=== PATIENT | female | born 1935 | race Two or more races ===

== ENCOUNTER 2017-05-02 21:19 | Inpatient (IN) | payer MEDICARE ==
[~2017-05-02] VITALS: Ht 167.6 cm; Wt 117.9 kg
[~2017-05-02 21:19] MED LIST: ARICEPT10 MG ORAL; ATORVASTATIN CA20 MG ORAL; AZITHROMYCIN500 M1 IVPB; DONEPEZIL HCL10 M2 ORAL; DUONEB 0.5-3(2.53 ML HHN; FUROSEMIDE20 M1 ORAL; LACTULOSE20 GM/301 ORAL; LANTUS SOL100 UNIT/1 SUBQ; LASIX20 M1 ORAL; LEVEMIR FL100 UNIT/1 SUBQ; LEXAPRO10 MG ORAL; LORAZEPAM1 MG ORAL; METOPROLOL TART25 MG ORAL; NAMENDA10 MG ORAL; NOVOLOG100 UNIT/3 SUBQ; NOVOLOG100 UNIT/4 SQ; NUEDEXTA 20-101 EAC1 PO; TYLENOL650 MG/20. ORAL
[2017-05-02] MEDS ORDERED: Albuterol/Ipratropium 3ml neb HHN ONE (21:30)
[2017-05-02 21:32] VITALS: BP 160/88
--- NOTE | 2017-05-02 21:44 | Emergency Room Report ---
History of Present Illness General Chief Complaint: Dyspnea/Respdistress Source: Patient Present Illness HPI Is an 81-year-old female with history of dementia and COPD. She presents with rest or distress. Onset tonight. Per EMS, nursing staff noted shortness of breath tonight. Consultation was 80% on room air. They put her on 4 L and it came up to 95%. Unable to get much history from the patient. No nausea no vomiting. No fever or chills. She does have coughing. Now complaining of chest pain. Allergies: Coded Allergies: ASPIRIN (Verified Allergy, Unknown, 12/30/15) CIPROFLOXACIN (Verified Allergy, Unknown, 12/30/15) PENICILLINS (Verified Allergy, Unknown, 12/30/15) Patient History Past Medical History: see triage record, old chart reviewed, COPD Past Surgical History: other Pertinent Family History: none Social History: Denies: smoking Now: No Immunizations: other Reviewed Nursing Documentation: PMH: Agreed, PSxH: Agreed Nursing Documentation-PMH Hx Hypertension: Yes Hx COPD: Yes Hx Diabetes: Yes Hx Cancer: No Hx Gastrointestinal Problems: Yes - GERD Hx Alzheimer's Disease: Yes Hx Weakness: Yes Review of Systems Eye: Denies: eye pain, blurred vision ENT: Denies: ear pain, nose congestion, throat swelling Respiratory: Reports: cough, shortness of breath Cardiovascular: Denies: chest pain, palpitations Gastrointestinal: Denies: abdominal pain, diarrhea, nausea, vomiting Musculoskeletal: Denies: back pain, joint pain Skin: Denies: rash Neurological: Denies: headache, numbness Endocrine: Denies: increased thirst, increased urine Hematologic/Lymphatic: Denies: easy bruising All Other Systems: negative except mentioned in HPI Physical Exam Vital Signs Date Time Temp Pulse Resp B/P (MAP) Pulse Ox O2 Delivery O2 Flow Rate FiO2 05/02/17 21:09 98 18 168/88 94 Nasal Cannula 4.0 05/02/17 21:32 98.3 vitals with hypoxia and hypertension Sp02 EP Interpretation: reviewed, abnormal General Appearance: well appearing, alert, mild distress, obese Head: normocephalic, atraumatic Eyes: bilateral eye PERRL, bilateral eye EOMI ENT: hearing grossly normal, normal pharynx Neck: full range of motion, supple, no meningismus Respiratory: chest non-tender, respiratory distress, decreased breath sounds, accessory muscle use, wheezing Cardiovascular #1: regular rate, rhythm, no murmur Gastrointestinal: normal bowel sounds, non tender, no mass, no organomegaly, no bruit, non-distended Musculoskeletal: back normal, gait/station normal, normal range of motion Neurologic: alert Psychiatric: mood/affect normal Skin: warm/dry Procedures Critical Care Time Critical Care Time Critical care is mandated in this patient who presented with acute respiratory failure. Patient require my urgent intervention to attenuate the risks of respiratory collapse which may lead to cardiovascular collapse and . Critical care time is 35 minutes excluding any reportable procedure. Critical care time included evaluation, multiple reevaluation, looking at old charts, interpreting laboratory and diagnostic data, discussing case with patient and family and consultants, and charting. Medical Decision Making Diagnostic Impression: Primary Impression: CHF exacerbation Qualified Codes: I50.9 - Heart failure, unspecified Additional Impressions: ACS (acute coronary syndrome) UTI (urinary tract infection) Qualified Codes: N30.00 - Acute cystitis without hematuria Acute respiratory failure with hypoxemia Proteinuria Qualified Codes: R80.9 - Proteinuria, unspecified Hyperglycemia due to type 2 diabetes mellitus Qualified Codes: E11.65 - Type 2 diabetes mellitus with hyperglycemia COPD exacerbation ER Course Patient presents with acute respiratory distress and hypoxia. Better after breathing treatment and oxygen. She does have component of CHF. Diuresed well after Lasix. Aspirin also given because of elevated troponin. Patient will be admitted for further workup. I contacted Dr. Jimenes for admission. Laboratory Tests Test 05/02/17 21:29 05/02/17 22:25 White Blood Count 9.0 K/UL (4.8-10.8) Red Blood Count 5.32 M/UL (4.20-5.40) Hemoglobin 12.8 G/DL (12.0-16.0) Hematocrit 45.3 % (37.0-47.0) Mean Corpuscular Volume 85 FL (80-99) Mean Corpuscular Hemoglobin 24.1 PG (27.0-31.0) L Mean Corpuscular Hemoglobin Concent 28.4 G/DL (32.0-36.0) L Red Cell Distribution Width 15.3 % (11.6-14.8) H Platelet Count 230 K/UL (150-450) Mean Platelet Volume 8.5 FL (6.5-10.1) Neutrophils (%) (Auto) 84.0 % (45.0-75.0) H Lymphocytes (%) (Auto) 7.9 % (20.0-45.0) L Monocytes (%) (Auto) 7.4 % (1.0-10.0) Eosinophils (%) (Auto) 0.1 % (0.0-3.0) Basophils (%) (Auto) 0.6 % (0.0-2.0) Prothrombin Time 10.7 SEC (9.30-11.50) Prothromb Time International Ratio 1.0 (0.9-1.1) Activated Partial Thromboplast Time 27 SEC (23-33) Sodium Level 143 MMOL/L (136-145) Potassium Level 4.5 MMOL/L (3.5-5.1) Chloride Level 104 MMOL/L (98-107) Carbon Dioxide Level 34 MMOL/L (21-32) H Anion Gap 5 mmol/L (5-15) Blood Urea Nitrogen 29 mg/dL (7-18) H Creatinine 1.1 MG/DL (0.55-1.30) Estimat Glomerular Filtration Rate mL/min (>60) Glucose Level 289 MG/DL (74-106) H Lactic Acid Level 1.50 mmol/L (0.66-2.22) Calcium Level 8.0 MG/DL (8.5-10.1) L Total Bilirubin 0.5 MG/DL (0.2-1.0) Aspartate Amino Transf (AST/SGOT) 23 U/L (15-37) Alanine Aminotransferase (ALT/SGPT) 15 U/L (12-78) Alkaline Phosphatase 139 U/L (46-116) H Total Creatine Kinase 74 U/L (26-308) Creatine Kinase MB 1.3 NG/ML (0.0-3.6) Creatine Kinase MB Relative Index 1.7 Troponin I 0.091 ng/mL (0.000-0.056) Pro-B-Type Natriuretic Peptide 2619 pg/mL (0-125) H Total Protein 8.4 G/DL (6.4-8.2) H Albumin 2.0 G/DL (3.4-5.0) L Globulin 6.4 g/dL Albumin/Globulin Ratio 0.3 (1.0-2.7) L Urine Color Yellow Urine Appearance Clear Urine pH 6 (4.5-8.0) Urine Specific [place] 1.015 (1.005-1.035) Urine Protein 3+ (NEGATIVE) H Urine Glucose (UA) Negative (NEGATIVE) Urine Ketones Negative (NEGATIVE) Urine Occult Blood 4+ (NEGATIVE) H Urine Nitrite Negative (NEGATIVE) Urine Bilirubin Negative (NEGATIVE) Urine Urobilinogen 4 MG/DL (0.0-1.0) H Urine Leukocyte Esterase 1+ (NEGATIVE) H Urine RBC 5-10 /HPF (0 - 2) H Urine WBC 2-4 /HPF (0 - 2) Urine Squamous Epithelial Cells Few /LPF (NONE/OCC) Urine Bacteria Moderate /HPF (NONE) H Urine Yeast Few /HPF (NONE) H Lab Results Impression labs with elevated BNP EKG Diagnostic Results Rate: normal Rhythm: NSR ST Segments: no acute changes Rhythm Strip Diag. Results Rhythm Strip Time: 21:44 Rate: 90 Rhythm: NSR, no PVC's, no ectopy Chest X-Ray Diagnostic Results Chest X-Ray Diagnostic Results : Chest X-Ray Ordered: Yes # of Views/Limited/Complete: 1 View Indication: Shortness of Breath EP Interpretation: Yes Interpretation: no effusion, no pneumothorax, other - Cardiomegaly, increasing vasc congestion. Impression: Other - chf Electronically Signed by: Juan José You MD Last Vital Signs Date Time Temp Pulse Resp B/P (MAP) Pulse Ox O2 Delivery O2 Flow Rate FiO2 05/02/17 21:38 92 18 Nasal Cannula 2.0 05/02/17 21:38 94 05/02/17 21:32 98.3 160/88 Status: improved Disposition: ADMITTED INPATIENT Condition: Serious JUAN JOSÉ YOU M.D. May 02, 2017 21:44
[2017-05-02] MEDS ORDERED: Solu-MEDROL 125mg Inj IVP ONE (21:45)
[2017-05-02] MEDS ORDERED: TOUJEO SOL300 UNIT/1 SQ (21:51)
[2017-05-02] MEDS ORDERED: POTASSIUM CHLO20 ME2 ORAL (21:51)
[2017-05-02] MEDS ORDERED: JANUVIA25 MG ORAL (21:51)
[2017-05-02 22:18] LABS: BASOPHILS % (AUTO) 0.6 % (0.0-2.0); EOSINOPHILS % (AUTO) 0.1 % (0.0-3.0); HEMATOCRIT 45.3 % (37.0-47.0); HEMOGLOBIN 12.8 G/DL (12.0-16.0); LYMPHOCYTES % (AUTO) 7.9 % (20.0-45.0); MEAN CORPUSCULAR VOLUME 85 FL (80-99); MONOCYTES % (AUTO) 7.4 % (1.0-10.0); PLATELET COUNT 230 K/UL (150-450); RED BLOOD COUNT 5.32 M/UL (4.20-5.40); RED CELL DISTRIBUTION WIDTH 15.3 % (11.6-14.8)
[2017-05-02 22:23] LABS: ANION GAP 5 mmol/L (5-15); BLOOD UREA NITROGEN 29 mg/dL (7-18); CARBON DIOXIDE 34 MMOL/L (21-32); CHLORIDE 104 MMOL/L (98-107); CREATININE 1.1 MG/DL (0.55-1.30); POTASSIUM 4.5 MMOL/L (3.5-5.1); SODIUM 143 MMOL/L (136-145)
[2017-05-02 22:37] LABS: ALANINE AMINOTRANSFERASE 15 U/L (12-78); ALBUMIN/GLOBULIN RATIO 0.3 (1.0-2.7); ALKALINE PHOSPHATASE 139 U/L (46-116); ASPARTATE AMINO TRANSFERASE 23 U/L (15-37); BILIRUBIN,TOTAL 0.5 MG/DL (0.2-1.0); CKMB 1.3 NG/ML (0.0-3.6); CREATINE KINASE 74 U/L (26-308)
[2017-05-02 22:51] LABS: APPEARANCE,URINE CLEAR; BILIRUBIN, URINE NEGATIVE (NEGATIVE); GLUCOSE, URINE (UA) NEGATIVE (NEGATIVE); KETONES,URINE NEGATIVE (NEGATIVE); LEUKOCYTE ESTERASE ,URINE 1+ (NEGATIVE); NITRITE,URINE NEGATIVE (NEGATIVE); PH,URINE 6 (4.5-8.0); PROTEIN,URINE 3+ (NEGATIVE); UROBILINOGEN,URINE 4 MG/DL (0.0-1.0)
[2017-05-02 22:52] LABS: COLOR,URINE YELLOW
[2017-05-02 23:09] VITALS: BP 158/80
[2017-05-02] MEDS ORDERED: Cefepime 1gm vial ONE (23:11)
[2017-05-02] MEDS ORDERED: Cefepime HCl 1 GM in D5W 55 ML IVPB ONE (23:15)
[2017-05-02] MEDS ORDERED: Enoxaparin 100mg Inj SUBQ ONE (23:15)
[2017-05-03] VITALS (10 sets, daily range): BP systolic 117–172; BP diastolic 62–92
[2017-05-03] MEDS ORDERED: Albuterol/Ipratropium 3ml neb HHN PRN (00:45)
[2017-05-03] MEDS ORDERED: Miralax 17gm pkt ORAL PRN (00:45)
[2017-05-03] MEDS: LORazepam 1mg tab ORAL SCH ×3 (06:11→17:16)
[2017-05-03] MEDS: NovoLOG Insulin Flexpen SUBQ SCH ×4 (07:34→21:00)
[2017-05-03] MEDS: Memantine 10mg tab ORAL SCH (09:13)
[2017-05-03] MEDS: Donepezil 10mg tab ORAL SCH (09:14)
--- NOTE | 2017-05-03 09:30 | History and Physical ---
History of Present Illness General Date patient seen: May 03, 2017 Reason for Hospitalization: Dyspnea/Respdistress Present Illness HPI 81-year-old female with history of dementia and COPD, HTN, morbid obesity, bed bound presented to ER with CC of respiratory distress distress. Onset tonight. Per EMS, nursing staff noted shortness of breath tonight. Consultation was 80% on room air. They put her on 4 L and it came up to 95%. Unable to get much history from the patient. No nausea no vomiting. No fever or chills. She does have coughing. Now complaining of chest pain. her troponin was elevated and she is admitted to telemetry for further management. Allergies: Coded Allergies: ASPIRIN (Verified Allergy, Unknown, 12/30/15) CIPROFLOXACIN (Verified Allergy, Unknown, 12/30/15) PENICILLINS (Verified Allergy, Unknown, 12/30/15) Medication History Scheduled Atorvastatin Calcium* (Atorvastatin Calcium*), 10 MG ORAL BEDTIME, (Reported) Azithromycin (Azithromycin), 500 MG IVPB Q24H, (Reported) Donepezil Hcl* (Donepezil Hcl*), 10 MG ORAL DAILY, (Reported) Donepezil Hcl* (Aricept*), 10 MG ORAL HS, (Reported) Escitalopram Oxalate* (Lexapro*), 10 MG ORAL DAILY, (Reported) Escitalopram Oxalate* (Lexapro*), 10 MG ORAL DAILY, (Reported) Furosemide* (Lasix*), 20 MG ORAL TWICE A DAY, (Reported) Furosemide* (Lasix*), 20 MG ORAL BID, (Reported) Insulin Aspart (Novolog), 12 UNIT SQ BID, (Reported) Insulin Aspart (Novolog), 8 UNIT SQ BEFORE BREAKFAST, (Reported) Insulin Aspart* (Novolog*), 0 SUBQ BEFORE MEALS AND HS, (Reported) Insulin Detemir (Levemir Flexpen), 60 SUBQ EVERY 12 HOURS, (Reported) Insulin Detemir (Levemir Flexpen), 60 SUBQ EVERY 12 HOURS, (Reported) Insulin Glargine (Lantus), 55 SUBQ EVERY 12 HOURS, (Reported) Ipratropium/Albuterol Sulfate (DuoNeb 0.5-3(2.5)mg/3ml), 3 ML HHN Q6HR, ( Reported) Lactulose (Lactulose*), 30 ML ORAL DAILY, (Reported) Lorazepam* (Lorazepam*), 1 MG ORAL EVERY 6 HOURS, (Reported) Memantine Hcl* (Namenda*), 10 MG ORAL DAILY, (Reported) Memantine Hcl* (Namenda*), 10 MG ORAL DAILY, (Reported) Metoprolol Tartrate* (Metoprolol Tartrate*), 25 MG ORAL DAILY, (Reported) Metoprolol Tartrate* (Metoprolol Tartrate*), 25 MG ORAL DAILY, (Reported) Potassium Chloride (Potassium Chloride), 20 MEQ ORAL DAILY, (Reported) Sitagliptin* (Januvia*), 100 MG ORAL DAILY, (Reported) Scheduled PRN Acetaminophen (Acetaminophen), 650 MG ORAL Q6H PRN for Mild Pain/Temp > 100.5, ( Reported) Ipratropium/Albuterol Sulfate (DuoNeb 0.5-3(2.5)mg/3ml), 3 ML HHN EVERY 6 HOURS PRN for Shortness of Breath, (Reported) Lactulose (Lactulose*), 30 ML ORAL DAILY PRN for Constipation, (Reported) Lorazepam* (Lorazepam*), 1 MG ORAL EVERY 6 HOURS PRN for For Anxiety, (Reported) Miscellaneous Medications Dextromethorphan Hbr/Quinidine (Nuedexta 20-10 Mg Capsule), 1 EACH PO, (Reported ) Insulin Glargine,Hum.rec.anlog (Toujeo Solostar), 300 UNIT SQ, (Reported) Lactulose (Lactulose*), 30 ML ORAL, (Reported) Patient History Healthcare decision maker Resuscitation status Advanced Directive on File Past Medical/Surgical History Past Medical/Surgical History: (1) Depression (2) Morbid obesity (3) Psychosis (4) ARJUN (obstructive sleep apnea) Review of Systems Respiratory: Reports: orthopnea, shortness of breath All Other Systems: negative except mentioned in HPI Physical Exam General Appearance: morbidly obese Lines, tubes and drains: peripheral HEENT: normocephalic, atraumatic Neck: non-tender, normal alignment Respiratory/Chest: chest wall non-tender, normal breath sounds Breasts: no masses Cardiovascular/Chest: normal peripheral pulses Abdomen: normal bowel sounds Genitourinary/Rectal: normal genital exam Extremities: normal range of motion Skin Exam: normal pigmentation Neurologic: it professional II-XII grossly normal Last 24 Hour Vital Signs Date Time Temp Pulse Resp B/P (MAP) Pulse Ox O2 Delivery O2 Flow Rate FiO2 05/03/17 05:28 80 17 143/64 94 Nasal Cannula 4.0 05/03/17 03:24 79 18 172/92 96 Nasal Cannula 4.0 05/03/17 01:10 94 30 163/87 93 Nasal Cannula 4.0 05/02/17 23:09 96 20 158/80 93 Nasal Cannula 4.0 05/02/17 22:29 82 17 99 Nasal Cannula 2.0 05/02/17 21:44 85 18 100 Nasal Cannula 2.0 05/02/17 21:38 92 18 Nasal Cannula 2.0 05/02/17 21:38 92 18 94 Room Air 2.0 05/02/17 21:32 98.3 91 22 160/88 93 Nasal Cannula 5.0 05/02/17 21:19 98 18 Nasal Cannula 4.0 05/02/17 21:09 98 18 168/88 94 Nasal Cannula 4.0 Intake and Output 05/02/17 05/03/17 19:00 07:00 Intake Total 1055 ml Output Total 330 ml Balance 725 ml Intake IV Total 1055 ml Output Urine Total 330 ml Laboratory Tests Test 05/02/17 21:29 05/02/17 22:25 05/03/17 05:17 White Blood Count 9.0 K/UL (4.8-10.8) Red Blood Count 5.32 M/UL (4.20-5.40) Hemoglobin 12.8 G/DL (12.0-16.0) Hematocrit 45.3 % (37.0-47.0) Mean Corpuscular Volume 85 FL (80-99) Mean Corpuscular Hemoglobin 24.1 PG (27.0-31.0) L Mean Corpuscular Hemoglobin Concent 28.4 G/DL (32.0-36.0) L Red Cell Distribution Width 15.3 % (11.6-14.8) H Platelet Count 230 K/UL (150-450) Mean Platelet Volume 8.5 FL (6.5-10.1) Neutrophils (%) (Auto) 84.0 % (45.0-75.0) H Lymphocytes (%) (Auto) 7.9 % (20.0-45.0) L Monocytes (%) (Auto) 7.4 % (1.0-10.0) Eosinophils (%) (Auto) 0.1 % (0.0-3.0) Basophils (%) (Auto) 0.6 % (0.0-2.0) Prothrombin Time 10.7 SEC (9.30-11.50) Prothromb Time International Ratio 1.0 (0.9-1.1) Activated Partial Thromboplast Time 27 SEC (23-33) Sodium Level 143 MMOL/L (136-145) Potassium Level 4.5 MMOL/L (3.5-5.1) Chloride Level 104 MMOL/L (98-107) Carbon Dioxide Level 34 MMOL/L (21-32) H Anion Gap 5 mmol/L (5-15) Blood Urea Nitrogen 29 mg/dL (7-18) H Creatinine 1.1 MG/DL (0.55-1.30) Estimat Glomerular Filtration Rate mL/min (>60) Glucose Level 289 MG/DL (74-106) H Lactic Acid Level 1.50 mmol/L (0.66-2.22) Calcium Level 8.0 MG/DL (8.5-10.1) L Total Bilirubin 0.5 MG/DL (0.2-1.0) Aspartate Amino Transf (AST/SGOT) 23 U/L (15-37) Alanine Aminotransferase (ALT/SGPT) 15 U/L (12-78) Alkaline Phosphatase 139 U/L (46-116) H Total Creatine Kinase 74 U/L (26-308) Creatine Kinase MB 1.3 NG/ML (0.0-3.6) Creatine Kinase MB Relative Index 1.7 Troponin I 0.091 ng/mL (0.000-0.056) 0.073 ng/mL (0.000-0.056) Pro-B-Type Natriuretic Peptide 2619 pg/mL (0-125) H Total Protein 8.4 G/DL (6.4-8.2) H Albumin 2.0 G/DL (3.4-5.0) L Globulin 6.4 g/dL Albumin/Globulin Ratio 0.3 (1.0-2.7) L Urine Color Yellow Urine Appearance Clear Urine pH 6 (4.5-8.0) Urine Specific [place] 1.015 (1.005-1.035) Urine Protein 3+ (NEGATIVE) H Urine Glucose (UA) Negative (NEGATIVE) Urine Ketones Negative (NEGATIVE) Urine Occult Blood 4+ (NEGATIVE) H Urine Nitrite Negative (NEGATIVE) Urine Bilirubin Negative (NEGATIVE) Urine Urobilinogen 4 MG/DL (0.0-1.0) H Urine Leukocyte Esterase 1+ (NEGATIVE) H Urine RBC 5-10 /HPF (0 - 2) H Urine WBC 2-4 /HPF (0 - 2) Urine Squamous Epithelial Cells Few /LPF (NONE/OCC) Urine Bacteria Moderate /HPF (NONE) H Urine Yeast Few /HPF (NONE) H Microbiology Date/Time Source Procedure Growth Status 05/02/17 21:29 Nasal Nares Influenza Types A,B Antigen (JAZMINE) - Final Complete Height (Feet): 5 Height (Inches): 6.00 Weight (Pounds): 260 Medications Current Medications Medications (Trade) Dose Ordered Sig/Marah Route PRN Reason Start Time Stop Time Status Last Admin Dose Admin Acetaminophen (Tylenol) 650 mg Q4H PRN ORAL Fever 05/03/17 00:45 06/02/17 00:44 Albuterol/ Ipratropium (Albuterol/ Ipratropium) 3 ml Q4H PRN HHN Shortness of Breath 05/03/17 00:45 05/08/17 00:44 Dextrose (Dextrose 50%) STAT PRN IV Hypoglycemia 05/03/17 00:45 06/02/17 00:44 Donepezil HCl (Aricept) 10 mg DAILY ORAL 05/03/17 09:00 06/02/17 08:59 05/03/17 09:14 Escitalopram Oxalate (Lexapro) 10 mg DAILY ORAL 05/03/17 09:00 06/02/17 08:59 05/03/17 09:14 Furosemide (Lasix) 40 mg EVERY 8 HOURS IV 05/03/17 06:00 06/02/17 05:59 05/03/17 06:11 Heparin Sodium (Porcine) (Heparin 5000 units/ml) 5,000 units EVERY 12 HOURS SUBQ 05/03/17 09:00 06/02/17 08:59 Insulin Aspart (NovoLOG) BEFORE MEALS AND HS SUBQ 05/03/17 07:30 06/02/17 07:29 05/03/17 07:34 Lorazepam (Ativan) 1 mg EVERY 6 HOURS ORAL 05/03/17 06:00 05/10/17 05:59 05/03/17 06:11 Memantine (Namenda) 10 mg DAILY ORAL 05/03/17 09:00 06/02/17 08:59 05/03/17 09:13 Ondansetron HCl (Zofran) 4 mg Q6H PRN IVP Nausea & Vomiting 05/03/17 00:45 06/02/17 00:44 Polyethylene Glycol (Miralax) 17 gm DAILYPRN PRN ORAL Constipation 05/03/17 00:45 06/02/17 00:44 Sitagliptin Phosphate (Januvia) 100 mg ACBREAKFAST ORAL 05/03/17 11:30 06/02/17 11:29 Temazepam (Restoril) 15 mg HSPRN PRN ORAL Insomnia 05/03/17 00:45 05/10/17 00:44 Assessment/Plan Problem List: (1) Acute respiratory failure with hypoxemia ICD Codes: J96.01 - Acute respiratory failure with hypoxia SNOMED: 915163425 (2) CHF exacerbation ICD Codes: I50.9 - Heart failure, unspecified SNOMED: 32261058, 18929495 Qualifiers: Qualified Codes: I50.9 - Heart failure, unspecified (3) Hyperglycemia due to type 2 diabetes mellitus ICD Codes: E11.65 - Type 2 diabetes mellitus with hyperglycemia SNOMED: 907657596749156, 06222410 Qualifiers: Qualified Codes: E11.65 - Type 2 diabetes mellitus with hyperglycemia (4) COPD exacerbation ICD Codes: J44.1 - Chronic obstructive pulmonary disease with (acute) exacerbation SNOMED: 280394798 (5) ACS (acute coronary syndrome) ICD Codes: I24.9 - Acute ischemic heart disease, unspecified SNOMED: 849373531 (6) Psychosis ICD Codes: F29 - Unspecified psychosis not due to a substance or known physiological condition SNOMED: 88818057 (7) ARJUN (obstructive sleep apnea) ICD Codes: G47.33 - Obstructive sleep apnea (adult) (pediatric) SNOMED: 34310419 (8) Depression ICD Codes: F32.9 - Major depressive disorder, single episode, unspecified SNOMED: 95251819 (9) Morbid obesity ICD Codes: E66.01 - Morbid (severe) obesity due to excess calories SNOMED: 550500608, 91634578339349 Assessment/Plan respiratorty treatment titrate fio2 diuretic f/u bnp cario evaluation dvt prophylaxis YEIMY SORENSEN May 03, 2017 09:30
[2017-05-03 09:54] LABS: HEMATOCRIT 42.2 % (37.0-47.0); HEMOGLOBIN 12.8 G/DL (12.0-16.0); MEAN CORPUSCULAR VOLUME 84 FL (80-99); PLATELET COUNT 217 K/UL (150-450); RED BLOOD COUNT 5.04 M/UL (4.20-5.40); RED CELL DISTRIBUTION WIDTH 15.4 % (11.6-14.8); WHITE BLOOD COUNT 8.8 K/UL (4.8-10.8)
[2017-05-03 10:13] LABS: ALANINE AMINOTRANSFERASE 23 U/L (12-78); ALBUMIN 1.9 G/DL (3.4-5.0); ALBUMIN/GLOBULIN RATIO 0.3 (1.0-2.7); ALKALINE PHOSPHATASE 138 U/L (46-116); ANION GAP 9 mmol/L (5-15); ASPARTATE AMINO TRANSFERASE 22 U/L (15-37); BILIRUBIN,TOTAL 0.4 MG/DL (0.2-1.0); BLOOD UREA NITROGEN 27 mg/dL (7-18); CALCIUM 7.9 MG/DL (8.5-10.1); CARBON DIOXIDE 32 MMOL/L (21-32); CHLORIDE 105 MMOL/L (98-107); CREATININE 1.1 MG/DL (0.55-1.30); POTASSIUM 4.4 MMOL/L (3.5-5.1); SODIUM 145 MMOL/L (136-145)
[2017-05-03] MEDS: Heparin 5000 units/ml inj SUBQ SCH ×2 (11:13→21:00)
--- NOTE | 2017-05-03 12:50 | Diagnostic Imaging Report ---
Indication: Dyspnea Comparison: 12/30/2015 A single view chest radiograph was obtained. Findings: Vascular prominence and interstitial opacities are present with cardiomegaly. Perifissural atelectasis versus a small amount of fissural fluid noted about the minor fissure. Bones are osteopenic. IMPRESSION: Suspected interstitial edema.
--- NOTE | 2017-05-03 17:38 | Cardiology Report ---
APPROVED REPORT EXAM: Two-dimensional and M-mode echocardiogram with Doppler and color Doppler. INDICATION Left ventricular function M-Mode DIMENSIONS IVSd1.4 (0.7-1.1cm)Left Atrium (MM)5.0 (1.6-4.0cm) LVDd3.7 (3.5-5.6cm)Aortic Root3.0 (2.0-3.7cm) PWd1.1 (0.7-1.1cm)Aortic Cusp Exc.2.0 (1.5-2.0cm) LVDs3.0 (2.5-4.0cm) PWs1.2 cm Other Information Technically limited study due to Technically limited and difficult study due to combative patient. Patient request to terminate exam early. Only parasternal views obtained. Normal left ventricular chamber size, systolic function and wall motion to extent visualized. Left ventricular ejection fraction estimated to be 60 %. Mild ventricular hypertrophy. Anterior Echo-free space, may be due to pericardial fat or effusion Mild left atrial enlargement. Focal aortic valve sclerosis with adequate cusp excursion. Thickened mitral valve leaflets with normal excursion. Mild mitral annulus and aortic root calcification. Pulmonic valve not well visualized. Normal tricuspid valve structure. STUDY INCOMPLETE DUE TO PTS LACK OF COOPERATION , NOT ALL STRUCTURES WERE VISUALIZED A color flow and spectral Doppler study was performed and revealed: Trace tricuspid regurgitation. Mild pulmonic regurgitation present.
--- NOTE | 2017-05-03 17:54 | Cardiology Report ---
APPROVED REPORT EKG Measurement Heart Ocly03ARNP LA [id number] Normal sinus rhythm Normal ECG
--- NOTE | 2017-05-03 18:57 | Cardiology Progress Note ---
Assessment/Plan Assessment/Plan [id number] Objective Last 24 Hour Vital Signs Date Time Temp Pulse Resp B/P (MAP) Pulse Ox O2 Delivery O2 Flow Rate FiO2 05/03/17 16:24 84 05/03/17 16:23 97.0 80 22 141/75 95 Nasal Cannula 4.0 05/03/17 15:38 98.2 80 21 144/60 94 Nasal Cannula 4.0 05/03/17 14:30 97.5 85 19 137/80 95 Nasal Cannula 4.0 05/03/17 12:40 98.2 87 15 126/62 97 Nasal Cannula 4.0 05/03/17 10:30 98.7 105 20 139/69 96 Nasal Cannula 4.0 05/03/17 09:04 89 21 152/75 94 Nasal Cannula 4.0 05/03/17 08:00 98.6 82 26 117/68 94 Nasal Cannula 4.0 05/03/17 05:28 80 17 143/64 94 Nasal Cannula 4.0 05/03/17 03:24 79 18 172/92 96 Nasal Cannula 4.0 05/03/17 01:10 94 30 163/87 93 Nasal Cannula 4.0 05/02/17 23:09 96 20 158/80 93 Nasal Cannula 4.0 05/02/17 22:29 82 17 99 Nasal Cannula 2.0 05/02/17 21:44 85 18 100 Nasal Cannula 2.0 05/02/17 21:38 92 18 Nasal Cannula 2.0 05/02/17 21:38 92 18 94 Room Air 2.0 05/02/17 21:32 98.3 91 22 160/88 93 Nasal Cannula 5.0 05/02/17 21:19 98 18 Nasal Cannula 4.0 05/02/17 21:09 98 18 168/88 94 Nasal Cannula 4.0 Intake and Output 05/02/17 05/03/17 19:00 07:00 Intake Total 1055 ml Output Total 330 ml Balance 725 ml Intake IV Total 1055 ml Output Urine Total 330 ml Laboratory Tests Test 05/02/17 21:29 05/02/17 22:25 05/03/17 05:17 White Blood Count 9.0 K/UL (4.8-10.8) 8.8 K/UL (4.8-10.8) Red Blood Count 5.32 M/UL (4.20-5.40) 5.04 M/UL (4.20-5.40) Hemoglobin 12.8 G/DL (12.0-16.0) 12.8 G/DL (12.0-16.0) Hematocrit 45.3 % (37.0-47.0) 42.2 % (37.0-47.0) Mean Corpuscular Volume 85 FL (80-99) 84 FL (80-99) Mean Corpuscular Hemoglobin 24.1 PG (27.0-31.0) L 25.3 PG (27.0-31.0) L Mean Corpuscular Hemoglobin Concent 28.4 G/DL (32.0-36.0) L 30.3 G/DL (32.0-36.0) L Red Cell Distribution Width 15.3 % (11.6-14.8) H 15.4 % (11.6-14.8) H Platelet Count 230 K/UL (150-450) 217 K/UL (150-450) Mean Platelet Volume 8.5 FL (6.5-10.1) 9.0 FL (6.5-10.1) Neutrophils (%) (Auto) 84.0 % (45.0-75.0) H % (45.0-75.0) Lymphocytes (%) (Auto) 7.9 % (20.0-45.0) L % (20.0-45.0) Monocytes (%) (Auto) 7.4 % (1.0-10.0) % (1.0-10.0) Eosinophils (%) (Auto) 0.1 % (0.0-3.0) % (0.0-3.0) Basophils (%) (Auto) 0.6 % (0.0-2.0) % (0.0-2.0) Prothrombin Time 10.7 SEC (9.30-11.50) Prothromb Time International Ratio 1.0 (0.9-1.1) Activated Partial Thromboplast Time 27 SEC (23-33) Sodium Level 143 MMOL/L (136-145) 145 MMOL/L (136-145) Potassium Level 4.5 MMOL/L (3.5-5.1) 4.4 MMOL/L (3.5-5.1) Chloride Level 104 MMOL/L (98-107) 105 MMOL/L (98-107) Carbon Dioxide Level 34 MMOL/L (21-32) H 32 MMOL/L (21-32) Anion Gap 5 mmol/L (5-15) 9 mmol/L (5-15) Blood Urea Nitrogen 29 mg/dL (7-18) H 27 mg/dL (7-18) H Creatinine 1.1 MG/DL (0.55-1.30) 1.1 MG/DL (0.55-1.30) Estimat Glomerular Filtration Rate mL/min (>60) mL/min (>60) Glucose Level 289 MG/DL (74-106) H 307 MG/DL (74-106) H Lactic Acid Level 1.50 mmol/L (0.66-2.22) Calcium Level 8.0 MG/DL (8.5-10.1) L 7.9 MG/DL (8.5-10.1) L Total Bilirubin 0.5 MG/DL (0.2-1.0) 0.4 MG/DL (0.2-1.0) Aspartate Amino Transf (AST/SGOT) 23 U/L (15-37) 22 U/L (15-37) Alanine Aminotransferase (ALT/SGPT) 15 U/L (12-78) 23 U/L (12-78) Alkaline Phosphatase 139 U/L (46-116) H 138 U/L (46-116) H Total Creatine Kinase 74 U/L (26-308) Creatine Kinase MB 1.3 NG/ML (0.0-3.6) Creatine Kinase MB Relative Index 1.7 Troponin I 0.091 ng/mL (0.000-0.056) 0.073 ng/mL (0.000-0.056) Pro-B-Type Natriuretic Peptide 2619 pg/mL (0-125) H 3080 pg/mL (0-125) H Total Protein 8.4 G/DL (6.4-8.2) H 8.5 G/DL (6.4-8.2) H Albumin 2.0 G/DL (3.4-5.0) L 1.9 G/DL (3.4-5.0) L Globulin 6.4 g/dL 6.6 g/dL Albumin/Globulin Ratio 0.3 (1.0-2.7) L 0.3 (1.0-2.7) L Urine Color Yellow Urine Appearance Clear Urine pH 6 (4.5-8.0) Urine Specific [place] 1.015 (1.005-1.035) Urine Protein 3+ (NEGATIVE) H Urine Glucose (UA) Negative (NEGATIVE) Urine Ketones Negative (NEGATIVE) Urine Occult Blood 4+ (NEGATIVE) H Urine Nitrite Negative (NEGATIVE) Urine Bilirubin Negative (NEGATIVE) Urine Urobilinogen 4 MG/DL (0.0-1.0) H Urine Leukocyte Esterase 1+ (NEGATIVE) H Urine RBC 5-10 /HPF (0 - 2) H Urine WBC 2-4 /HPF (0 - 2) Urine Squamous Epithelial Cells Few /LPF (NONE/OCC) Urine Bacteria Moderate /HPF (NONE) H Urine Yeast Few /HPF (NONE) H Differential Total Cells Counted 100 Neutrophils % (Manual) 89 % (45-75) H Lymphocytes % (Manual) 7 % (20-45) L Monocytes % (Manual) 4 % (1-10) Eosinophils % (Manual) 0 % (0-3) Basophils % (Manual) 0 % (0-2) Band Neutrophils 0 % (0-8) Platelet Estimate Adequate Platelet Morphology Normal Red Blood Cell Morphology Normal Microbiology Date/Time Source Procedure Growth Status 05/02/17 21:29 Nasal Nares Influenza Types A,B Antigen (JAZMINE) - Final Complete SOCORRO MINAYA May 03, 2017 18:56
[2017-05-04 00:39] VITALS: BP 120/74
[2017-05-04 04:32] VITALS: BP 119/68
[2017-05-04] MEDS: NovoLOG Insulin Flexpen SUBQ SCH ×4 (06:53→21:47)
[2017-05-04 08:00] VITALS: BP 121/74
[2017-05-04] MEDS: Donepezil 10mg tab ORAL SCH (08:11)
[2017-05-04] MEDS: Memantine 10mg tab ORAL SCH (08:11)
[2017-05-04] MEDS: Heparin 5000 units/ml inj SUBQ SCH ×2 (08:14→21:48)
[2017-05-04 08:41] LABS: BASOPHILS % (AUTO) 0.7 % (0.0-2.0); EOSINOPHILS % (AUTO) 0.5 % (0.0-3.0); HEMATOCRIT 44.9 % (37.0-47.0); HEMOGLOBIN 13.1 G/DL (12.0-16.0); MEAN CORPUSCULAR VOLUME 86 FL (80-99); MONOCYTES % (AUTO) 8.3 % (1.0-10.0); NEUTROPHILS % (AUTO) 81.5 % (45.0-75.0); PLATELET COUNT 237 K/UL (150-450); RED BLOOD COUNT 5.25 M/UL (4.20-5.40); RED CELL DISTRIBUTION WIDTH 15.3 % (11.6-14.8); WHITE BLOOD COUNT 10.2 K/UL (4.8-10.8)
--- NOTE | 2017-05-04 09:42 | Consultation ---
DATE OF CONSULTATION: 05/03/2017 CARDIOLOGY CONSULTATION CONSULTING PHYSICIAN: Camacho Cabrera M.D. ATTENDING/REFERRING PHYSICIAN: Brice John M.D. REASON FOR REFERRAL: Abnormal cardiac enzymes. HISTORY OF PRESENT ILLNESS: This is an elderly female, whose information is obtained completely from review of the patient's chart. The patient unfortunately is not able to provide any meaningful history. She is a [facility] and multiple medical problems. It appears that she was transferred from a convalescent facility because of shortness of breath. The patient is confused and has history of Alzheimer's. Initial oxygen saturation was 85% on room air. No pedal edema. No jugular venous distention. The patient denies any chest pain, nausea, and negative for dizziness. A 12-lead EKG was done. The patient's blood sugar was checked . 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 Her initial blood pressure when she was found by them was 167/88. The patient was subsequently evaluated in the emergency room, was noted to have abnormal cardiac enzymes, and this consultation was requested. PAST MEDICAL HISTORY: Positive for history of psychoses, Alzheimer disease, depression, alteration of mental status, chronic obstructive pulmonary disease, generalized muscle weakness, systemic hypertension, gastroesophageal reflux disease, schizophrenia, pseudobulbar affect, morbid obesity, restlessness and agitation, and diabetes mellitus type 2 with hyperglycemia. According to the chart also, the patient had last been hospitalized here in 12/2015. ALLERGIES: The patient is allergic to aspirin, Cipro, and penicillin. SOCIAL HISTORY: She is a [facility]. No smoking or drinking of alcoholic beverages at this time. REVIEW OF SYSTEMS: Unable to obtain. PHYSICAL EXAMINATION: GENERAL: Shows a morbidly obese elderly female, in no respiratory distress. She is very agitable and combative during my evaluation and would not allow me to fully evaluate her. VITAL SIGNS: Blood pressure is 141/75 with heart rate of 80, temperature 97 degrees, and on 4 liters nasal cannula, oxygen saturation 95%. LUNGS: Clear to auscultation anteriorly. CARDIAC: Regular rate and rhythm. No heaves, thrills noted. ABDOMEN: Soft, obese. Positive bowel sounds. EXTREMITIES: No edema. LABORATORY AND DIAGNOSTIC DATA: White count 8.8, hemoglobin 12.8, and platelet count 217,000. Sodium 145, potassium 4.4, chloride 105, bicarbonate 32, BUN 27, creatinine 1.1, glucose of 307, calcium 7.9. Alkaline phosphatase was 139. Troponin 0.091, 0.073. ProBNP is 2600 to 3000. Her coagulation studies, INR 1.3 and PTT of 27. Urinalysis was 5-10 RBCs, 2-4 WBCs, and she had a chest x-ray performed that shows interstitial edema possibly and an echocardiogram was performed that showed technically difficult study with limited evaluation, only parasternal views available, ejection fraction estimated at 60% on those views, mild left ventricular hypertrophy, and minimal valvular regurgitation. Diastolic dysfunction cannot be evaluated because of lack of cooperation by the patient. ASSESSMENT AND PLAN: 1. Hypoxemia. 2. Morbid obesity. 3. Psychoses, history of schizophrenia. 4. Systemic hypertension. 5. Diabetes mellitus with poor control. This patient has been admitted to the hospital. There are minor troponin abnormalities, but not significant enough to be identified as myocardial infarction. As of yet, the patient's electrocardiogram does not show any significant ST or T-wave abnormalities. The patient does not allow full examination. Echocardiogram was also limited because of the patient's non-cooperation. We will follow the trend of the cardiac enzymes and EKGs. Aspirin will be provided. Diuretics will be administered for possibility of interstitial edema in light of the findings, however, because of the patient's limited cooperation, limited evaluation is only possible. Camacho Cabrera M.D. DR: Estefany JOB#: [id number] CC:
--- NOTE | 2017-05-04 09:43 | Consultation ---
DATE OF CONSULTATION: 05/03/2016 NOTE: INCOMPLETE DICTATION CARDIOLOGY CONSULTATION CONSULTING PHYSICIAN: Camacho Cabrera M.D. REFERRING PHYSICIAN: Brice John M.D. REASON FOR REFERRAL: Abnormal cardiac enzymes. HISTORY OF PRESENT ILLNESS: This is an elderly female, who is really not able to provide any meaningful history, whatsoever. Information is obtained from the patient's chart. The patient was transferred from a convalescent facility. 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 Camacho Cabrera M.D. DR: Chavez JOB#: [id number] CC:
[2017-05-04 10:08] LABS: ALANINE AMINOTRANSFERASE 23 U/L (12-78); ALBUMIN 1.9 G/DL (3.4-5.0); ALBUMIN/GLOBULIN RATIO 0.3 (1.0-2.7); ALKALINE PHOSPHATASE 136 U/L (46-116); ANION GAP 4 mmol/L (5-15); ASPARTATE AMINO TRANSFERASE 23 U/L (15-37); BILIRUBIN,TOTAL 0.4 MG/DL (0.2-1.0); BLOOD UREA NITROGEN 29 mg/dL (7-18); CALCIUM 8.6 MG/DL (8.5-10.1); CARBON DIOXIDE 40 MMOL/L (21-32); CHLORIDE 103 MMOL/L (98-107); CREATININE 0.9 MG/DL (0.55-1.30); POTASSIUM 3.9 MMOL/L (3.5-5.1); SODIUM 149 MMOL/L (136-145)
[2017-05-04] MEDS: Metoprolol Succinate XL 25mg tab ORAL SCH (10:40)
--- NOTE | 2017-05-04 12:00 | Diagnostic Imaging Report ---
Indication: Dyspnea Technique: XRAY Chest 1v Comparison: 05/02/2017 Findings: Heart size and mediastinal contours are stable. There is slight improvement in interstitial opacification/edema. There is persistent patchy bilateral airspace opacities. No pneumothorax. No acute bony abnormality seen. Impression: Slight interval improvement in interstitial opacification/edema. Persistent streaky bilateral airspace opacities with slight improved aeration of the left lower lung compared to 2 days prior.
[2017-05-04 12:04] VITALS: BP 129/71
--- NOTE | 2017-05-04 13:43 | Wound Care Consultation ---
Wound Assessment Wound Assessment : Wound Number: 1 Wound Present on Admission: Yes New Wound: No Status Change of Wound: No Wound Location Body Site Modif: mid Wound Location Body Site: other - Sacrococcygeal Wound Type: pressure ulcer Denny Test: Does not Denny Pressure Ulcer Stage: Deep Tissue Injury - SDTI Wound Thickness: Full Thickness Wound Length: 4.5 Wound Width: 3.5 Wound Depth: utd Percent of Wound Black/Brown: 100 - brown Wound Drainage Amount: None Wound Drainage Odor: None/Absent Tissue Surrounding Wound: Intact Wound General Appearance: Reddened - brown Wound Comment #1 Sacrococcygeal SDTI pressure ulcer Recommendation -Local wound care per protocol -Keep clean and dry -Turn and reposition -Optimize nutrition -Offload both heels -Heel protector on both heels -Assess and f/u accordingly for any changes RIC MILLARD RN May 04, 2017 13:43
--- NOTE | 2017-05-04 14:51 | Pulmonology Progress Note ---
Assessment/Plan Problems: (1) Acute respiratory failure with hypoxemia (2) CHF exacerbation (3) Hyperglycemia due to type 2 diabetes mellitus (4) COPD exacerbation (5) ACS (acute coronary syndrome) (6) Psychosis (7) ARJUN (obstructive sleep apnea) (8) Depression (9) Morbid obesity Assessment/Plan improving titrate fio2 cxr bnp in am continue diuretics check bun/creatinine dvt prohylaxis Subjective ROS Limited/Unobtainable: No Constitutional: Reports: no symptoms HEENT: Repors: no symptoms Cardiovascular: Reports: no symptoms Genitourinary: Reports: no symptoms Neurologic: Reports: no symptoms Allergies: Coded Allergies: ASPIRIN (Verified Allergy, Unknown, 12/30/15) CIPROFLOXACIN (Verified Allergy, Unknown, 12/30/15) PENICILLINS (Verified Allergy, Unknown, 12/30/15) Objective Last 24 Hour Vital Signs Date Time Temp Pulse Resp B/P (MAP) Pulse Ox O2 Delivery O2 Flow Rate FiO2 05/04/17 12:04 97.5 105 20 129/71 98 Nasal Cannula 05/04/17 11:48 102 05/04/17 10:40 102 121/74 05/04/17 09:55 102 05/04/17 08:00 97.2 102 20 121/74 98 Nasal Cannula 05/04/17 04:32 96.8 78 20 119/68 98 Nasal Cannula 05/04/17 04:00 97 05/04/17 00:39 97.5 84 20 120/74 Nasal Cannula 05/04/17 00:00 119 05/03/17 20:58 97.2 97 20 153/72 Nasal Cannula 05/03/17 20:00 88 05/03/17 16:24 84 05/03/17 16:23 97.0 80 22 141/75 95 Nasal Cannula 4.0 05/03/17 15:38 98.2 80 21 144/60 94 Nasal Cannula 4.0 Intake and Output 05/03/17 05/04/17 19:00 07:00 Output Total 1200 ml 1000 ml Balance -1200 ml -1000 ml Output Urine Total 1200 ml 1000 ml # Bowel Movements 1 General Appearance: WD/WN HEENT: normocephalic Respiratory/Chest: chest wall non-tender, lungs clear Breasts: no masses Cardiovascular: normal peripheral pulses Abdomen: normal bowel sounds, soft, non tender, no organomegaly Genitourinary: normal external genitalia Skin: no lesions 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 Microbiology Date/Time Source Procedure Growth Status 05/02/17 21:39 Blood Blood Culture - Preliminary NO GROWTH AFTER 24 HOURS Resulted 05/02/17 21:29 Blood Blood Culture - Preliminary NO GROWTH AFTER 24 HOURS Resulted 05/02/17 21:29 Nasal Nares Influenza Types A,B Antigen (JAZMINE) - Final Complete 05/02/17 22:25 Urine,Clean Catch Urine Culture - Preliminary Gram Negative Bacillus 1 Resulted Laboratory Tests 05/04/17 08:11: White Blood Count 10.2, Red Blood Count 5.25, Hemoglobin 13.1, Hematocrit 44.9, Mean Corpuscular Volume 86, Mean Corpuscular Hemoglobin 25.0L, Mean Corpuscular Hemoglobin Concent 29.2L, Red Cell Distribution Width 15.3H, Platelet Count 237 , Mean Platelet Volume 9.3, Neutrophils (%) (Auto) 81.5H, Lymphocytes (%) (Auto ) 9.0L, Monocytes (%) (Auto) 8.3, Eosinophils (%) (Auto) 0.5, Basophils (%) ( Auto) 0.7, Sodium Level 149H, Potassium Level 3.9, Chloride Level 103, Carbon Dioxide Level 40H, Anion Gap 4L, Blood Urea Nitrogen 29H, Creatinine 0.9, Estimat Glomerular Filtration Rate , Glucose Level 172#H, Calcium Level 8.6, Total Bilirubin 0.4, Aspartate Amino Transf (AST/SGOT) 23, Alanine Aminotransferase (ALT/SGPT) 23, Alkaline Phosphatase 136H, Troponin I 0.043, Pro -B-Type Natriuretic Peptide 1725H, Total Protein 7.6, Albumin 1.9L, Globulin 5.7 , Albumin/Globulin Ratio 0.3L Current Medications Medications (Trade) Dose Ordered Sig/Marah Route PRN Reason Start Time Stop Time Status Last Admin Dose Admin Acetaminophen (Tylenol) 650 mg Q4H PRN ORAL Fever 05/03/17 00:45 06/02/17 00:44 Albuterol/ Ipratropium (Albuterol/ Ipratropium) 3 ml Q4H PRN HHN Shortness of Breath 05/03/17 00:45 05/08/17 00:44 Dextrose (Dextrose 50%) STAT PRN IV Hypoglycemia 05/03/17 00:45 06/02/17 00:44 Donepezil HCl (Aricept) 10 mg DAILY ORAL 05/03/17 09:00 06/02/17 08:59 05/04/17 08:11 Escitalopram Oxalate (Lexapro) 10 mg DAILY ORAL 05/03/17 09:00 06/02/17 08:59 05/04/17 08:11 Furosemide (Lasix) 40 mg EVERY 8 HOURS IV 05/03/17 06:00 06/02/17 05:59 05/04/17 13:48 Heparin Sodium (Porcine) (Heparin 5000 units/ml) 5,000 units EVERY 12 HOURS SUBQ 05/03/17 09:00 06/02/17 08:59 05/04/17 08:14 Insulin Aspart (NovoLOG) BEFORE MEALS AND HS SUBQ 05/03/17 07:30 06/02/17 07:29 05/04/17 11:48 Lorazepam (Ativan) 1 mg Q6H PRN ORAL Agitation 05/03/17 21:45 05/10/17 21:44 Memantine (Namenda) 10 mg DAILY ORAL 05/03/17 09:00 06/02/17 08:59 05/04/17 08:11 Metoprolol Succinate (Toprol XL) 25 mg DAILY ORAL 05/04/17 11:00 06/03/17 10:59 05/04/17 10:40 Ondansetron HCl (Zofran) 4 mg Q6H PRN IVP Nausea & Vomiting 05/03/17 00:45 06/02/17 00:44 Polyethylene Glycol (Miralax) 17 gm DAILYPRN PRN ORAL Constipation 05/03/17 00:45 06/02/17 00:44 Potassium Chloride (K-Dur) 20 meq DAILY ORAL 05/04/17 11:00 06/03/17 10:59 05/04/17 10:39 Sitagliptin Phosphate (Januvia) 100 mg ACBREAKFAST ORAL 05/03/17 11:30 06/02/17 11:29 05/04/17 06:51 Temazepam (Restoril) 15 mg HSPRN PRN ORAL Insomnia 05/03/17 00:45 05/10/17 00:44 YEIMY SORENSEN May 04, 2017 14:51
[2017-05-04 15:26] VITALS: BP 110/79
[2017-05-04 20:27] VITALS: BP 138/77
--- NOTE | 2017-05-04 20:36 | Cardiology Progress Note ---
Assessment/Plan Assessment/Plan 1. Hypoxemia. 2. Morbid obesity. 3. Psychoses, history of schizophrenia. 4. Systemic hypertension. 5. Diabetes mellitus with poor control. 6. probable diastolic failure cxr showed impormvene fo edema trop min better but nwo in [id number] norla range dejnies any cp tele neg echo noted tech limited due to pt lack of cooperation pt is mroe awake today duplex neg repeat ekg adn trop diureitc Subjective Cardiovascular: Denies: chest pain Respiratory: Denies: shortness of breath Gastrointestinal/Abdominal: Denies: abdominal pain Genitourinary: Denies: burning Objective Last 24 Hour Vital Signs Date Time Temp Pulse Resp B/P (MAP) Pulse Ox O2 Delivery O2 Flow Rate FiO2 05/04/17 20:27 98.0 92 20 138/77 95 05/04/17 15:26 97.9 102 20 110/79 93 Nasal Cannula 3.0 05/04/17 15:12 108 05/04/17 12:04 97.5 105 20 129/71 98 Nasal Cannula 05/04/17 11:48 102 05/04/17 10:40 102 121/74 05/04/17 09:55 102 05/04/17 08:00 97.2 102 20 121/74 98 Nasal Cannula 05/04/17 04:32 96.8 78 20 119/68 98 Nasal Cannula 05/04/17 04:00 97 05/04/17 00:39 97.5 84 20 120/74 Nasal Cannula 05/04/17 00:00 119 05/03/17 20:58 97.2 97 20 153/72 Nasal Cannula General Appearance: no apparent distress, alert Cardiovascular: normal rate, regular rhythm Respiratory/Chest: crackles/rales Abdomen: normal bowel sounds, non tender, soft Extremities: no swelling Intake and Output 05/03/17 05/04/17 19:00 07:00 Output Total 1200 ml 1000 ml Balance -1200 ml -1000 ml Output Urine Total 1200 ml 1000 ml # Bowel Movements 1 Laboratory Tests Test 05/04/17 08:11 White Blood Count 10.2 K/UL (4.8-10.8) Red Blood Count 5.25 M/UL (4.20-5.40) Hemoglobin 13.1 G/DL (12.0-16.0) Hematocrit 44.9 % (37.0-47.0) Mean Corpuscular Volume 86 FL (80-99) Mean Corpuscular Hemoglobin 25.0 PG (27.0-31.0) L Mean Corpuscular Hemoglobin Concent 29.2 G/DL (32.0-36.0) L Red Cell Distribution Width 15.3 % (11.6-14.8) H Platelet Count 237 K/UL (150-450) Mean Platelet Volume 9.3 FL (6.5-10.1) Neutrophils (%) (Auto) 81.5 % (45.0-75.0) H Lymphocytes (%) (Auto) 9.0 % (20.0-45.0) L Monocytes (%) (Auto) 8.3 % (1.0-10.0) Eosinophils (%) (Auto) 0.5 % (0.0-3.0) Basophils (%) (Auto) 0.7 % (0.0-2.0) Sodium Level 149 MMOL/L (136-145) H Potassium Level 3.9 MMOL/L (3.5-5.1) Chloride Level 103 MMOL/L (98-107) Carbon Dioxide Level 40 MMOL/L (21-32) H Anion Gap 4 mmol/L (5-15) L Blood Urea Nitrogen 29 mg/dL (7-18) H Creatinine 0.9 MG/DL (0.55-1.30) Estimat Glomerular Filtration Rate mL/min (>60) Glucose Level 172 MG/DL (74-106) #H Calcium Level 8.6 MG/DL (8.5-10.1) Total Bilirubin 0.4 MG/DL (0.2-1.0) Aspartate Amino Transf (AST/SGOT) 23 U/L (15-37) Alanine Aminotransferase (ALT/SGPT) 23 U/L (12-78) Alkaline Phosphatase 136 U/L (46-116) H Troponin I 0.043 ng/mL (0.000-0.056) Pro-B-Type Natriuretic Peptide 1725 pg/mL (0-125) H Total Protein 7.6 G/DL (6.4-8.2) Albumin 1.9 G/DL (3.4-5.0) L Globulin 5.7 g/dL Albumin/Globulin Ratio 0.3 (1.0-2.7) L Microbiology Date/Time Source Procedure Growth Status 05/02/17 21:39 Blood Blood Culture - Preliminary NO GROWTH AFTER 24 HOURS Resulted 05/02/17 21:29 Blood Blood Culture - Preliminary NO GROWTH AFTER 24 HOURS Resulted 05/02/17 21:29 Nasal Nares Influenza Types A,B Antigen (JAZMINE) - Final Complete 05/02/17 22:25 Urine,Clean Catch Urine Culture - Preliminary Gram Negative Bacillus 1 Resulted SOCORRO MINAYA May 04, 2017 20:36
[2017-05-04] MEDS ORDERED: Metoprolol 5mg/5ml Inj IVP ONE (22:45)
[2017-05-05] VITALS: BP 136/71
[2017-05-05] MEDS: NovoLOG Insulin Flexpen SUBQ SCH ×4 (06:25→20:24)
[2017-05-05 07:36] VITALS: BP 139/89
[2017-05-05] MEDS: Donepezil 10mg tab ORAL SCH (08:04)
[2017-05-05] MEDS: Metoprolol Succinate XL 25mg tab ORAL SCH (08:04)
[2017-05-05] MEDS: Memantine 10mg tab ORAL SCH (08:04)
[2017-05-05] MEDS: Heparin 5000 units/ml inj SUBQ SCH ×2 (08:10→20:24)
[2017-05-05 11:35] LABS: BASOPHILS % (AUTO) 0.7 % (0.0-2.0); EOSINOPHILS % (AUTO) 2.7 % (0.0-3.0); HEMOGLOBIN 13.5 G/DL (12.0-16.0); LYMPHOCYTES % (AUTO) 13.7 % (20.0-45.0); MEAN CORPUSCULAR VOLUME 85 FL (80-99); MONOCYTES % (AUTO) 7.3 % (1.0-10.0); NEUTROPHILS % (AUTO) 75.7 % (45.0-75.0); PLATELET COUNT 235 K/UL (150-450); RED BLOOD COUNT 5.29 M/UL (4.20-5.40); RED CELL DISTRIBUTION WIDTH 15.4 % (11.6-14.8); WHITE BLOOD COUNT 10.9 K/UL (4.8-10.8)
[2017-05-05 12:00] VITALS: BP 130/64
--- NOTE | 2017-05-05 12:23 | Diagnostic Imaging Report ---
Indication: Dyspnea Comparison: 05/04/2017 A single view chest radiograph was obtained. Findings: There is enlargement of the cardiac silhouette with pulmonary vascular redistribution and prominence, hazy vessel margins and the suggestion of interstitial edema consistent with CHF. Superimposed alveolar disease in the perihilar regions could represent pneumonia. The findings are unchanged. IMPRESSION: Evidence of CHF/interstitial edema without change from the prior day. Superimposed pneumonia not excluded
[2017-05-05 12:26] LABS: ALANINE AMINOTRANSFERASE 19 U/L (12-78); ALBUMIN 1.9 G/DL (3.4-5.0); ALBUMIN/GLOBULIN RATIO 0.4 (1.0-2.7); ALKALINE PHOSPHATASE 121 U/L (46-116); ANION GAP 4 mmol/L (5-15); ASPARTATE AMINO TRANSFERASE 26 U/L (15-37); BILIRUBIN,TOTAL 0.4 MG/DL (0.2-1.0); BLOOD UREA NITROGEN 40 mg/dL (7-18); CALCIUM 8.4 MG/DL (8.5-10.1); CARBON DIOXIDE 39 MMOL/L (21-32); CHLORIDE 101 MMOL/L (98-107); POTASSIUM 4.2 MMOL/L (3.5-5.1); SODIUM 144 MMOL/L (136-145)
[2017-05-05 16:28] VITALS: BP 144/81
--- NOTE | 2017-05-05 16:28 | Pulmonology Progress Note ---
Assessment/Plan Problems: (1) Acute respiratory failure with hypoxemia (2) CHF exacerbation (3) Hyperglycemia due to type 2 diabetes mellitus (4) COPD exacerbation (5) ACS (acute coronary syndrome) (6) Psychosis (7) ARJUN (obstructive sleep apnea) (8) Depression (9) Morbid obesity Assessment/Plan improving titrate fio2 cxr bnp in am continue diuretics check bun/creatinine dvt prohylaxis stop lasix watch bun/creatinine for now Subjective ROS Limited/Unobtainable: No Interval Events: feeling better Allergies: Coded Allergies: ASPIRIN (Verified Allergy, Unknown, 12/30/15) CIPROFLOXACIN (Verified Allergy, Unknown, 12/30/15) PENICILLINS (Verified Allergy, Unknown, 12/30/15) Objective Last 24 Hour Vital Signs Date Time Temp Pulse Resp B/P (MAP) Pulse Ox O2 Delivery O2 Flow Rate FiO2 05/05/17 12:00 97.8 102 20 130/64 96 Room Air 05/05/17 11:56 102 05/05/17 08:04 106 139/89 05/05/17 07:36 97.9 106 18 139/89 95 Room Air 05/05/17 07:25 90 05/05/17 03:52 98 05/05/17 00:13 96 05/05/17 00:00 97.9 106 20 136/71 95 Nasal Cannula 05/04/17 23:30 91 138/72 05/04/17 22:00 95 Nasal Cannula 3.0 32 05/04/17 22:00 Nasal Cannula 3.0 32 05/04/17 20:27 98.0 92 20 138/77 95 05/04/17 19:14 92 Intake and Output 05/04/17 05/05/17 19:00 07:00 Intake Total 360 ml Output Total 900 ml 400 ml Balance -540 ml -400 ml Intake Oral 360 ml Output Urine Total 900 ml 400 ml General Appearance: WD/WN HEENT: normocephalic, anicteric Respiratory/Chest: chest wall non-tender, lungs clear Breasts: no masses Cardiovascular: normal peripheral pulses Abdomen: soft, non tender Genitourinary: normal external genitalia Extremities: no clubbing Microbiology Date/Time Source Procedure Growth Status 05/02/17 21:39 Blood Blood Culture - Preliminary NO GROWTH AFTER 48 HOURS Resulted 05/02/17 21:29 Blood Blood Culture - Preliminary NO GROWTH AFTER 48 HOURS Resulted 05/02/17 22:40 Nasal Nares MRSA Culture - Final NO METHICILLIN RESISTANT STAPH AUREUS... Complete 05/02/17 21:29 Nasal Nares Influenza Types A,B Antigen (JAZMINE) - Final Complete 05/02/17 22:25 Urine,Clean Catch Urine Culture - Final Escherichia Coli Complete 05/02/17 22:40 Rectum VRE Culture - Final NO VANCOMYCIN RESISTANT ENTEROCOCCUS ... Complete Laboratory Tests 05/05/17 10:30: White Blood Count 10.9H, Red Blood Count 5.29, Hemoglobin 13.5, Hematocrit 45.0 , Mean Corpuscular Volume 85, Mean Corpuscular Hemoglobin 25.5L, Mean Corpuscular Hemoglobin Concent 30.0L, Red Cell Distribution Width 15.4H, Platelet Count 235, Mean Platelet Volume 8.5, Neutrophils (%) (Auto) 75.7H, Lymphocytes (%) (Auto) 13.7L, Monocytes (%) (Auto) 7.3, Eosinophils (%) (Auto) 2.7, Basophils (%) (Auto) 0.7, Sodium Level 144, Potassium Level 4.2, Chloride Level 101, Carbon Dioxide Level 39H, Anion Gap 4L, Blood Urea Nitrogen 40H, Creatinine 1.0, Estimat Glomerular Filtration Rate , Glucose Level 204H, Calcium Level 8.4L, Total Bilirubin 0.4, Aspartate Amino Transf (AST/SGOT) 26, Alanine Aminotransferase (ALT/SGPT) 19, Alkaline Phosphatase 121H, Troponin I 0.051, Pro-B-Type Natriuretic Peptide 1702H, Total Protein 7.3, Albumin 1.9L, Globulin 5.4, Albumin/Globulin Ratio 0.4L Current Medications Medications (Trade) Dose Ordered Sig/Marah Route PRN Reason Start Time Stop Time Status Last Admin Dose Admin Acetaminophen (Tylenol) 650 mg Q4H PRN ORAL Fever 05/03/17 00:45 06/02/17 00:44 Albuterol/ Ipratropium (Albuterol/ Ipratropium) 3 ml Q4H PRN HHN Shortness of Breath 05/03/17 00:45 05/08/17 00:44 Dextrose (Dextrose 50%) STAT PRN IV Hypoglycemia 05/03/17 00:45 06/02/17 00:44 Donepezil HCl (Aricept) 10 mg DAILY ORAL 1/9/18 09:00 06/02/17 08:59 05/05/17 08:04 Escitalopram Oxalate (Lexapro) 10 mg DAILY ORAL 05/03/17 09:00 06/02/17 08:59 05/05/17 08:04 Furosemide (Lasix) 40 mg EVERY 8 HOURS IV 05/03/17 06:00 06/02/17 05:59 05/05/17 13:47 Heparin Sodium (Porcine) (Heparin 5000 units/ml) 5,000 units EVERY 12 HOURS SUBQ 05/03/17 09:00 06/02/17 08:59 05/05/17 08:10 Insulin Aspart (NovoLOG) BEFORE MEALS AND HS SUBQ 05/03/17 07:30 06/02/17 07:29 05/05/17 16:18 Lorazepam (Ativan) 1 mg Q6H PRN ORAL Agitation 05/03/17 21:45 05/10/17 21:44 Memantine (Namenda) 10 mg DAILY ORAL 05/03/17 09:00 06/02/17 08:59 05/05/17 08:04 Metoprolol Succinate (Toprol XL) 25 mg DAILY ORAL 05/04/17 11:00 06/03/17 10:59 05/05/17 08:04 Ondansetron HCl (Zofran) 4 mg Q6H PRN IVP Nausea & Vomiting 05/03/17 00:45 06/02/17 00:44 Polyethylene Glycol (Miralax) 17 gm DAILYPRN PRN ORAL Constipation 05/03/17 00:45 06/02/17 00:44 Potassium Chloride (K-Dur) 20 meq DAILY ORAL 05/04/17 11:00 06/03/17 10:59 05/05/17 08:04 Sitagliptin Phosphate (Januvia) 100 mg ACBREAKFAST ORAL 05/03/17 11:30 06/02/17 11:29 05/05/17 06:25 Temazepam (Restoril) 15 mg HSPRN PRN ORAL Insomnia 05/03/17 00:45 05/10/17 00:44 YEIMY SORENSEN May 05, 2017 16:28
--- NOTE | 2017-05-05 21:20 | Cardiology Progress Note ---
Assessment/Plan Assessment/Plan 1. Hypoxemia. 2. Morbid obesity. 3. Psychoses, history of schizophrenia. 4. Systemic hypertension. 5. Diabetes mellitus with poor control. 6. probable diastolic failure 7. shrot non sustaine afib blutter denies any cp tele neg echo noted tech limited due to pt lack of cooperation duplex neg repeat ekg adn trop dennyitc had afib episode last nite dc beta agonist inhaler bb pbserve for afib recurrence Subjective Cardiovascular: Reports: chest pain, lightheadedness Respiratory: Reports: shortness of breath Gastrointestinal/Abdominal: Reports: abdominal pain Genitourinary: Reports: burning Objective Last 24 Hour Vital Signs Date Time Temp Pulse Resp B/P (MAP) Pulse Ox O2 Delivery O2 Flow Rate FiO2 05/05/17 17:36 96 Room Air 21 05/05/17 17:36 Room Air 05/05/17 16:28 97.8 99 18 144/81 96 Room Air 05/05/17 15:23 98 05/05/17 12:00 97.8 102 20 130/64 96 Room Air 05/05/17 11:56 102 05/05/17 08:04 106 139/89 05/05/17 07:36 97.9 106 18 139/89 95 Room Air 05/05/17 07:25 90 05/05/17 03:52 98 05/05/17 00:13 96 05/05/17 00:00 97.9 106 20 136/71 95 Nasal Cannula 05/04/17 23:30 91 138/72 05/04/17 22:00 95 Nasal Cannula 3.0 32 05/04/17 22:00 Nasal Cannula 3.0 32 General Appearance: no apparent distress, obese Neck: supple Cardiovascular: normal rate, regular rhythm Respiratory/Chest: crackles/rales Abdomen: normal bowel sounds, non tender, soft Extremities: trace edema Intake and Output 05/04/17 05/05/17 19:00 07:00 Intake Total 360 ml Output Total 900 ml 400 ml Balance -540 ml -400 ml Intake Oral 360 ml Output Urine Total 900 ml 400 ml Laboratory Tests Test 05/05/17 10:30 White Blood Count 10.9 K/UL (4.8-10.8) H Red Blood Count 5.29 M/UL (4.20-5.40) Hemoglobin 13.5 G/DL (12.0-16.0) Hematocrit 45.0 % (37.0-47.0) Mean Corpuscular Volume 85 FL (80-99) Mean Corpuscular Hemoglobin 25.5 PG (27.0-31.0) L Mean Corpuscular Hemoglobin Concent 30.0 G/DL (32.0-36.0) L Red Cell Distribution Width 15.4 % (11.6-14.8) H Platelet Count 235 K/UL (150-450) Mean Platelet Volume 8.5 FL (6.5-10.1) Neutrophils (%) (Auto) 75.7 % (45.0-75.0) H Lymphocytes (%) (Auto) 13.7 % (20.0-45.0) L Monocytes (%) (Auto) 7.3 % (1.0-10.0) Eosinophils (%) (Auto) 2.7 % (0.0-3.0) Basophils (%) (Auto) 0.7 % (0.0-2.0) Sodium Level 144 MMOL/L (136-145) Potassium Level 4.2 MMOL/L (3.5-5.1) Chloride Level 101 MMOL/L (98-107) Carbon Dioxide Level 39 MMOL/L (21-32) H Anion Gap 4 mmol/L (5-15) L Blood Urea Nitrogen 40 mg/dL (7-18) H Creatinine 1.0 MG/DL (0.55-1.30) Estimat Glomerular Filtration Rate mL/min (>60) Glucose Level 204 MG/DL (74-106) H Calcium Level 8.4 MG/DL (8.5-10.1) L Total Bilirubin 0.4 MG/DL (0.2-1.0) Aspartate Amino Transf (AST/SGOT) 26 U/L (15-37) Alanine Aminotransferase (ALT/SGPT) 19 U/L (12-78) Alkaline Phosphatase 121 U/L (46-116) H Troponin I 0.051 ng/mL (0.000-0.056) Pro-B-Type Natriuretic Peptide 1702 pg/mL (0-125) H Total Protein 7.3 G/DL (6.4-8.2) Albumin 1.9 G/DL (3.4-5.0) L Globulin 5.4 g/dL Albumin/Globulin Ratio 0.4 (1.0-2.7) L Microbiology Date/Time Source Procedure Growth Status 05/02/17 21:39 Blood Blood Culture - Preliminary NO GROWTH AFTER 48 HOURS Resulted 05/02/17 21:29 Blood Blood Culture - Preliminary NO GROWTH AFTER 48 HOURS Resulted 05/02/17 22:40 Nasal Nares MRSA Culture - Final NO METHICILLIN RESISTANT STAPH AUREUS... Complete 05/02/17 21:29 Nasal Nares Influenza Types A,B Antigen (JAZMINE) - Final Complete 05/02/17 22:25 Urine,Clean Catch Urine Culture - Final Escherichia Coli Complete 05/02/17 22:40 Rectum VRE Culture - Final NO VANCOMYCIN RESISTANT ENTEROCOCCUS ... Complete SOCORRO MINAYA May 05, 2017 21:20
[2017-05-06] MEDS: LORazepam 1mg tab ORAL PRN ×2 (04:40→06:07)
[2017-05-06] MEDS: NovoLOG Insulin Flexpen SUBQ SCH ×4 (06:11→21:25)
[2017-05-06 06:12] LABS: BASOPHILS % (AUTO) 0.4 % (0.0-2.0); EOSINOPHILS % (AUTO) 3.4 % (0.0-3.0); HEMATOCRIT 43.7 % (37.0-47.0); HEMOGLOBIN 13.7 G/DL (12.0-16.0); LYMPHOCYTES % (AUTO) 12.5 % (20.0-45.0); MEAN CORPUSCULAR VOLUME 85 FL (80-99); MONOCYTES % (AUTO) 6.9 % (1.0-10.0); NEUTROPHILS % (AUTO) 76.8 % (45.0-75.0); PLATELET COUNT 215 K/UL (150-450); RED BLOOD COUNT 5.16 M/UL (4.20-5.40); RED CELL DISTRIBUTION WIDTH 15.3 % (11.6-14.8)
[2017-05-06 06:40] LABS: ALANINE AMINOTRANSFERASE 14 U/L (12-78); ALBUMIN 1.9 G/DL (3.4-5.0); ALBUMIN/GLOBULIN RATIO 0.3 (1.0-2.7); ALKALINE PHOSPHATASE 114 U/L (46-116); ANION GAP 0 mmol/L (5-15); ASPARTATE AMINO TRANSFERASE 24 U/L (15-37); BILIRUBIN,TOTAL 0.5 MG/DL (0.2-1.0); BLOOD UREA NITROGEN 35 mg/dL (7-18); CALCIUM 8.5 MG/DL (8.5-10.1); CARBON DIOXIDE 40 MMOL/L (21-32); CHLORIDE 101 MMOL/L (98-107); POTASSIUM 3.7 MMOL/L (3.5-5.1); SODIUM 143 MMOL/L (136-145)
[2017-05-06] MEDS: Memantine 10mg tab ORAL SCH (09:52)
[2017-05-06] MEDS: Donepezil 10mg tab ORAL SCH (09:54)
[2017-05-06] MEDS: Metoprolol Succinate XL 25mg tab ORAL SCH (09:55)
[2017-05-06] MEDS: Heparin 5000 units/ml inj SUBQ SCH ×2 (09:57→20:34)
[2017-05-06 12:00] VITALS: BP 142/75
--- NOTE | 2017-05-06 15:49 | Pulmonology Progress Note ---
Assessment/Plan Problems: (1) Acute respiratory failure with hypoxemia (2) CHF exacerbation (3) Hyperglycemia due to type 2 diabetes mellitus (4) COPD exacerbation (5) ACS (acute coronary syndrome) (6) Psychosis (7) ARJUN (obstructive sleep apnea) (8) Depression (9) Morbid obesity Assessment/Plan improving titrate fio2 cxr bnp checked continue diuretics check bun/creatinine dvt prohylaxis watch bun/creatinine for now, down to 35 still tachycardic of 100 f/u cardiology recommendations Subjective Constitutional: Reports: no symptoms HEENT: Repors: no symptoms Allergies: Coded Allergies: ASPIRIN (Verified Allergy, Unknown, 12/30/15) CIPROFLOXACIN (Verified Allergy, Unknown, 12/30/15) PENICILLINS (Verified Allergy, Unknown, 12/30/15) Objective Last 24 Hour Vital Signs Date Time Temp Pulse Resp B/P (MAP) Pulse Ox O2 Delivery O2 Flow Rate FiO2 05/06/17 09:55 96 141/85 05/06/17 08:20 Nasal Cannula 2.0 28 05/06/17 08:20 95 Nasal Cannula 2.0 28 05/06/17 04:00 97 05/06/17 00:00 88 05/05/17 20:00 99 05/05/17 17:36 96 Room Air 21 05/05/17 17:36 Room Air 05/05/17 16:28 97.8 99 18 144/81 96 Room Air Intake and Output 05/05/17 05/06/17 19:00 07:00 Intake Total 300 ml Balance 300 ml Intake Oral 300 ml # Voids 2 2 General Appearance: WD/WN HEENT: normocephalic, atraumatic Abdomen: normal bowel sounds, soft, non tender Genitourinary: normal external genitalia Extremities: no cyanosis Skin: no lesions Neurologic/Psychiatric: 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 II-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 grossly normal Laboratory Tests 05/06/17 05:50: White Blood Count 14.0H, Red Blood Count 5.16, Hemoglobin 13.7, Hematocrit 43.7 , Mean Corpuscular Volume 85, Mean Corpuscular Hemoglobin 26.6L, Mean Corpuscular Hemoglobin Concent 31.4L, Red Cell Distribution Width 15.3H, Platelet Count 215, Mean Platelet Volume 8.5, Neutrophils (%) (Auto) 76.8H, Lymphocytes (%) (Auto) 12.5L, Monocytes (%) (Auto) 6.9, Eosinophils (%) (Auto) 3.4H, Basophils (%) (Auto) 0.4, Sodium Level 143, Potassium Level 3.7, Chloride Level 101, Carbon Dioxide Level 40H, Anion Gap 0L, Blood Urea Nitrogen 35H, Creatinine 1.0, Estimat Glomerular Filtration Rate , Glucose Level 192H, Calcium Level 8.5, Total Bilirubin 0.5, Aspartate Amino Transf (AST/SGOT) 24, Alanine Aminotransferase (ALT/SGPT) 14, Alkaline Phosphatase 114, Pro-B-Type Natriuretic Peptide 1375H, Total Protein 7.9, Albumin 1.9L, Globulin 6.0, Albumin/Globulin Ratio 0.3L Current Medications Medications (Trade) Dose Ordered Sig/Marah Route PRN Reason Start Time Stop Time Status Last Admin Dose Admin Acetaminophen (Tylenol) 650 mg Q4H PRN ORAL Fever 05/03/17 00:45 06/02/17 00:44 Dextrose (Dextrose 50%) STAT PRN IV Hypoglycemia 05/03/17 00:45 06/02/17 00:44 Donepezil HCl (Aricept) 10 mg DAILY ORAL 05/03/17 09:00 06/02/17 08:59 05/06/17 09:54 Escitalopram Oxalate (Lexapro) 10 mg DAILY ORAL 05/03/17 09:00 06/02/17 08:59 05/06/17 09:54 Heparin Sodium (Porcine) (Heparin 5000 units/ml) 5,000 units EVERY 12 HOURS SUBQ 05/03/17 09:00 06/02/17 08:59 05/06/17 09:57 Insulin Aspart (NovoLOG) BEFORE MEALS AND HS SUBQ 05/03/17 07:30 06/02/17 07:29 05/06/17 11:50 Lorazepam (Ativan) 1 mg Q6H PRN ORAL Agitation 05/03/17 21:45 05/10/17 21:44 05/06/17 06:07 Memantine (Namenda) 10 mg DAILY ORAL 05/03/17 09:00 06/02/17 08:59 05/06/17 09:52 Metoprolol Succinate (Toprol XL) 25 mg DAILY ORAL 05/04/17 11:00 06/03/17 10:59 05/06/17 09:55 Ondansetron HCl (Zofran) 4 mg Q6H PRN IVP Nausea & Vomiting 05/03/17 00:45 06/02/17 00:44 Polyethylene Glycol (Miralax) 17 gm DAILYPRN PRN ORAL Constipation 05/03/17 00:45 06/02/17 00:44 Potassium Chloride (K-Dur) 20 meq DAILY ORAL 05/04/17 11:00 06/03/17 10:59 05/06/17 09:54 Sitagliptin Phosphate (Januvia) 100 mg ACBREAKFAST ORAL 05/03/17 11:30 06/02/17 11:29 05/06/17 06:07 Temazepam (Restoril) 15 mg HSPRN PRN ORAL Insomnia 05/03/17 00:45 05/10/17 00:44 05/06/17 04:39 YEIMY SORENSEN May 06, 2017 15:49
--- NOTE | 2017-05-06 16:43 | Cardiology Progress Note ---
Assessment/Plan Assessment/Plan 1. Hypoxemia. 2. Morbid obesity. 3. Psychoses, history of schizophrenia. 4. Systemic hypertension. 5. Diabetes mellitus with poor control. 6. probable diastolic failure 7. short non sustain afib / flutter denies any cp tele neg echo noted tech limited due to pt lack of cooperation duplex neg repeat ekg adn trop diuretic tele sinus off beta agonist inhaler bb observe for afib recurrence wbc increasing home soon Subjective Cardiovascular: Denies: chest pain, irregular heart rate, lightheadedness, palpitations Respiratory: Denies: shortness of breath Gastrointestinal/Abdominal: Denies: abdominal pain Genitourinary: Denies: burning Objective Last 24 Hour Vital Signs Date Time Temp Pulse Resp B/P (MAP) Pulse Ox O2 Delivery O2 Flow Rate FiO2 05/06/17 12:00 98.0 90 22 142/75 92 Room Air 05/06/17 12:00 81 05/06/17 09:55 96 141/85 05/06/17 08:20 Nasal Cannula 2.0 28 05/06/17 08:20 95 Nasal Cannula 2.0 28 05/06/17 08:00 83 05/06/17 04:00 97 05/06/17 00:00 88 05/05/17 20:00 99 05/05/17 17:36 96 Room Air 21 05/05/17 17:36 Room Air Neck: supple Cardiovascular: normal rate, regular rhythm Respiratory/Chest: normal breath sounds, crackles/rales Abdomen: non tender, soft Extremities: trace edema Intake and Output 05/05/17 05/06/17 19:00 07:00 Intake Total 300 ml Balance 300 ml Intake Oral 300 ml # Voids 2 2 Laboratory Tests Test 05/06/17 05:50 White Blood Count 14.0 K/UL (4.8-10.8) H Red Blood Count 5.16 M/UL (4.20-5.40) Hemoglobin 13.7 G/DL (12.0-16.0) Hematocrit 43.7 % (37.0-47.0) Mean Corpuscular Volume 85 FL (80-99) Mean Corpuscular Hemoglobin 26.6 PG (27.0-31.0) L Mean Corpuscular Hemoglobin Concent 31.4 G/DL (32.0-36.0) L Red Cell Distribution Width 15.3 % (11.6-14.8) H Platelet Count 215 K/UL (150-450) Mean Platelet Volume 8.5 FL (6.5-10.1) Neutrophils (%) (Auto) 76.8 % (45.0-75.0) H Lymphocytes (%) (Auto) 12.5 % (20.0-45.0) L Monocytes (%) (Auto) 6.9 % (1.0-10.0) Eosinophils (%) (Auto) 3.4 % (0.0-3.0) H Basophils (%) (Auto) 0.4 % (0.0-2.0) Sodium Level 143 MMOL/L (136-145) Potassium Level 3.7 MMOL/L (3.5-5.1) Chloride Level 101 MMOL/L (98-107) Carbon Dioxide Level 40 MMOL/L (21-32) H Anion Gap 0 mmol/L (5-15) L Blood Urea Nitrogen 35 mg/dL (7-18) H Creatinine 1.0 MG/DL (0.55-1.30) Estimat Glomerular Filtration Rate mL/min (>60) Glucose Level 192 MG/DL (74-106) H Calcium Level 8.5 MG/DL (8.5-10.1) Total Bilirubin 0.5 MG/DL (0.2-1.0) Aspartate Amino Transf (AST/SGOT) 24 U/L (15-37) Alanine Aminotransferase (ALT/SGPT) 14 U/L (12-78) Alkaline Phosphatase 114 U/L (46-116) Pro-B-Type Natriuretic Peptide 1375 pg/mL (0-125) H Total Protein 7.9 G/DL (6.4-8.2) Albumin 1.9 G/DL (3.4-5.0) L Globulin 6.0 g/dL Albumin/Globulin Ratio 0.3 (1.0-2.7) L SOCORRO MINAYA May 06, 2017 16:43
--- NOTE | 2017-05-06 17:55 | Diagnostic Imaging Report ---
Indication: Dyspnea Technique: XRAY Chest 1v Comparison: 05/05/2017 Findings: Heart size and mediastinal contours are stable. There is persistent interstitial opacification/edema and patchy bilateral airspace opacities. No pneumothorax. No acute osseous normality seen. Impression: No significant interval change in appearance of heart and lungs compared to one day prior.
[2017-05-06 20:00] VITALS: BP 133/63
[2017-05-07] VITALS: BP_SYST 142; BP_SYST 147; BP_DIAS 74
[2017-05-07] MEDS: LORazepam 1mg tab ORAL PRN ×2 (01:17→15:14)
[2017-05-07 04:00] VITALS: BP 135/62
[2017-05-07] MEDS: NovoLOG Insulin Flexpen SUBQ SCH ×4 (06:19→21:00)
[2017-05-07] MEDS: Heparin 5000 units/ml inj SUBQ SCH ×2 (09:00→21:00)
--- NOTE | 2017-05-07 09:05 | Pulmonology Progress Note ---
Assessment/Plan Problems: (1) PNA (pneumonia) (2) Acute respiratory failure with hypoxemia (3) CHF exacerbation (4) Hyperglycemia due to type 2 diabetes mellitus (5) COPD exacerbation (6) ACS (acute coronary syndrome) (7) Psychosis (8) ARJUN (obstructive sleep apnea) (9) Depression (10) Morbid obesity Assessment/Plan improving titrate fio2 cxr showing areas of consolidation continue diuretics check bun/creatinine dvt prohylaxis watch bun/creatinine for now, down to 35 still sinus f/u cardiology recommendations ID evaluation, PNC allergy I added aztreonam, vanco and Tamiflu Subjective Interval Events: looks comfortable Allergies: Coded Allergies: ASPIRIN (Verified Allergy, Unknown, 12/30/15) CIPROFLOXACIN (Verified Allergy, Unknown, 12/30/15) PENICILLINS (Verified Allergy, Unknown, 12/30/15) Objective Last 24 Hour Vital Signs Date Time Temp Pulse Resp B/P (MAP) Pulse Ox O2 Delivery O2 Flow Rate FiO2 05/07/17 04:00 99 Nasal Cannula 2.0 05/07/17 04:00 97.9 84 20 135/62 99 Nasal Cannula 05/07/17 04:00 81 05/07/17 00:00 96 Nasal Cannula 2.0 05/07/17 00:00 98.1 88 20 142/74 93 Nasal Cannula 05/07/17 00:00 92 05/06/17 20:00 98.1 104 24 133/63 93 Nasal Cannula 05/06/17 20:00 110 05/06/17 20:00 97 Nasal Cannula 2.0 05/06/17 16:00 82 05/06/17 12:00 98.0 90 22 142/75 92 Room Air 05/06/17 12:00 81 05/06/17 09:55 96 141/85 Intake and Output 05/06/17 05/07/17 19:00 07:00 Intake Total 550 ml Balance 550 ml Intake Oral 550 ml # Voids 2 Objective HEENT: normocephalic Respiratory/Chest: chest wall non-tender, lungs clear, normal breath sounds Breasts: no masses Cardiovascular: normal peripheral pulses, normal rate Abdomen: normal bowel sounds, no organomegaly Extremities: no cyanosis, no clubbing Skin: no rash Current Medications Medications (Trade) Dose Ordered Sig/Marah Route PRN Reason Start Time Stop Time Status Last Admin Dose Admin Acetaminophen (Tylenol) 650 mg Q4H PRN ORAL Fever 05/03/17 00:45 06/02/17 00:44 Dextrose (Dextrose 50%) STAT PRN IV Hypoglycemia 05/03/17 00:45 06/02/17 00:44 Donepezil HCl (Aricept) 10 mg DAILY ORAL 05/03/17 09:00 06/02/17 08:59 05/06/17 09:54 Escitalopram Oxalate (Lexapro) 10 mg DAILY ORAL 05/03/17 09:00 06/02/17 08:59 05/06/17 09:54 Heparin Sodium (Porcine) (Heparin 5000 units/ml) 5,000 units EVERY 12 HOURS SUBQ 05/03/17 09:00 06/02/17 08:59 05/06/17 20:34 Insulin Aspart (NovoLOG) BEFORE MEALS AND HS SUBQ 05/03/17 07:30 06/02/17 07:29 05/07/17 06:19 Lorazepam (Ativan) 1 mg Q6H PRN ORAL Agitation 05/03/17 21:45 05/10/17 21:44 05/07/17 01:17 Memantine (Namenda) 10 mg DAILY ORAL 05/03/17 09:00 06/02/17 08:59 05/06/17 09:52 Metoprolol Succinate (Toprol XL) 25 mg DAILY ORAL 05/04/17 11:00 06/03/17 10:59 05/06/17 09:55 Ondansetron HCl (Zofran) 4 mg Q6H PRN IVP Nausea & Vomiting 05/03/17 00:45 06/02/17 00:44 Polyethylene Glycol (Miralax) 17 gm DAILYPRN PRN ORAL Constipation 05/03/17 00:45 06/02/17 00:44 Potassium Chloride (K-Dur) 20 meq DAILY ORAL 05/04/17 11:00 06/03/17 10:59 05/06/17 09:54 Sitagliptin Phosphate (Januvia) 100 mg ACBREAKFAST ORAL 05/03/17 11:30 06/02/17 11:29 05/07/17 06:17 Temazepam (Restoril) 15 mg HSPRN PRN ORAL Insomnia 05/03/17 00:45 05/10/17 00:44 05/06/17 04:39 YEIMY SORENSEN May 07, 2017 09:05
[2017-05-07] MEDS: Metoprolol Succinate XL 25mg tab ORAL SCH (09:13)
[2017-05-07] MEDS: Donepezil 10mg tab ORAL SCH (09:13)
[2017-05-07] MEDS: Memantine 10mg tab ORAL SCH (09:13)
[2017-05-07] MEDS: Aztreonam Inj 1 GM in D5W 55 ML IVPB SCH ×2 (10:44→18:35)
[2017-05-07] MEDS: Vancomycin 1500mg IVPB SCH (11:53)
[2017-05-07 12:00] VITALS: BP 118/62
--- NOTE | 2017-05-07 15:26 | Cardiology Report ---
APPROVED REPORT EKG Measurement Heart [id number] WA P-17 [id number] Atrial fibrillation with rapid ventricular response Abnormal ECG
[2017-05-07] MEDS ORDERED: Tubing IV Secondary IV ONE ×2 (16:31→17:48)
[2017-05-07] MEDS ORDERED: NS 500ML ONE (16:31)
[2017-05-07] MEDS: Azithromycin 500 MG in D5W 275 ML IV SCH (17:21)
[2017-05-07] MEDS ORDERED: NS 275ml ONE (17:48)
[2017-05-07 20:00] VITALS: BP 119/61
--- NOTE | 2017-05-07 20:31 | Cardiology Progress Note ---
Assessment/Plan Assessment/Plan elevated WBC most likely suggests of ongoing infection Subjective Subjective the patient is resting she responds to questions appropirately and says that she is fine Objective Last 24 Hour Vital Signs Date Time Temp Pulse Resp B/P (MAP) Pulse Ox O2 Delivery O2 Flow Rate FiO2 05/07/17 16:00 78 05/07/17 12:00 100 05/07/17 12:00 97.5 100 20 118/62 99 Nasal Cannula 2.0 05/07/17 09:13 81 147/76 05/07/17 08:00 95 05/07/17 04:00 99 Nasal Cannula 2.0 05/07/17 04:00 97.9 84 20 135/62 99 Nasal Cannula 05/07/17 04:00 81 05/07/17 00:00 96 Nasal Cannula 2.0 05/07/17 00:00 98.1 88 20 142/74 93 Nasal Cannula 05/07/17 00:00 92 General Appearance: mild distress EENT: PERRL/EOMI Neck: non-tender, no JVD Rhythm: ST Cardiovascular: tachycardia Respiratory/Chest: crackles/rales Abdomen: distended Extremities: moderate edema 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
--- NOTE | 2017-05-07 22:50 | Consultation ---
History of Present Illness General Date patient seen: May 04, 2017 Chief Complaint: Dyspnea/Respdistress Present Illness HPI the patient is an 81 yo female withe hx of dementia and depression. She also has hx of psychosis. the pt is being treated by myself at [facility]. the pt is not able to provide any meaningful history. She has multiple medical problems. It appears that she was transferred from a convalescent facility because of shortness of breath. The patient is confused and has history of Alzheimer's. the pt is depressed and has anxiety. Allergies: Coded Allergies: ASPIRIN (Verified Allergy, Unknown, 12/30/15) CIPROFLOXACIN (Verified Allergy, Unknown, 12/30/15) PENICILLINS (Verified Allergy, Unknown, 12/30/15) Medication History Scheduled Atorvastatin Calcium* (Atorvastatin Calcium*), 10 MG ORAL BEDTIME, (Reported) Azithromycin (Azithromycin), 500 MG IVPB Q24H, (Reported) Donepezil Hcl* (Donepezil Hcl*), 10 MG ORAL DAILY, (Reported) Donepezil Hcl* (Aricept*), 10 MG ORAL HS, (Reported) Escitalopram Oxalate* (Lexapro*), 10 MG ORAL DAILY, (Reported) Escitalopram Oxalate* (Lexapro*), 10 MG ORAL DAILY, (Reported) Furosemide* (Lasix*), 20 MG ORAL TWICE A DAY, (Reported) Furosemide* (Lasix*), 20 MG ORAL BID, (Reported) Insulin Aspart (Novolog), 12 UNIT SQ BID, (Reported) Insulin Aspart (Novolog), 8 UNIT SQ BEFORE BREAKFAST, (Reported) Insulin Aspart* (Novolog*), 0 SUBQ BEFORE MEALS AND HS, (Reported) Insulin Detemir (Levemir Flexpen), 60 SUBQ EVERY 12 HOURS, (Reported) Insulin Detemir (Levemir Flexpen), 60 SUBQ EVERY 12 HOURS, (Reported) Insulin Glargine (Lantus), 55 SUBQ EVERY 12 HOURS, (Reported) Ipratropium/Albuterol Sulfate (DuoNeb 0.5-3(2.5)mg/3ml), 3 ML HHN Q6HR, ( Reported) Lactulose (Lactulose*), 30 ML ORAL DAILY, (Reported) Lorazepam* (Lorazepam*), 1 MG ORAL EVERY 6 HOURS, (Reported) Memantine Hcl* (Namenda*), 10 MG ORAL DAILY, (Reported) Memantine Hcl* (Namenda*), 10 MG ORAL DAILY, (Reported) Metoprolol Tartrate* (Metoprolol Tartrate*), 25 MG ORAL DAILY, (Reported) Metoprolol Tartrate* (Metoprolol Tartrate*), 25 MG ORAL DAILY, (Reported) Potassium Chloride (Potassium Chloride), 20 MEQ ORAL DAILY, (Reported) Sitagliptin* (Januvia*), 100 MG ORAL DAILY, (Reported) Scheduled PRN Acetaminophen (Acetaminophen), 650 MG ORAL Q6H PRN for Mild Pain/Temp > 100.5, ( Reported) Ipratropium/Albuterol Sulfate (DuoNeb 0.5-3(2.5)mg/3ml), 3 ML HHN EVERY 6 HOURS PRN for Shortness of Breath, (Reported) Lactulose (Lactulose*), 30 ML ORAL DAILY PRN for Constipation, (Reported) Lorazepam* (Lorazepam*), 1 MG ORAL EVERY 6 HOURS PRN for For Anxiety, (Reported) Miscellaneous Medications Dextromethorphan Hbr/Quinidine (Nuedexta 20-10 Mg Capsule), 1 EACH PO, (Reported ) Insulin Glargine,Hum.rec.anlog (Fernando Simpson), 300 UNIT SQ, (Reported) Lactulose (Lactulose*), 30 ML ORAL, (Reported) Patient History Limited by: medical condition History Provided By: Patient, Medical Record, PMD Healthcare decision maker Resuscitation status Full Code Advanced Directive on File Past Medical/Surgical History Past Medical/Surgical History: (1) SOB (shortness of breath) on exertion (2) Proteinuria (3) UTI (urinary tract infection) (4) CHF exacerbation (5) Acute respiratory failure with hypoxemia (6) Hyperglycemia due to type 2 diabetes mellitus (7) COPD exacerbation (8) Morbid obesity (9) Depression (10) Psychosis (11) ARJUN (obstructive sleep apnea) (12) ACS (acute coronary syndrome) (13) PNA (pneumonia) Review of Systems Psychiatric: Reports: prior hx, anxiety, depressed feelings, emotional problems Physical Exam General Appearance: alert, confused Neurologic: alert, responsive, disoriented, depressed affect Last 24 Hour Vital Signs Date Time Temp Pulse Resp B/P (MAP) Pulse Ox O2 Delivery O2 Flow Rate FiO2 05/07/17 20:00 97.0 91 20 119/61 90 05/07/17 16:00 78 05/07/17 12:00 100 05/07/17 12:00 97.5 100 20 118/62 99 Nasal Cannula 2.0 05/07/17 09:13 81 147/76 05/07/17 08:00 95 05/07/17 04:00 99 Nasal Cannula 2.0 05/07/17 04:00 97.9 84 20 135/62 99 Nasal Cannula 05/07/17 04:00 81 05/07/17 00:00 96 Nasal Cannula 2.0 05/07/17 00:00 98.1 88 20 142/74 93 Nasal Cannula 05/07/17 00:00 92 Intake and Output 05/06/17 05/07/17 19:00 07:00 Intake Total 550 ml Balance 550 ml Intake Oral 550 ml # Voids 2 Microbiology Date/Time Source Procedure Growth Status 05/07/17 14:25 Nasopharynx Influenza Types A,B Antigen (JAZMINE) - Final Complete Height (Feet): 5 Height (Inches): 6.00 Weight (Pounds): 260 Medications Current Medications Medications (Trade) Dose Ordered Sig/Marah Route PRN Reason Start Time Stop Time Status Last Admin Dose Admin Acetaminophen (Tylenol) 650 mg Q4H PRN ORAL Fever 05/03/17 00:45 06/02/17 00:44 Azithromycin 500 mg/Dextrose 275 ml @ 275 mls/hr Q24HRS IV 05/07/17 15:00 05/13/17 15:59 05/07/17 17:21 Aztreonam 1 gm/ Dextrose 55 ml @ 110 mls/hr Q8HR@0200,1000,1800 IVPB 05/07/17 10:00 05/14/17 09:59 05/07/17 18:35 Dextrose (Dextrose 50%) STAT PRN IV Hypoglycemia 05/03/17 00:45 06/02/17 00:44 Donepezil HCl (Aricept) 10 mg DAILY ORAL 05/03/17 09:00 06/02/17 08:59 05/07/17 09:13 Escitalopram Oxalate (Lexapro) 10 mg DAILY ORAL 05/03/17 09:00 2/8/18 08:59 05/07/17 09:12 Heparin Sodium (Porcine) (Heparin 5000 units/ml) 5,000 units EVERY 12 HOURS SUBQ 05/03/17 09:00 06/02/17 08:59 05/06/17 20:34 Insulin Aspart (NovoLOG) BEFORE MEALS AND HS SUBQ 05/03/17 07:30 06/02/17 07:29 05/07/17 17:22 Lorazepam (Ativan) 1 mg Q6H PRN ORAL Agitation 05/03/17 21:45 05/10/17 21:44 05/07/17 15:14 Memantine (Namenda) 10 mg DAILY ORAL 05/03/17 09:00 06/02/17 08:59 05/07/17 09:13 Metoprolol Succinate (Toprol XL) 25 mg DAILY ORAL 05/04/17 11:00 06/03/17 10:59 05/07/17 09:13 Ondansetron HCl (Zofran) 4 mg Q6H PRN IVP Nausea & Vomiting 05/03/17 00:45 06/02/17 00:44 Oseltamivir Phosphate (Tamiflu) 30 mg TWICE A DAY ORAL 05/07/17 22:00 05/12/17 21:59 Polyethylene Glycol (Miralax) 17 gm DAILYPRN PRN ORAL Constipation 05/03/17 00:45 06/02/17 00:44 Potassium Chloride (K-Dur) 20 meq DAILY ORAL 05/04/17 11:00 06/03/17 10:59 05/07/17 09:12 Sitagliptin Phosphate (Januvia) 100 mg ACBREAKFAST ORAL 05/03/17 11:30 06/02/17 11:29 05/07/17 06:17 Temazepam (Restoril) 15 mg HSPRN PRN ORAL Insomnia 05/03/17 00:45 05/10/17 00:44 05/06/17 04:39 Vancomycin HCl (Vanco rx to dose) 1 ea DAILY PRN MISC Per rx protocol 05/07/17 09:15 06/06/17 09:14 Vancomycin HCl/ Dextrose 250 ml @ 125 mls/hr Q24H IVPB 05/07/17 11:00 05/12/17 10:59 05/07/17 11:53 Assessment/Plan Status: stable Assessment/Plan mdd dementia anxiety -dc lexapro -prozac 20mg Khalif Stoner M.D. May 07, 2017 22:50
--- NOTE | 2017-05-07 22:52 | General Progress Note ---
Assessment/Plan Status: stable Assessment/Plan mdd cont prozac cont lisseth dc aricept Subjective Date patient seen: May 05, 2017 Neurologic/Psychiatric: Reports: anxiety, depressed, emotional problems Allergies: Coded Allergies: ASPIRIN (Verified Allergy, Unknown, 12/30/15) CIPROFLOXACIN (Verified Allergy, Unknown, 12/30/15) PENICILLINS (Verified Allergy, Unknown, 12/30/15) Objective Last 24 Hour Vital Signs Date Time Temp Pulse Resp B/P (MAP) Pulse Ox O2 Delivery O2 Flow Rate FiO2 05/07/17 20:00 97.0 91 20 119/61 90 05/07/17 16:00 78 05/07/17 12:00 100 05/07/17 12:00 97.5 100 20 118/62 99 Nasal Cannula 2.0 05/07/17 09:13 81 147/76 05/07/17 08:00 95 05/07/17 04:00 99 Nasal Cannula 2.0 05/07/17 04:00 97.9 84 20 135/62 99 Nasal Cannula 05/07/17 04:00 81 05/07/17 00:00 96 Nasal Cannula 2.0 05/07/17 00:00 98.1 88 20 142/74 93 Nasal Cannula 05/07/17 00:00 92 Intake and Output 05/06/17 05/07/17 19:00 07:00 Intake Total 550 ml Balance 550 ml Intake Oral 550 ml # Voids 2 Height (Feet): 5 Height (Inches): 6.00 Weight (Pounds): 260 General Appearance: no apparent distress, alert, confused Neurologic: alert, responsive, depressed affect Khalif Talley M.D. May 07, 2017 22:51
--- NOTE | 2017-05-07 22:53 | Geriatric Progress Note ---
Assessment/Plan Discussed with: patient Subjective Interval Events 05/06/17 Mood/Memory: Reports: anxiety, depressed feelings, emotional problems Sleep: Reports: sleeps well Geriatric Geriatric Last 24 Hour Vital Signs Date Time Temp Pulse Resp B/P (MAP) Pulse Ox O2 Delivery O2 Flow Rate FiO2 05/07/17 20:00 97.0 91 20 119/61 90 05/07/17 16:00 78 05/07/17 12:00 100 05/07/17 12:00 97.5 100 20 118/62 99 Nasal Cannula 2.0 05/07/17 09:13 81 147/76 05/07/17 08:00 95 05/07/17 04:00 99 Nasal Cannula 2.0 05/07/17 04:00 97.9 84 20 135/62 99 Nasal Cannula 05/07/17 04:00 81 05/07/17 00:00 96 Nasal Cannula 2.0 05/07/17 00:00 98.1 88 20 142/74 93 Nasal Cannula 05/07/17 00:00 92 Intake and Output 05/06/17 05/07/17 19:00 07:00 Intake Total 550 ml Balance 550 ml Intake Oral 550 ml # Voids 2 Current Medications Medications (Trade) Dose Ordered Sig/Marah Route PRN Reason Start Time Stop Time Status Last Admin Dose Admin Acetaminophen (Tylenol) 650 mg Q4H PRN ORAL Fever 05/03/17 00:45 06/02/17 00:44 Azithromycin 500 mg/Dextrose 275 ml @ 275 mls/hr Q24HRS IV 05/07/17 15:00 05/13/17 15:59 05/07/17 17:21 Aztreonam 1 gm/ Dextrose 55 ml @ 110 mls/hr Q8HR@0200,1000,1800 IVPB 05/07/17 10:00 05/14/17 09:59 05/07/17 18:35 Dextrose (Dextrose 50%) STAT PRN IV Hypoglycemia 05/03/17 00:45 06/02/17 00:44 Donepezil HCl (Aricept) 10 mg DAILY ORAL 05/03/17 09:00 06/02/17 08:59 05/07/17 09:13 Escitalopram Oxalate (Lexapro) 10 mg DAILY ORAL 05/03/17 09:00 06/02/17 08:59 05/07/17 09:12 Heparin Sodium (Porcine) (Heparin 5000 units/ml) 5,000 units EVERY 12 HOURS SUBQ 05/03/17 09:00 06/02/17 08:59 05/06/17 20:34 Insulin Aspart (NovoLOG) BEFORE MEALS AND HS SUBQ 05/03/17 07:30 06/02/17 07:29 05/07/17 17:22 Lorazepam (Ativan) 1 mg Q6H PRN ORAL Agitation 05/03/17 21:45 05/10/17 21:44 05/07/17 15:14 Memantine (Namenda) 10 mg DAILY ORAL 05/03/17 09:00 06/02/17 08:59 05/07/17 09:13 Metoprolol Succinate (Toprol XL) 25 mg DAILY ORAL 05/04/17 11:00 06/03/17 10:59 05/07/17 09:13 Ondansetron HCl (Zofran) 4 mg Q6H PRN IVP Nausea & Vomiting 05/03/17 00:45 06/02/17 00:44 Oseltamivir Phosphate (Tamiflu) 30 mg TWICE A DAY ORAL 05/07/17 22:00 05/12/17 21:59 Polyethylene Glycol (Miralax) 17 gm DAILYPRN PRN ORAL Constipation 05/03/17 00:45 06/02/17 00:44 Potassium Chloride (K-Dur) 20 meq DAILY ORAL 05/04/17 11:00 06/03/17 10:59 05/07/17 09:12 Sitagliptin Phosphate (Januvia) 100 mg ACBREAKFAST ORAL 05/03/17 11:30 06/02/17 11:29 05/07/17 06:17 Temazepam (Restoril) 15 mg HSPRN PRN ORAL Insomnia 05/03/17 00:45 05/10/17 00:44 05/06/17 04:39 Vancomycin HCl (Vanco rx to dose) 1 ea DAILY PRN MISC Per rx protocol 05/07/17 09:15 06/06/17 09:14 Vancomycin HCl/ Dextrose 250 ml @ 125 mls/hr Q24H IVPB 05/07/17 11:00 05/12/17 10:59 05/07/17 11:53 Height (Feet): 5 Height (Inches): 6.00 Weight (Pounds): 260 General Appearance: well appearing, well nourished, no apparent distress, alert , appears stated age Psychiatric Behavior: cooperative Orientation: person Affect: Khalif Rhodes M.D. May 07, 2017 22:53
[2017-05-08] VITALS (7 sets, daily range): BP systolic 118–149; BP diastolic 55–71
--- NOTE | 2017-05-08 00:15 | Consultation ---
DATE OF CONSULTATION: 05/07/2017 INFECTIOUS DISEASES CONSULTATION CONSULTING PHYSICIAN: Hardy Lyons M.D. REFERRING PHYSICIAN: Brice John M.D. REASON FOR CONSULTATION: Evaluation of patient for pneumonia, sepsis, antibiotic management. HISTORY OF PRESENT ILLNESS: The patient is an 81-year-old female with multiple medical problems, who has been admitted to this medical center for shortness of breath and pneumonia. The patient was found to have leukocytosis. Infectious Diseases consultation has been requested for further evaluation of the patient's antibiotic management. PAST MEDICAL HISTORY: 1. History of dementia. 2. Obesity. 3. Hypertension. 4. COPD. 5. GERD. 6. Diabetes. 7. Depression/anxiety. MEDICATIONS: Vancomycin, Tamiflu, and aztreonam. ALLERGIES: Penicillin and Cipro. FAMILY HISTORY: Noncontributory. REVIEW OF SYSTEMS: Limited, much of the information that I was able to get is as mentioned above. PHYSICAL EXAMINATION: VITAL SIGNS: Temperature 97.5 degrees, blood pressure 118/62, pulse 86, and respiratory rate 18. HEENT: No pale conjunctivae. No icterus. NECK: No lymphadenopathy. CHEST: Clear. HEART: S1 and S2. ABDOMEN: Soft and obese. EXTREMITIES: No cyanosis. NEUROLOGIC: Awake. LABORATORY AND DIAGNOSTIC DATA: White blood cells 14, hemoglobin 13, and platelets 215. UA unremarkable. BUN 35 and creatinine 1. Liver function tests are unremarkable. Chest x-ray showed interstitial opacity/edema and patchy bilateral opacity. PLAN: 1. We will continue the patient on vancomycin, aztreonam, and Tamiflu for now, add Zithromax. 2. Monitor CBC. 3. Monitor BMP. 4. Sputum culture. 5. Blood culture. 6. Rapid influenza test. 7. Based on the patient's clinical course and laboratories, we will do further recommendation. Thank you, Dr. John, for allowing me to participate in the care of this patient. I will follow the patient with you during this hospitalization. Hardy Lyons M.D. DR: JOSEFINA JOB#: [id number] CC:
[2017-05-08] MEDS: Aztreonam Inj 1 GM in D5W 55 ML IVPB SCH ×3 (02:00→17:43)
[2017-05-08] MEDS: NovoLOG Insulin Flexpen SUBQ SCH ×4 (06:30→20:02)
[2017-05-08 07:48] LABS: BASOPHILS % (AUTO) 0.5 % (0.0-2.0); EOSINOPHILS % (AUTO) 4.8 % (0.0-3.0); HEMATOCRIT 44.5 % (37.0-47.0); LYMPHOCYTES % (AUTO) 14.6 % (20.0-45.0); MEAN CORPUSCULAR VOLUME 85 FL (80-99); MONOCYTES % (AUTO) 7.1 % (1.0-10.0); NEUTROPHILS % (AUTO) 73.1 % (45.0-75.0); PLATELET COUNT 191 K/UL (150-450); RED BLOOD COUNT 5.24 M/UL (4.20-5.40); RED CELL DISTRIBUTION WIDTH 15.9 % (11.6-14.8); WHITE BLOOD COUNT 13.7 K/UL (4.8-10.8)
[2017-05-08 08:16] LABS: ANION GAP 2 mmol/L (5-15); BLOOD UREA NITROGEN 25 mg/dL (7-18); CALCIUM 8.8 MG/DL (8.5-10.1); CARBON DIOXIDE 36 MMOL/L (21-32); CHLORIDE 103 MMOL/L (98-107); CREATININE 0.9 MG/DL (0.55-1.30); POTASSIUM 4.1 MMOL/L (3.5-5.1); SODIUM 141 MMOL/L (136-145)
[2017-05-08] MEDS: Donepezil 10mg tab ORAL SCH ×2 (09:32→09:39)
[2017-05-08] MEDS: Metoprolol Succinate XL 25mg tab ORAL SCH (09:34)
[2017-05-08] MEDS: Memantine 10mg tab ORAL SCH (09:40)
[2017-05-08] MEDS: Heparin 5000 units/ml inj SUBQ SCH ×2 (09:42→20:03)
--- NOTE | 2017-05-08 09:57 | Pulmonology Progress Note ---
Assessment/Plan Problems: (1) PNA (pneumonia) (2) Acute respiratory failure with hypoxemia (3) CHF exacerbation (4) Hyperglycemia due to type 2 diabetes mellitus (5) COPD exacerbation (6) ACS (acute coronary syndrome) (7) Psychosis (8) ARJUN (obstructive sleep apnea) (9) Depression (10) Morbid obesity Assessment/Plan improving titrate fio2 cxr showing areas of consolidation, cxr 05/07 New RLL atelectasis and infiltrate continue diuretics check bun/creatinine dvt prohylaxis still sinus f/u cardiology recommendations ID evaluation, PNC allergy I added aztreonam, vanco and Tamiflu med/surg Subjective ROS Limited/Unobtainable: No Constitutional: Reports: no symptoms HEENT: Repors: no symptoms Cardiovascular: Reports: no symptoms Allergies: Coded Allergies: ASPIRIN (Verified Allergy, Unknown, 12/30/15) CIPROFLOXACIN (Verified Allergy, Unknown, 12/30/15) PENICILLINS (Verified Allergy, Unknown, 12/30/15) Objective Last 24 Hour Vital Signs Date Time Temp Pulse Resp B/P (MAP) Pulse Ox O2 Delivery O2 Flow Rate FiO2 05/08/17 09:34 85 125/55 05/08/17 04:00 97.0 84 20 125/55 90 05/08/17 04:00 85 05/08/17 00:00 97.7 79 20 131/57 95 05/08/17 00:00 84 05/07/17 20:00 88 05/07/17 20:00 97.0 91 20 119/61 90 05/07/17 16:00 78 05/07/17 12:00 100 05/07/17 12:00 97.5 100 20 118/62 99 Nasal Cannula 2.0 Intake and Output 05/07/17 05/08/17 19:00 07:00 Intake Total 590 ml Balance 590 ml Intake Oral 480 ml IV Total 110 ml # Voids 5 2 # Bowel Movements 1 Objective HEENT: normocephalic Respiratory/Chest: chest wall non-tender, lungs clear, normal breath sounds Breasts: no masses Cardiovascular: normal peripheral pulses, normal rate Abdomen: normal bowel sounds, no organomegaly Extremities: no cyanosis, no clubbing Skin: no rash Microbiology Date/Time Source Procedure Growth Status 05/07/17 14:25 Nasopharynx Influenza Types A,B Antigen (JAZMINE) - Final Complete Laboratory Tests 05/08/17 05:05: Sodium Level 141, Potassium Level 4.1, Chloride Level 103, Carbon Dioxide Level 36H, Anion Gap 2L, Blood Urea Nitrogen 25H, Creatinine 0.9, Estimat Glomerular Filtration Rate , Glucose Level 211H, Calcium Level 8.8 05/08/17 05:10: White Blood Count 13.7H, Red Blood Count 5.24, Hemoglobin 14.0, Hematocrit 44.5 , Mean Corpuscular Volume 85, Mean Corpuscular Hemoglobin 26.6L, Mean Corpuscular Hemoglobin Concent 31.3L, Red Cell Distribution Width 15.9H, Platelet Count 191, Mean Platelet Volume 8.8, Neutrophils (%) (Auto) 73.1, Lymphocytes (%) (Auto) 14.6L, Monocytes (%) (Auto) 7.1, Eosinophils (%) (Auto) 4.8H, Basophils (%) (Auto) 0.5 Current Medications Medications (Trade) Dose Ordered Sig/Marah Route PRN Reason Start Time Stop Time Status Last Admin Dose Admin Acetaminophen (Tylenol) 650 mg Q4H PRN ORAL Fever 05/03/17 00:45 06/02/17 00:44 Azithromycin 500 mg/Dextrose 275 ml @ 275 mls/hr Q24HRS IV 05/07/17 15:00 05/13/17 15:59 05/07/17 17:21 Aztreonam 1 gm/ Dextrose 55 ml @ 110 mls/hr Q8HR@0200,1000,1800 IVPB 05/07/17 10:00 05/14/17 09:59 05/08/17 09:40 Dextrose (Dextrose 50%) STAT PRN IV Hypoglycemia 05/03/17 00:45 06/02/17 00:44 Donepezil HCl (Aricept) 10 mg DAILY ORAL 05/03/17 09:00 06/02/17 08:59 05/08/17 09:39 Escitalopram Oxalate (Lexapro) 10 mg DAILY ORAL 05/03/17 09:00 06/02/17 08:59 05/08/17 09:39 Fluoxetine HCl (PROzac) 20 mg DAILY ORAL 05/08/17 09:00 06/07/17 08:59 05/08/17 09:42 Heparin Sodium (Porcine) (Heparin 5000 units/ml) 5,000 units EVERY 12 HOURS SUBQ 05/03/17 09:00 06/02/17 08:59 05/08/17 09:42 Insulin Aspart (NovoLOG) BEFORE MEALS AND HS SUBQ 05/03/17 07:30 06/02/17 07:29 05/08/17 06:30 Lorazepam (Ativan) 1 mg Q6H PRN ORAL Agitation 05/03/17 21:45 05/10/17 21:44 05/07/17 15:14 Memantine (Namenda) 10 mg DAILY ORAL 05/03/17 09:00 06/02/17 08:59 05/08/17 09:40 Metoprolol Succinate (Toprol XL) 25 mg DAILY ORAL 05/04/17 11:00 06/03/17 10:59 05/08/17 09:34 Ondansetron HCl (Zofran) 4 mg Q6H PRN IVP Nausea & Vomiting 05/03/17 00:45 06/02/17 00:44 Oseltamivir Phosphate (Tamiflu) 30 mg TWICE A DAY ORAL 05/07/17 22:00 05/12/17 21:59 05/08/17 09:39 Polyethylene Glycol (Miralax) 17 gm DAILYPRN PRN ORAL Constipation 05/03/17 00:45 06/02/17 00:44 Potassium Chloride (K-Dur) 20 meq DAILY ORAL 05/04/17 11:00 06/03/17 10:59 05/08/17 09:33 Sitagliptin Phosphate (Januvia) 100 mg ACBREAKFAST ORAL 05/03/17 11:30 06/02/17 11:29 05/08/17 06:30 Temazepam (Restoril) 15 mg HSPRN PRN ORAL Insomnia 05/03/17 00:45 05/10/17 00:44 05/06/17 04:39 Vancomycin HCl (Vanco rx to dose) 1 ea DAILY PRN MISC Per rx protocol 05/07/17 09:15 06/06/17 09:14 Vancomycin HCl/ Dextrose 250 ml @ 125 mls/hr Q24H IVPB 05/07/17 11:00 05/12/17 10:59 05/07/17 11:53 YEIMY SORENSEN May 08, 2017 09:57
[2017-05-08] MEDS: Vancomycin 1500mg IVPB SCH (11:02)
[2017-05-08] MEDS: Azithromycin 500 MG in D5W 275 ML IV SCH (15:29)
[2017-05-08] MEDS ORDERED: Tubing IV Secondary IV ONE (15:52)
[2017-05-08] MEDS ORDERED: NS 275ml ONE (15:52)
[2017-05-09] VITALS: BP 125/56
[2017-05-09] MEDS: Aztreonam Inj 1 GM in D5W 55 ML IVPB SCH ×2 (02:01→09:14)
[2017-05-09 04:00] VITALS: BP 132/50
[2017-05-09] MEDS: NovoLOG Insulin Flexpen SUBQ SCH ×4 (05:49→21:56)
[2017-05-09 07:45] LABS: BASOPHILS % (AUTO) 0.4 % (0.0-2.0); EOSINOPHILS % (AUTO) 4.6 % (0.0-3.0); HEMATOCRIT 41.8 % (37.0-47.0); HEMOGLOBIN 12.9 G/DL (12.0-16.0); LYMPHOCYTES % (AUTO) 13.2 % (20.0-45.0); MEAN CORPUSCULAR VOLUME 84 FL (80-99); MONOCYTES % (AUTO) 6.6 % (1.0-10.0); NEUTROPHILS % (AUTO) 75.2 % (45.0-75.0); PLATELET COUNT 171 K/UL (150-450); RED BLOOD COUNT 4.98 M/UL (4.20-5.40); RED CELL DISTRIBUTION WIDTH 15.9 % (11.6-14.8); WHITE BLOOD COUNT 11.3 K/UL (4.8-10.8)
[2017-05-09 08:42] LABS: ALANINE AMINOTRANSFERASE 48 U/L (12-78); ALBUMIN 1.9 G/DL (3.4-5.0); ALBUMIN/GLOBULIN RATIO 0.3 (1.0-2.7); ALKALINE PHOSPHATASE 101 U/L (46-116); ANION GAP 3 mmol/L (5-15); ASPARTATE AMINO TRANSFERASE 43 U/L (15-37); BILIRUBIN,TOTAL 0.4 MG/DL (0.2-1.0); BLOOD UREA NITROGEN 20 mg/dL (7-18); CALCIUM 8.4 MG/DL (8.5-10.1); CARBON DIOXIDE 39 MMOL/L (21-32); CHLORIDE 102 MMOL/L (98-107); CREATININE 0.8 MG/DL (0.55-1.30); POTASSIUM 3.6 MMOL/L (3.5-5.1); SODIUM 143 MMOL/L (136-145)
[2017-05-09] MEDS: Metoprolol Succinate XL 25mg tab ORAL SCH (09:11)
[2017-05-09] MEDS: Memantine 10mg tab ORAL SCH (09:12)
[2017-05-09] MEDS: Heparin 5000 units/ml inj SUBQ SCH ×2 (09:12→21:56)
--- NOTE | 2017-05-09 09:44 | Diagnostic Imaging Report ---
Indication: Dyspnea Technique: XRAY Chest 1v Comparison: 05/06/2017 Findings: Heart size and mediastinal contours are stable. There is persistent interstitial opacification/edema and patchy bilateral airspace opacities. No pneumothorax. No acute osseous abnormality seen. Impression: No significant interval change is interstitial opacification/edema and patchy bilateral airspace opacities.
[2017-05-09] MEDS: Vancomycin 1500mg IVPB SCH (11:00)
--- NOTE | 2017-05-09 11:14 | Infectious Diseases Prog Note ---
Assessment/Plan Assessment/Plan A: UTI eColi leukocytosis improving Flu neg Dementia Obesity. Hypertension. COPD. GERD. Diabetes. Depression/anxiety PLAN: Cont on Zithromax. d# 3 ,start bactrim Dc d# 1 / 7 , DC vancomycin, aztreonam , and Tamiflu d# 3 , Monitor CBC Monitor BMP. Sputum culture. Blood culture. Subjective Allergies: Coded Allergies: ASPIRIN (Verified Allergy, Unknown, 12/30/15) CIPROFLOXACIN (Verified Allergy, Unknown, 12/30/15) PENICILLINS (Verified Allergy, Unknown, 12/30/15) Subjective Afebrile Objective Vital Signs Last 24 Hour Vital Signs Date Time Temp Pulse Resp B/P (MAP) Pulse Ox O2 Delivery O2 Flow Rate FiO2 05/09/17 09:11 94 127/71 05/09/17 04:00 97.8 88 18 132/50 92 Nasal Cannula 2.0 05/09/17 00:00 97.5 80 20 125/56 94 Nasal Cannula 2.0 05/08/17 20:00 97.7 92 18 127/70 92 Nasal Cannula 2.0 05/08/17 19:15 Nasal Cannula 2.0 28 05/08/17 19:15 96 Nasal Cannula 2.0 28 05/08/17 16:11 97.0 95 20 149/59 94 Nasal Cannula 2.0 05/08/17 14:55 98.2 94 24 122/71 93 05/08/17 12:00 97.2 87 20 121/63 95 Height (Feet): 5 Height (Inches): 6.00 Weight (Pounds): 260 HEENT: mucous membranes moist Respiratory/Chest: normal breath sounds Cardiovascular: regularly irregular Abdomen: no organomegaly Microbiology Date/Time Source Procedure Growth Status 05/07/17 14:25 Nasopharynx Influenza Types A,B Antigen (JAZMINE) - Final Complete Laboratory Tests Test 05/09/17 06:00 05/09/17 09:50 White Blood Count 11.3 K/UL (4.8-10.8) H Red Blood Count 4.98 M/UL (4.20-5.40) Hemoglobin 12.9 G/DL (12.0-16.0) Hematocrit 41.8 % (37.0-47.0) Mean Corpuscular Volume 84 FL (80-99) Mean Corpuscular Hemoglobin 25.8 PG (27.0-31.0) L Mean Corpuscular Hemoglobin Concent 30.8 G/DL (32.0-36.0) L Red Cell Distribution Width 15.9 % (11.6-14.8) H Platelet Count 171 K/UL (150-450) Mean Platelet Volume 8.2 FL (6.5-10.1) Neutrophils (%) (Auto) 75.2 % (45.0-75.0) H Lymphocytes (%) (Auto) 13.2 % (20.0-45.0) L Monocytes (%) (Auto) 6.6 % (1.0-10.0) Eosinophils (%) (Auto) 4.6 % (0.0-3.0) H Basophils (%) (Auto) 0.4 % (0.0-2.0) Sodium Level 143 MMOL/L (136-145) Potassium Level 3.6 MMOL/L (3.5-5.1) Chloride Level 102 MMOL/L (98-107) Carbon Dioxide Level 39 MMOL/L (21-32) H Anion Gap 3 mmol/L (5-15) L Blood Urea Nitrogen 20 mg/dL (7-18) H Creatinine 0.8 MG/DL (0.55-1.30) Estimat Glomerular Filtration Rate mL/min (>60) Glucose Level 201 MG/DL (74-106) H Calcium Level 8.4 MG/DL (8.5-10.1) L Total Bilirubin 0.4 MG/DL (0.2-1.0) Aspartate Amino Transf (AST/SGOT) 43 U/L (15-37) H Alanine Aminotransferase (ALT/SGPT) 48 U/L (12-78) Alkaline Phosphatase 101 U/L (46-116) Pro-B-Type Natriuretic Peptide 772 pg/mL (0-125) H Total Protein 7.6 G/DL (6.4-8.2) Albumin 1.9 G/DL (3.4-5.0) L Globulin 5.7 g/dL Albumin/Globulin Ratio 0.3 (1.0-2.7) L Vancomycin Level Trough 10.5 ug/mL (5.0-12.0) Current Medications Medications (Trade) Dose Ordered Sig/Marah Route PRN Reason Start Time Stop Time Status Last Admin Dose Admin Acetaminophen (Tylenol) 650 mg Q4H PRN ORAL Fever 05/03/17 00:45 06/02/17 00:44 Azithromycin 500 mg/Dextrose 275 ml @ 275 mls/hr Q24HRS IV 05/07/17 15:00 05/13/17 15:59 05/08/17 15:29 Aztreonam 1 gm/ Dextrose 55 ml @ 110 mls/hr Q8HR@0200,1000,1800 IVPB 05/07/17 10:00 05/14/17 09:59 05/09/17 09:14 Dextrose (Dextrose 50%) STAT PRN IV Hypoglycemia 05/03/17 00:45 06/02/17 00:44 Donepezil HCl (Aricept) 10 mg DAILY ORAL 05/03/17 09:00 06/02/17 08:59 05/08/17 09:39 Escitalopram Oxalate (Lexapro) 10 mg DAILY ORAL 05/03/17 09:00 06/02/17 08:59 05/08/17 09:39 Fluoxetine HCl (PROzac) 20 mg DAILY ORAL 05/08/17 09:00 06/07/17 08:59 05/09/17 09:12 Heparin Sodium (Porcine) (Heparin 5000 units/ml) 5,000 units EVERY 12 HOURS SUBQ 05/03/17 09:00 06/02/17 08:59 05/09/17 09:12 Insulin Aspart (NovoLOG) BEFORE MEALS AND HS SUBQ 05/03/17 07:30 06/02/17 07:29 05/09/17 05:49 Lorazepam (Ativan) 1 mg Q6H PRN ORAL Agitation 05/03/17 21:45 05/10/17 21:44 05/07/17 15:14 Memantine (Namenda) 10 mg DAILY ORAL 05/03/17 09:00 06/02/17 08:59 05/09/17 09:12 Metoprolol Succinate (Toprol XL) 25 mg DAILY ORAL 05/04/17 11:00 06/03/17 10:59 05/09/17 09:11 Ondansetron HCl (Zofran) 4 mg Q6H PRN IVP Nausea & Vomiting 05/03/17 00:45 06/02/17 00:44 Oseltamivir Phosphate (Tamiflu) 30 mg TWICE A DAY ORAL 05/07/17 22:00 05/12/17 21:59 05/09/17 09:11 Polyethylene Glycol (Miralax) 17 gm DAILYPRN PRN ORAL Constipation 05/03/17 00:45 06/02/17 00:44 Potassium Chloride (K-Dur) 20 meq DAILY ORAL 05/04/17 11:00 06/03/17 10:59 05/09/17 09:11 Sitagliptin Phosphate (Januvia) 100 mg ACBREAKFAST ORAL 05/03/17 11:30 06/02/17 11:29 05/08/17 06:30 Temazepam (Restoril) 15 mg HSPRN PRN ORAL Insomnia 05/03/17 00:45 05/10/17 00:44 05/06/17 04:39 Vancomycin HCl (Vanco rx to dose) 1 ea DAILY PRN MISC Per rx protocol 05/07/17 09:15 06/06/17 09:14 Vancomycin HCl/ Dextrose 250 ml @ 125 mls/hr Q24H IVPB 05/07/17 11:00 05/12/17 10:59 05/08/17 11:02 STAS NELSON M.D. May 09, 2017 11:14
[2017-05-09] MEDS: Azithromycin 500 MG in D5W 275 ML IV SCH ×2 (11:16→15:04)
[2017-05-09 12:00] VITALS: BP 142/72
[2017-05-09] MEDS: Bactrim-DS 1 tab ORAL SCH ×2 (12:21→18:12)
--- NOTE | 2017-05-09 12:55 | Pulmonology Progress Note ---
Assessment/Plan Problems: (1) PNA (pneumonia) (2) Acute respiratory failure with hypoxemia (3) CHF exacerbation (4) Hyperglycemia due to type 2 diabetes mellitus (5) COPD exacerbation (6) ACS (acute coronary syndrome) (7) Psychosis (8) ARJUN (obstructive sleep apnea) (9) Depression (10) Morbid obesity Assessment/Plan improving titrate fio2 bilateral edema check bun/creatinine dvt prohylaxis start lasix again still sinus f/u cardiology recommendations on bactrim med/surg Subjective ROS Limited/Unobtainable: No Interval Events: comfortable Constitutional: Reports: no symptoms HEENT: Repors: no symptoms Respiratory: Reports: no symptoms Cardiovascular: Reports: no symptoms Allergies: Coded Allergies: ASPIRIN (Verified Allergy, Unknown, 12/30/15) CIPROFLOXACIN (Verified Allergy, Unknown, 12/30/15) PENICILLINS (Verified Allergy, Unknown, 12/30/15) Objective Last 24 Hour Vital Signs Date Time Temp Pulse Resp B/P (MAP) Pulse Ox O2 Delivery O2 Flow Rate FiO2 05/09/17 12:00 97.3 90 21 142/72 91 05/09/17 09:11 94 127/71 05/09/17 04:00 97.8 88 18 132/50 92 Nasal Cannula 2.0 05/09/17 00:00 97.5 80 20 125/56 94 Nasal Cannula 2.0 05/08/17 20:00 97.7 92 18 127/70 92 Nasal Cannula 2.0 05/08/17 19:15 Nasal Cannula 2.0 28 05/08/17 19:15 96 Nasal Cannula 2.0 28 05/08/17 16:11 97.0 95 20 149/59 94 Nasal Cannula 2.0 05/08/17 14:55 98.2 94 24 122/71 93 Intake and Output 05/08/17 05/09/17 19:00 07:00 Intake Total 570 ml Balance 570 ml Intake Oral 240 ml IV Total 330 ml # Voids 2 1 Objective HEENT: normocephalic Respiratory/Chest: chest wall non-tender, lungs clear, normal breath sounds Breasts: no masses Cardiovascular: normal peripheral pulses, normal rate Abdomen: normal bowel sounds, no organomegaly Extremities: no cyanosis, no clubbing Skin: no rash Microbiology Date/Time Source Procedure Growth Status 05/07/17 14:25 Nasopharynx Influenza Types A,B Antigen (JAZMINE) - Final Complete Laboratory Tests 05/09/17 06:00: White Blood Count 11.3H, Red Blood Count 4.98, Hemoglobin 12.9, Hematocrit 41.8 , Mean Corpuscular Volume 84, Mean Corpuscular Hemoglobin 25.8L, Mean Corpuscular Hemoglobin Concent 30.8L, Red Cell Distribution Width 15.9H, Platelet Count 171, Mean Platelet Volume 8.2, Neutrophils (%) (Auto) 75.2H, Lymphocytes (%) (Auto) 13.2L, Monocytes (%) (Auto) 6.6, Eosinophils (%) (Auto) 4.6H, Basophils (%) (Auto) 0.4, Sodium Level 143, Potassium Level 3.6, Chloride Level 102, Carbon Dioxide Level 39H, Anion Gap 3L, Blood Urea Nitrogen 20H, Creatinine 0.8, Estimat Glomerular Filtration Rate , Glucose Level 201H, Calcium Level 8.4L, Total Bilirubin 0.4, Aspartate Amino Transf (AST/SGOT) 43H, Alanine Aminotransferase (ALT/SGPT) 48, Alkaline Phosphatase 101, Pro-B-Type Natriuretic Peptide 772H, Total Protein 7.6, Albumin 1.9L, Globulin 5.7, Albumin /Globulin Ratio 0.3L 05/09/17 09:50: Vancomycin Level Trough 10.5 Current Medications Medications (Trade) Dose Ordered Sig/Marah Route PRN Reason Start Time Stop Time Status Last Admin Dose Admin Acetaminophen (Tylenol) 650 mg Q4H PRN ORAL Fever 05/03/17 00:45 06/02/17 00:44 Azithromycin 500 mg/Dextrose 275 ml @ 275 mls/hr Q24HRS IV 05/07/17 15:00 05/13/17 15:59 05/08/17 15:29 Dextrose (Dextrose 50%) STAT PRN IV Hypoglycemia 05/03/17 00:45 06/02/17 00:44 Donepezil HCl (Aricept) 10 mg DAILY ORAL 05/03/17 09:00 06/02/17 08:59 05/08/17 09:39 Escitalopram Oxalate (Lexapro) 10 mg DAILY ORAL 05/03/17 09:00 06/02/17 08:59 05/08/17 09:39 Fluoxetine HCl (PROzac) 20 mg DAILY ORAL 05/08/17 09:00 06/07/17 08:59 05/09/17 09:12 Heparin Sodium (Porcine) (Heparin 5000 units/ml) 5,000 units EVERY 12 HOURS SUBQ 05/03/17 09:00 06/02/17 08:59 05/09/17 09:12 Insulin Aspart (NovoLOG) BEFORE MEALS AND HS SUBQ 05/03/17 07:30 06/02/17 07:29 05/09/17 12:32 Lorazepam (Ativan) 1 mg Q6H PRN ORAL Agitation 05/03/17 21:45 05/10/17 21:44 05/07/17 15:14 Memantine (Namenda) 10 mg DAILY ORAL 05/03/17 09:00 06/02/17 08:59 05/09/17 09:12 Metoprolol Succinate (Toprol XL) 25 mg DAILY ORAL 05/04/17 11:00 06/03/17 10:59 05/09/17 09:11 Ondansetron HCl (Zofran) 4 mg Q6H PRN IVP Nausea & Vomiting 05/03/17 00:45 06/02/17 00:44 Oseltamivir Phosphate (Tamiflu) 30 mg TWICE A DAY ORAL 05/07/17 22:00 05/12/17 21:59 05/09/17 09:11 Polyethylene Glycol (Miralax) 17 gm DAILYPRN PRN ORAL Constipation 05/03/17 00:45 06/02/17 00:44 Potassium Chloride (K-Dur) 20 meq DAILY ORAL 05/04/17 11:00 06/03/17 10:59 05/09/17 09:11 Sitagliptin Phosphate (Januvia) 100 mg ACBREAKFAST ORAL 05/03/17 11:30 06/02/17 11:29 05/08/17 06:30 Temazepam (Restoril) 15 mg HSPRN PRN ORAL Insomnia 05/03/17 00:45 05/10/17 00:44 05/06/17 04:39 Trimethoprim/ Sulfamethoxazole (Bactrim-DS) 1 ea TWICE A DAY ORAL 05/09/17 12:00 05/16/17 11:59 05/09/17 12:21 YEIMY SORENSEN May 09, 2017 12:55
[2017-05-09 16:00] VITALS: BP 130/71
[2017-05-09 19:56] VITALS: BP 121/50
[2017-05-09] MEDS ORDERED: Tubing IV Secondary IV ONE (20:44)
--- NOTE | 2017-05-09 23:40 | General Progress Note ---
Assessment/Plan Status: stable, progressing Assessment/Plan mdd cont prozac cont lisseth dc aricept Subjective Date patient seen: May 09, 2017 Neurologic/Psychiatric: Reports: anxiety, depressed, emotional problems Allergies: Coded Allergies: ASPIRIN (Verified Allergy, Unknown, 12/30/15) CIPROFLOXACIN (Verified Allergy, Unknown, 12/30/15) PENICILLINS (Verified Allergy, Unknown, 12/30/15) Objective Last 24 Hour Vital Signs Date Time Temp Pulse Resp B/P (MAP) Pulse Ox O2 Delivery O2 Flow Rate FiO2 05/09/17 19:56 97.5 77 18 121/50 92 Room Air 05/09/17 16:00 97.7 77 20 130/71 95 05/09/17 12:00 97.3 90 21 142/72 91 05/09/17 12:00 97.3 90 21 142/72 91 05/09/17 09:11 94 127/71 05/09/17 04:00 97.8 88 18 132/50 92 Nasal Cannula 2.0 05/09/17 00:00 97.5 80 20 125/56 94 Nasal Cannula 2.0 Intake and Output 05/08/17 05/09/17 19:00 07:00 Intake Total 570 ml Balance 570 ml Intake Oral 240 ml IV Total 330 ml # Voids 2 1 Laboratory Tests 05/09/17 06:00: White Blood Count 11.3H, Red Blood Count 4.98, Hemoglobin 12.9, Hematocrit 41.8 , Mean Corpuscular Volume 84, Mean Corpuscular Hemoglobin 25.8L, Mean Corpuscular Hemoglobin Concent 30.8L, Red Cell Distribution Width 15.9H, Platelet Count 171, Mean Platelet Volume 8.2, Neutrophils (%) (Auto) 75.2H, Lymphocytes (%) (Auto) 13.2L, Monocytes (%) (Auto) 6.6, Eosinophils (%) (Auto) 4.6H, Basophils (%) (Auto) 0.4, Sodium Level 143, Potassium Level 3.6, Chloride Level 102, Carbon Dioxide Level 39H, Anion Gap 3L, Blood Urea Nitrogen 20H, Creatinine 0.8, Estimat Glomerular Filtration Rate , Glucose Level 201H, Calcium Level 8.4L, Total Bilirubin 0.4, Aspartate Amino Transf (AST/SGOT) 43H, Alanine Aminotransferase (ALT/SGPT) 48, Alkaline Phosphatase 101, Pro-B-Type Natriuretic Peptide 772H, Total Protein 7.6, Albumin 1.9L, Globulin 5.7, Albumin /Globulin Ratio 0.3L 05/09/17 09:50: Vancomycin Level Trough 10.5 Height (Feet): 5 Height (Inches): 6.00 Weight (Pounds): 260 General Appearance: no apparent distress, alert Neurologic: alert, responsive, depressed affect Khalif Talley M.D. May 09, 2017 23:40
--- NOTE | 2017-05-09 23:41 | Geriatric Progress Note ---
Assessment/Plan Discussed with: patient Subjective Interval Events 05/07/17 Mood/Memory: Reports: prior hx, anxiety, depressed feelings, emotional problems Geriatric Geriatric Last 24 Hour Vital Signs Date Time Temp Pulse Resp B/P (MAP) Pulse Ox O2 Delivery O2 Flow Rate FiO2 05/09/17 19:56 97.5 77 18 121/50 92 Room Air 05/09/17 16:00 97.7 77 20 130/71 95 05/09/17 12:00 97.3 90 21 142/72 91 05/09/17 12:00 97.3 90 21 142/72 91 05/09/17 09:11 94 127/71 05/09/17 04:00 97.8 88 18 132/50 92 Nasal Cannula 2.0 05/09/17 00:00 97.5 80 20 125/56 94 Nasal Cannula 2.0 Intake and Output 05/08/17 05/09/17 19:00 07:00 Intake Total 570 ml Balance 570 ml Intake Oral 240 ml IV Total 330 ml # Voids 2 1 Laboratory Tests Test 05/09/17 06:00 05/09/17 09:50 White Blood Count 11.3 K/UL (4.8-10.8) H Red Blood Count 4.98 M/UL (4.20-5.40) Hemoglobin 12.9 G/DL (12.0-16.0) Hematocrit 41.8 % (37.0-47.0) Mean Corpuscular Volume 84 FL (80-99) Mean Corpuscular Hemoglobin 25.8 PG (27.0-31.0) L Mean Corpuscular Hemoglobin Concent 30.8 G/DL (32.0-36.0) L Red Cell Distribution Width 15.9 % (11.6-14.8) H Platelet Count 171 K/UL (150-450) Mean Platelet Volume 8.2 FL (6.5-10.1) Neutrophils (%) (Auto) 75.2 % (45.0-75.0) H Lymphocytes (%) (Auto) 13.2 % (20.0-45.0) L Monocytes (%) (Auto) 6.6 % (1.0-10.0) Eosinophils (%) (Auto) 4.6 % (0.0-3.0) H Basophils (%) (Auto) 0.4 % (0.0-2.0) Sodium Level 143 MMOL/L (136-145) Potassium Level 3.6 MMOL/L (3.5-5.1) Chloride Level 102 MMOL/L (98-107) Carbon Dioxide Level 39 MMOL/L (21-32) H Anion Gap 3 mmol/L (5-15) L Blood Urea Nitrogen 20 mg/dL (7-18) H Creatinine 0.8 MG/DL (0.55-1.30) Estimat Glomerular Filtration Rate mL/min (>60) Glucose Level 201 MG/DL (74-106) H Calcium Level 8.4 MG/DL (8.5-10.1) L Total Bilirubin 0.4 MG/DL (0.2-1.0) Aspartate Amino Transf (AST/SGOT) 43 U/L (15-37) H Alanine Aminotransferase (ALT/SGPT) 48 U/L (12-78) Alkaline Phosphatase 101 U/L (46-116) Pro-B-Type Natriuretic Peptide 772 pg/mL (0-125) H Total Protein 7.6 G/DL (6.4-8.2) Albumin 1.9 G/DL (3.4-5.0) L Globulin 5.7 g/dL Albumin/Globulin Ratio 0.3 (1.0-2.7) L Vancomycin Level Trough 10.5 ug/mL (5.0-12.0) Current Medications Medications (Trade) Dose Ordered Sig/Marah Route PRN Reason Start Time Stop Time Status Last Admin Dose Admin Acetaminophen (Tylenol) 650 mg Q4H PRN ORAL Fever 05/03/17 00:45 06/02/17 00:44 Azithromycin 500 mg/Dextrose 275 ml @ 275 mls/hr Q24HRS IV 05/07/17 15:00 05/13/17 15:59 05/09/17 15:04 Dextrose (Dextrose 50%) STAT PRN IV Hypoglycemia 05/03/17 00:45 06/02/17 00:44 Donepezil HCl (Aricept) 10 mg DAILY ORAL 05/03/17 09:00 06/02/17 08:59 05/08/17 09:39 Escitalopram Oxalate (Lexapro) 10 mg DAILY ORAL 05/03/17 09:00 06/02/17 08:59 05/08/17 09:39 Fluoxetine HCl (PROzac) 20 mg DAILY ORAL 05/08/17 09:00 06/07/17 08:59 05/09/17 09:12 Furosemide (Lasix) 20 mg EVERY 12 HOURS IV 05/09/17 21:00 06/08/17 20:59 05/09/17 21:54 Heparin Sodium (Porcine) (Heparin 5000 units/ml) 5,000 units EVERY 12 HOURS SUBQ 05/03/17 09:00 06/02/17 08:59 05/09/17 21:56 Insulin Aspart (NovoLOG) BEFORE MEALS AND HS SUBQ 05/03/17 07:30 06/02/17 07:29 05/09/17 21:56 Lorazepam (Ativan) 1 mg Q6H PRN ORAL Agitation 05/03/17 21:45 05/10/17 21:44 05/07/17 15:14 Memantine (Namenda) 10 mg DAILY ORAL 05/03/17 09:00 06/02/17 08:59 05/09/17 09:12 Metoprolol Succinate (Toprol XL) 25 mg DAILY ORAL 05/04/17 11:00 06/03/17 10:59 05/09/17 09:11 Ondansetron HCl (Zofran) 4 mg Q6H PRN IVP Nausea & Vomiting 05/03/17 00:45 06/02/17 00:44 Oseltamivir Phosphate (Tamiflu) 30 mg TWICE A DAY ORAL 05/07/17 22:00 05/12/17 21:59 05/09/17 18:11 Polyethylene Glycol (Miralax) 17 gm DAILYPRN PRN ORAL Constipation 05/03/17 00:45 06/02/17 00:44 Potassium Chloride (K-Dur) 20 meq DAILY ORAL 05/04/17 11:00 06/03/17 10:59 05/09/17 09:11 Sitagliptin Phosphate (Januvia) 100 mg ACBREAKFAST ORAL 05/03/17 11:30 06/02/17 11:29 05/08/17 06:30 Temazepam (Restoril) 15 mg HSPRN PRN ORAL Insomnia 05/03/17 00:45 05/10/17 00:44 05/09/17 21:54 Trimethoprim/ Sulfamethoxazole (Bactrim-DS) 1 ea TWICE A DAY ORAL 05/09/17 12:00 05/16/17 11:59 05/09/17 18:12 Height (Feet): 5 Height (Inches): 6.00 Weight (Pounds): 260 General Appearance: alert, appears stated age Psychiatric Orientation: person Affect: flat Insight: poor Khalif Talley M.D. May 09, 2017 23:41
[2017-05-09 23:51] VITALS: BP 149/71
[2017-05-10 04:49] VITALS: BP 88/56
[2017-05-10 05:09] VITALS: BP 124/56
[2017-05-10] MEDS: NovoLOG Insulin Flexpen SUBQ SCH ×4 (06:28→20:42)
[2017-05-10] MEDS: Donepezil 10mg tab ORAL SCH (09:13)
[2017-05-10] MEDS: Memantine 10mg tab ORAL SCH (09:13)
[2017-05-10] MEDS: Bactrim-DS 1 tab ORAL SCH ×2 (09:13→18:32)
[2017-05-10] MEDS: Metoprolol Succinate XL 25mg tab ORAL SCH (09:13)
[2017-05-10] MEDS: Heparin 5000 units/ml inj SUBQ SCH ×2 (09:16→20:41)
--- NOTE | 2017-05-10 10:46 | Wound Nurse Progress Note ---
Wound RN Progress Note Wound Consult Reassessment- noted good progress skin remains intact, no further deterioration noted. #1 Sacrococcygeal SDTI pressure ulcer- remains as reddened/brown color drying skin is intact. no change in size. Recommendation -Local wound care per protocol -Keep clean and dry -Turn and reposition -Optimize nutrition -Offload both heels -Heel protector on both heels -Assess and f/u accordingly for any changes MACRINA BUI May 10, 2017 10:46
[2017-05-10 11:24] VITALS: BP 124/62
--- NOTE | 2017-05-10 11:28 | Infectious Diseases Prog Note ---
Assessment/Plan Assessment/Plan A: UTI eColi leukocytosis improving Flu neg Dementia Obesity. Hypertension. COPD. GERD. Diabetes. Depression/anxiety PLAN: Cont on Zithromax. d# 4/5 ,cont bactrim Dc d# 2 / 7 , 05/09 SP vancomycin, aztreonam, and Tamiflu d# 3 , Monitor CBC Monitor BMP. Subjective Allergies: Coded Allergies: ASPIRIN (Verified Allergy, Unknown, 12/30/15) CIPROFLOXACIN (Verified Allergy, Unknown, 12/30/15) PENICILLINS (Verified Allergy, Unknown, 12/30/15) Subjective Afebrile Objective Vital Signs Last 24 Hour Vital Signs Date Time Temp Pulse Resp B/P (MAP) Pulse Ox O2 Delivery O2 Flow Rate FiO2 05/10/17 11:24 97.3 85 22 124/62 92 05/10/17 09:13 83 124/56 05/10/17 05:09 124/56 95 Nasal Cannula 4.0 05/10/17 04:49 97.5 83 20 88/56 95 Nasal Cannula 05/10/17 00:00 96 Nasal Cannula 4.0 05/09/17 23:51 97.2 78 20 149/71 96 Room Air 05/09/17 19:56 97.5 77 18 121/50 92 Room Air 05/09/17 16:00 97.7 77 20 130/71 95 05/09/17 12:00 97.3 90 21 142/72 91 05/09/17 12:00 97.3 90 21 142/72 91 Height (Feet): 5 Height (Inches): 6.00 Weight (Pounds): 260 HEENT: mucous membranes moist Respiratory/Chest: normal breath sounds Cardiovascular: regular rhythm Microbiology Date/Time Source Procedure Growth Status 05/07/17 14:25 Nasopharynx Influenza Types A,B Antigen (JAZMINE) - Final Complete Current Medications Medications (Trade) Dose Ordered Sig/Marah Route PRN Reason Start Time Stop Time Status Last Admin Dose Admin Acetaminophen (Tylenol) 650 mg Q4H PRN ORAL Fever 05/03/17 00:45 06/02/17 00:44 Azithromycin 500 mg/Dextrose 275 ml @ 275 mls/hr Q24HRS IV 05/07/17 15:00 05/13/17 15:59 05/09/17 15:04 Dextrose (Dextrose 50%) STAT PRN IV Hypoglycemia 05/03/17 00:45 06/02/17 00:44 Donepezil HCl (Aricept) 10 mg DAILY ORAL 05/03/17 09:00 06/02/17 08:59 05/10/17 09:13 Escitalopram Oxalate (Lexapro) 10 mg DAILY ORAL 05/03/17 09:00 06/02/17 08:59 05/10/17 09:13 Fluoxetine HCl (PROzac) 20 mg DAILY ORAL 05/08/17 09:00 06/07/17 08:59 05/10/17 09:13 Furosemide (Lasix) 20 mg EVERY 12 HOURS IV 05/09/17 21:00 06/08/17 20:59 05/10/17 09:32 Heparin Sodium (Porcine) (Heparin 5000 units/ml) 5,000 units EVERY 12 HOURS SUBQ 05/03/17 09:00 06/02/17 08:59 05/10/17 09:16 Insulin Aspart (NovoLOG) BEFORE MEALS AND HS SUBQ 05/03/17 07:30 06/02/17 07:29 05/10/17 11:16 Lorazepam (Ativan) 1 mg Q6H PRN ORAL Agitation 05/03/17 21:45 05/10/17 21:44 05/07/17 15:14 Memantine (Namenda) 10 mg DAILY ORAL 05/03/17 09:00 06/02/17 08:59 05/10/17 09:13 Metoprolol Succinate (Toprol XL) 25 mg DAILY ORAL 05/04/17 11:00 06/03/17 10:59 05/10/17 09:13 Ondansetron HCl (Zofran) 4 mg Q6H PRN IVP Nausea & Vomiting 05/03/17 00:45 06/02/17 00:44 Oseltamivir Phosphate (Tamiflu) 30 mg TWICE A DAY ORAL 05/07/17 22:00 05/12/17 21:59 05/10/17 09:33 Polyethylene Glycol (Miralax) 17 gm DAILYPRN PRN ORAL Constipation 05/03/17 00:45 06/02/17 00:44 Potassium Chloride (K-Dur) 20 meq DAILY ORAL 05/04/17 11:00 06/03/17 10:59 05/10/17 09:13 Sitagliptin Phosphate (Januvia) 100 mg ACBREAKFAST ORAL 05/03/17 11:30 06/02/17 11:29 05/10/17 06:25 Trimethoprim/ Sulfamethoxazole (Bactrim-DS) 1 ea TWICE A DAY ORAL 05/09/17 12:00 05/16/17 11:59 05/10/17 09:13 STAS NELSON M.D. May 10, 2017 11:28
[2017-05-10] MEDS: Azithromycin 500 MG in D5W 275 ML IV SCH (15:22)
[2017-05-10 15:55] VITALS: BP 130/61
--- NOTE | 2017-05-10 19:47 | Pulmonology Progress Note ---
Assessment/Plan Problems: (1) PNA (pneumonia) (2) Acute respiratory failure with hypoxemia (3) CHF exacerbation (4) Hyperglycemia due to type 2 diabetes mellitus (5) COPD exacerbation (6) ACS (acute coronary syndrome) (7) Psychosis (8) ARJUN (obstructive sleep apnea) (9) Depression (10) Morbid obesity Assessment/Plan improving titrate fio2 bilateral edema check bun/creatinine dvt prohylaxis start lasix again still sinus f/u cardiology recommendations on bactrim, dc to nursign home with 5 more days of bactrim med/surg Subjective ROS Limited/Unobtainable: No Constitutional: Reports: no symptoms HEENT: Repors: no symptoms Respiratory: Reports: no symptoms Allergies: Coded Allergies: ASPIRIN (Verified Allergy, Unknown, 12/30/15) CIPROFLOXACIN (Verified Allergy, Unknown, 12/30/15) PENICILLINS (Verified Allergy, Unknown, 12/30/15) Objective Last 24 Hour Vital Signs Date Time Temp Pulse Resp B/P (MAP) Pulse Ox O2 Delivery O2 Flow Rate FiO2 05/10/17 15:55 98.1 74 20 130/61 92 05/10/17 11:24 97.3 85 22 124/62 92 05/10/17 09:13 83 124/56 05/10/17 05:09 124/56 95 Nasal Cannula 4.0 05/10/17 04:49 97.5 83 20 88/56 95 Nasal Cannula 05/10/17 00:00 96 Nasal Cannula 4.0 05/09/17 23:51 97.2 78 20 149/71 96 Room Air 05/09/17 19:56 97.5 77 18 121/50 92 Room Air Intake and Output 05/09/17 05/10/17 19:00 07:00 Intake Total 240 ml Balance 240 ml Intake Oral 240 ml # Bowel Movements 1 Objective HEENT: normocephalic Respiratory/Chest: chest wall non-tender, lungs clear, normal breath sounds Breasts: no masses Cardiovascular: normal peripheral pulses, normal rate Abdomen: normal bowel sounds, no organomegaly Extremities: no cyanosis, no clubbing Skin: no rash Current Medications Medications (Trade) Dose Ordered Sig/Marah Route PRN Reason Start Time Stop Time Status Last Admin Dose Admin Acetaminophen (Tylenol) 650 mg Q4H PRN ORAL Fever 05/03/17 00:45 06/02/17 00:44 Azithromycin 500 mg/Dextrose 275 ml @ 275 mls/hr Q24HRS IV 05/07/17 15:00 05/13/17 15:59 05/10/17 15:22 Dextrose (Dextrose 50%) STAT PRN IV Hypoglycemia 05/03/17 00:45 06/02/17 00:44 Donepezil HCl (Aricept) 10 mg DAILY ORAL 05/03/17 09:00 06/02/17 08:59 05/10/17 09:13 Escitalopram Oxalate (Lexapro) 20 mg DAILY ORAL 05/11/17 09:00 06/10/17 08:59 Furosemide (Lasix) 20 mg EVERY 12 HOURS IV 05/09/17 21:00 06/08/17 20:59 05/10/17 09:32 Heparin Sodium (Porcine) (Heparin 5000 units/ml) 5,000 units EVERY 12 HOURS SUBQ 05/03/17 09:00 06/02/17 08:59 05/10/17 09:16 Insulin Aspart (NovoLOG) BEFORE MEALS AND HS SUBQ 05/03/17 07:30 06/02/17 07:29 05/10/17 18:27 Lorazepam (Ativan) 1 mg Q6H PRN ORAL Agitation 05/03/17 21:45 05/10/17 21:44 05/07/17 15:14 Memantine (Namenda) 10 mg DAILY ORAL 05/03/17 09:00 06/02/17 08:59 05/10/17 09:13 Metoprolol Succinate (Toprol XL) 25 mg DAILY ORAL 05/04/17 11:00 06/03/17 10:59 05/10/17 09:13 Ondansetron HCl (Zofran) 4 mg Q6H PRN IVP Nausea & Vomiting 05/03/17 00:45 06/02/17 00:44 Oseltamivir Phosphate (Tamiflu) 30 mg TWICE A DAY ORAL 05/07/17 22:00 05/12/17 21:59 05/10/17 18:32 Polyethylene Glycol (Miralax) 17 gm DAILYPRN PRN ORAL Constipation 05/03/17 00:45 06/02/17 00:44 Potassium Chloride (K-Dur) 20 meq DAILY ORAL 05/04/17 11:00 06/03/17 10:59 05/10/17 09:13 Sitagliptin Phosphate (Januvia) 100 mg ACBREAKFAST ORAL 05/03/17 11:30 06/02/17 11:29 05/10/17 06:25 Trimethoprim/ Sulfamethoxazole (Bactrim-DS) 1 ea TWICE A DAY ORAL 05/09/17 12:00 05/16/17 11:59 05/10/17 18:32 YEIMY SORENSEN May 10, 2017 19:47
[2017-05-10 20:08] VITALS: BP 131/85
[2017-05-10] MEDS: LORazepam 1mg tab ORAL PRN (20:40)
--- NOTE | 2017-05-10 23:15 | Progress Note ---
DATE: 05/10/2017 SUBJECTIVE: The patient was found in bed, in no acute distress, however, she appears to be depressed. The patient at baseline is having anxiety, agitation and is irritable. The patient complains of itchiness at baseline, nurses note at [facility]. MENTAL STATUS EXAMINATION: The patient is alert, oriented times to self and place. Mood is dysphoric and irritable. Affect is constricted. Congruent with mood. Thought process is concrete. Thought content, no suicidal or homicidal ideation. ASSESSMENT: Depression and cognitive impairment. PLAN: 1. Discontinue the Prozac 20 mg. 2. We will increase the Lexapro to 20 mg in the morning. 3. We will continue follow and readjust the medications. Khalif Talley M.D. DR: JULIANN JOB#: [id number] CC:
[2017-05-11 00:06] VITALS: BP 153/77
[2017-05-11] MEDS: NovoLOG Insulin Flexpen SUBQ SCH ×4 (06:23→21:18)
[2017-05-11] MEDS: Bactrim-DS 1 tab ORAL SCH ×2 (09:22→18:38)
[2017-05-11] MEDS: Metoprolol Succinate XL 25mg tab ORAL SCH (09:23)
[2017-05-11] MEDS: Donepezil 10mg tab ORAL SCH (09:24)
[2017-05-11] MEDS: Heparin 5000 units/ml inj SUBQ SCH ×2 (09:26→21:17)
[2017-05-11] MEDS: Memantine 10mg tab ORAL SCH (09:27)
--- NOTE | 2017-05-11 11:52 | Infectious Diseases Prog Note ---
Assessment/Plan Assessment/Plan A: UTI eColi leukocytosis improving Flu neg Dementia Obesity. Hypertension. COPD. GERD. Diabetes. Depression/anxiety PLAN: ,cont bactrim Dc d# 3 / 7 , dc Zithromax. d# 5/5 05/09 SP vancomycin, aztreonam, and Tamiflu d# 3 , Monitor CBC Monitor BMP. Subjective Constitutional: Denies: no symptoms, fever, chills, fatigue, anorexia, drenching sweats, other Allergies: Coded Allergies: ASPIRIN (Verified Allergy, Unknown, 12/30/15) CIPROFLOXACIN (Verified Allergy, Unknown, 12/30/15) PENICILLINS (Verified Allergy, Unknown, 12/30/15) Subjective Afebrile Objective Vital Signs Last 24 Hour Vital Signs Date Time Temp Pulse Resp B/P (MAP) Pulse Ox O2 Delivery O2 Flow Rate FiO2 05/11/17 09:23 89 137/62 05/11/17 04:00 95 Nasal Cannula 4.0 05/11/17 00:06 97.3 78 20 153/77 90 05/10/17 20:08 98.0 81 20 131/85 93 Nasal Cannula 05/10/17 19:10 95 Nasal Cannula 2.0 28 05/10/17 19:10 Nasal Cannula 2.0 28 05/10/17 15:55 98.1 74 20 130/61 92 Height (Feet): 5 Height (Inches): 6.00 Weight (Pounds): 260 HEENT: atraumatic Respiratory/Chest: no respiratory distress Cardiovascular: regular rhythm Abdomen: normal bowel sounds Current Medications Medications (Trade) Dose Ordered Sig/Marah Route PRN Reason Start Time Stop Time Status Last Admin Dose Admin Acetaminophen (Tylenol) 650 mg Q4H PRN ORAL Fever 05/03/17 00:45 06/02/17 00:44 Azithromycin 500 mg/Dextrose 275 ml @ 275 mls/hr Q24HRS IV 05/07/17 15:00 05/13/17 15:59 05/10/17 15:22 Dextrose (Dextrose 50%) STAT PRN IV Hypoglycemia 05/03/17 00:45 06/02/17 00:44 Donepezil HCl (Aricept) 10 mg DAILY ORAL 05/03/17 09:00 06/02/17 08:59 05/11/17 09:24 Escitalopram Oxalate (Lexapro) 20 mg DAILY ORAL 05/11/17 09:00 06/10/17 08:59 05/11/17 09:23 Furosemide (Lasix) 20 mg EVERY 12 HOURS IV 05/09/17 21:00 06/08/17 20:59 05/11/17 09:49 Heparin Sodium (Porcine) (Heparin 5000 units/ml) 5,000 units EVERY 12 HOURS SUBQ 05/03/17 09:00 06/02/17 08:59 05/11/17 09:26 Insulin Aspart (NovoLOG) BEFORE MEALS AND HS SUBQ 05/03/17 07:30 06/02/17 07:29 05/11/17 11:39 Memantine (Namenda) 10 mg DAILY ORAL 05/03/17 09:00 06/02/17 08:59 05/11/17 09:27 Metoprolol Succinate (Toprol XL) 25 mg DAILY ORAL 05/04/17 11:00 06/03/17 10:59 05/11/17 09:23 Ondansetron HCl (Zofran) 4 mg Q6H PRN IVP Nausea & Vomiting 05/03/17 00:45 06/02/17 00:44 Oseltamivir Phosphate (Tamiflu) 30 mg TWICE A DAY ORAL 05/07/17 22:00 05/12/17 21:59 05/11/17 09:49 Polyethylene Glycol (Miralax) 17 gm DAILYPRN PRN ORAL Constipation 05/03/17 00:45 06/02/17 00:44 Potassium Chloride (K-Dur) 20 meq DAILY ORAL 05/04/17 11:00 06/03/17 10:59 05/11/17 09:24 Sitagliptin Phosphate (Januvia) 100 mg ACBREAKFAST ORAL 05/03/17 11:30 06/02/17 11:29 05/11/17 06:20 Trimethoprim/ Sulfamethoxazole (Bactrim-DS) 1 ea TWICE A DAY ORAL 05/09/17 12:00 05/16/17 11:59 05/11/17 09:22 STAS NELSON M.D. May 11, 2017 11:52
[2017-05-11 12:00] VITALS: BP 145/77
[2017-05-11 15:54] VITALS: BP 133/64
--- NOTE | 2017-05-11 18:57 | Pulmonology Progress Note ---
Assessment/Plan Problems: (1) PNA (pneumonia) (2) Acute respiratory failure with hypoxemia (3) CHF exacerbation (4) Hyperglycemia due to type 2 diabetes mellitus (5) COPD exacerbation (6) ACS (acute coronary syndrome) (7) Psychosis (8) ARJUN (obstructive sleep apnea) (9) Depression (10) Morbid obesity Assessment/Plan improving titrate fio2 bilateral edema check bun/creatinine dvt prohylaxis start lasix again still sinus f/u cardiology recommendations med/surg Subjective ROS Limited/Unobtainable: No Allergies: Coded Allergies: ASPIRIN (Verified Allergy, Unknown, 12/30/15) CIPROFLOXACIN (Verified Allergy, Unknown, 12/30/15) PENICILLINS (Verified Allergy, Unknown, 12/30/15) Objective Last 24 Hour Vital Signs Date Time Temp Pulse Resp B/P (MAP) Pulse Ox O2 Delivery O2 Flow Rate FiO2 05/11/17 15:54 97.5 70 21 133/64 90 05/11/17 12:00 97.2 72 20 145/77 90 05/11/17 09:23 89 137/62 05/11/17 04:00 95 Nasal Cannula 4.0 05/11/17 00:06 97.3 78 20 153/77 90 05/10/17 20:08 98.0 81 20 131/85 93 Nasal Cannula 05/10/17 19:10 95 Nasal Cannula 2.0 28 05/10/17 19:10 Nasal Cannula 2.0 28 Intake and Output 05/10/17 05/11/17 19:00 07:00 Intake Total 720 ml Balance 720 ml Intake Oral 720 ml # Voids 2 # Bowel Movements 1 Objective HEENT: normocephalic Respiratory/Chest: chest wall non-tender, lungs clear, normal breath sounds Breasts: no masses Cardiovascular: normal peripheral pulses, normal rate Abdomen: normal bowel sounds, no organomegaly Extremities: no cyanosis, no clubbing Skin: no rash Current Medications Medications (Trade) Dose Ordered Sig/Marah Route PRN Reason Start Time Stop Time Status Last Admin Dose Admin Acetaminophen (Tylenol) 650 mg Q4H PRN ORAL Fever 05/03/17 00:45 06/02/17 00:44 Dextrose (Dextrose 50%) STAT PRN IV Hypoglycemia 05/03/17 00:45 06/02/17 00:44 Donepezil HCl (Aricept) 10 mg DAILY ORAL 05/03/17 09:00 06/02/17 08:59 05/11/17 09:24 Escitalopram Oxalate (Lexapro) 20 mg DAILY ORAL 05/11/17 09:00 06/10/17 08:59 05/11/17 09:23 Furosemide (Lasix) 20 mg EVERY 12 HOURS IV 05/09/17 21:00 06/08/17 20:59 05/11/17 09:49 Heparin Sodium (Porcine) (Heparin 5000 units/ml) 5,000 units EVERY 12 HOURS SUBQ 05/03/17 09:00 06/02/17 08:59 05/11/17 09:26 Insulin Aspart (NovoLOG) BEFORE MEALS AND HS SUBQ 05/03/17 07:30 06/02/17 07:29 05/11/17 17:54 Memantine (Namenda) 10 mg DAILY ORAL 05/03/17 09:00 06/02/17 08:59 05/11/17 09:27 Metoprolol Succinate (Toprol XL) 25 mg DAILY ORAL 05/04/17 11:00 06/03/17 10:59 05/11/17 09:23 Ondansetron HCl (Zofran) 4 mg Q6H PRN IVP Nausea & Vomiting 05/03/17 00:45 06/02/17 00:44 Polyethylene Glycol (Miralax) 17 gm DAILYPRN PRN ORAL Constipation 05/03/17 00:45 06/02/17 00:44 Potassium Chloride (K-Dur) 20 meq DAILY ORAL 05/04/17 11:00 06/03/17 10:59 05/11/17 09:24 Sitagliptin Phosphate (Januvia) 100 mg ACBREAKFAST ORAL 05/03/17 11:30 06/02/17 11:29 05/11/17 06:20 Trimethoprim/ Sulfamethoxazole (Bactrim-DS) 1 tab TWICE A DAY ORAL 05/09/17 12:00 05/16/17 11:59 05/11/17 18:38 YEIMY SORENSEN May 11, 2017 18:57
[2017-05-11 20:34] VITALS: BP 136/64
--- NOTE | 2017-05-12 07:45 | Progress Note ---
DATE: 05/11/2017 SUBJECTIVE: The patient is calm, cooperative, and asleep. She is able to answer simple questions. At baseline, she is easily agitated, using profanity 00:16 calm and agitated. MENTAL STATUS EXAMINATION: The patient is alert and oriented times self and place. Mood is agitated. Affect is constricted. Thought process is concrete. Thought content, no suicidal or homicidal ideation. Positive for delusions. Insight and judgment is impaired. Cognition is impaired. ASSESSMENT: Dementia and depression. PLAN: 1. We will continue the Prozac. 2. Provide the patient with supportive therapy and reality orientation. Khalif Talley M.D. DR: HUMBERTO JOB#: [id number] CC:
--- NOTE | 2017-05-13 11:32 | General Progress Note ---
Assessment/Plan Status: stable, progressing Assessment/Plan mdd cont prozac cont taniajosue dia aricept Subjective Date patient seen: May 12, 2017 Neurologic/Psychiatric: Reports: anxiety, depressed, emotional problems Allergies: Coded Allergies: ASPIRIN (Verified Allergy, Unknown, 12/30/15) CIPROFLOXACIN (Verified Allergy, Unknown, 12/30/15) PENICILLINS (Verified Allergy, Unknown, 12/30/15) Objective Height (Feet): 5 Height (Inches): 6.00 Weight (Pounds): 260 General Appearance: no apparent distress, alert, confused, overweight Khalif Talley M.D. May 13, 2017 11:32
--- NOTE | 2017-05-13 15:16 | Discharge Summary ---
Discharge Summary Hospital Course Date of Admission May 03, 2017 at 00:07 Date of Discharge May 12, 2017 at 00:25 Admitting Diagnosis ACS, chf, copd HPI Wanda Montiel is a 81 year old female who was admitted on May 03, 2017 at 00:07 for Respiratory distress Hospital Course [id number] Discharge Discharge Disposition Patient was discharged to SNF/Subacute Facility(03) Discharge Diagnoses: Renita Hawk NP May 13, 2017 15:16
--- NOTE | 2017-05-14 04:15 | Discharge Summary 2 SIG ---
DATE OF ADMISSION: 05/03/2017 DATE OF DISCHARGE: 05/12/2017 CONSULTANTS: 1. Pradip Stout D.O. 2. Khalif Talley M.D. 3. Hardy Lyons M.D. 4. Camacho Cabrera M.D. BRIEF HOSPITAL COURSE: The patient is an 81-year-old female with history of dementia, chronic obstructive pulmonary disease, hypertension, morbid obesity, and bedbound, presented to ER complaining of respiratory distress. Per EMS, nursing staff noted shortness of breath and O2 saturation was 80% on room air. She was placed on four liters nasal cannula and O2 saturation came up to 95%. On evaluation at ED, BNP was 2619. EKG showed normal sinus rhythm and chest x-ray showed increased vascular congestion. Troponin was 0.091. Aspirin was given. She was started on Lasix and was admitted to telemetry for congestive heart failure exacerbation and abnormal cardiac enzymes. She was seen by Dr. Cabrera. A 12-lead EKG did not show significant ST to T-wave abnormalities. Echocardiogram was limited due to the patient's noncooperation. Ejection fraction was estimated to be 60%. There was mild left ventricular hypertrophy, minimal valvular regurgitation. Diastolic dysfunction cannot be evaluated because of lack of cooperation by the patient. Troponin levels were monitored. The patient denied chest pain. Troponin normalized. She was given diuretics. Venous duplex of lower extremity was negative for DVT. BUN and creatinine was rising. Lasix was placed on hold. The patient has a history of psychosis and was diagnosed with major depressive disorder, anxiety, and dementia. Lexapro was discontinued and was given Prozac. She was also given Namenda. Aricept was eventually discontinued. Prozac was discontinued and Lexapro was increased to 20 mg daily. The patient was initially started on vancomycin, aztreonam, and Tamiflu empirically. Urine culture showed growth of E. coli and influenza screen was negative. IV antibiotic was discontinued. Tamiflu was discontinued. The patient was given Bactrim and Zithromax. She was eventually cleared for discharge to continue p.o. antibiotic in the assisted. She came in with a sacrococcygeal DTI pressure ulcer and was given wound care. The patient was eventually discharged to SNF. FINAL DIAGNOSES: 1. Pneumonia. 2. Acute diastolic congestive heart failure exacerbation. 3. Hyperglycemia due to diabetes type 2. 4. Acute chronic obstructive pulmonary disease exacerbation. 5. Psychosis. 6. Obstructive sleep apnea. 7. Depression. 8. Morbid obesity. 9. Dementia. 10. Urinary tract infection with Escherichia coli. 11. Gastroesophageal reflux disease. 12. Sacrococcygeal deep tissue injury and pressure ulcer, present on admission. DISPOSITION: The patient was discharged to [facility]. DISCHARGE MEDICATIONS: Refer to medication list. Brice John M.D. I have been assigned to dictate discharge summary on this account and I was not involved in the patient's management. Renita Hawk N.P. DR: JEANMARIE JOB#: [id number] CC:
--- NOTE | 2017-05-20 11:42 | Diagnostic Imaging Report ---
APPROVED REPORT CPT Code: 82828 Present Symptoms Shortness of breath Technically difficult, limited study due to pt non-cooperation. BILATERAL LOWER EXTREMITY VENOUS DUPLEX: Imaging reveals a patent deep venous system bilaterally. There is no evidence of thrombus within the femoral, or tibial segments. The greater saphenous veins are also within normal limits. Doppler indicates normal spontaneous flow within these segments. The distal right superficial femoral vein and bilateral popliteal veins were not visualized.
== END 2017-05-12 00:25 | DRG 193 ==
LOC: EDBD 21:19 → EMR 21:25 → EDBEDREQ 23:07 → SDSOVERFLO 05-03 00:07 → EDBEDREQ 05-03 15:07 → 2E 05-03 15:39 → 4W 05-08 14:30
DX: J18.9 Pneumonia, unspecified organism (principal); J96.01 Acute respiratory failure with hypoxia; L89.150 Pressure ulcer of sacral region, unstageable; I50.31 Acute diastolic (congestive) heart failure; J44.1 Chronic obstructive pulmonary disease with (acute) exacerbation; Z68.42 Body mass index [BMI] 45.0-49.9, adult; E11.65 Type 2 diabetes mellitus with hyperglycemia; I24.9 Acute ischemic heart disease, unspecified; N39.0 Urinary tract infection, site not specified; G47.33 Obstructive sleep apnea (adult) (pediatric); E66.01 Morbid (severe) obesity due to excess calories; Z88.6 Allergy status to analgesic agent; Z88.1 Allergy status to other antibiotic agents; Z88.0 Allergy status to penicillin; B96.20 Unspecified Escherichia coli [E. coli] as the cause of diseases classified elsewhere; K21.9 Gastro-esophageal reflux disease without esophagitis; F29 Unspecified psychosis not due to a substance or known physiological condition; F32.9 Major depressive disorder, single episode, unspecified; Z79.4 Long term (current) use of insulin
CPT/HCPCS: 36415; 71045; 80048; 80053; 80202; 81003; 82550; 82553; 82962; 83605; 83880; 84484; 85007; 85025; 85610; 85730; 86710; 87040; 87081; 87086; 87181; 93005; 93306; 93970; 94640; 94664; 94760; J1815; J7620; J8499

== ENCOUNTER 2019-09-21 00:14 | Inpatient (IN) | payer MEDICARE ==
[2019-09-21] VITALS (7 sets, daily range): BP systolic 107–153; BP diastolic 53–77
[~2019-09-21] VITALS: Ht 167.6 cm; Wt 83.0 kg
[~2019-09-21 00:14] MED LIST changes: +ACETAMINOPHEN325 M1 ORAL; +BISACODYL10 M1 RC; +DOCUSATE SODIU100 MG ORAL; +JANUVIA25 MG ORAL; +MILK OF MA400 MG/51 ORAL; +MINERAL OIL EN133 ML RC; +NOVOLIN R100 UNIT/1 SUBQ; +POTASSIUM CHLO20 ME2 ORAL; +TOUJEO SOL300 UNIT/1 SQ
--- NOTE | 2019-09-21 00:20 | NUR ---
ED Nurse Note: Pt brought in by [facility] from [facility] for respitory distress, pt sat 65% on 15L per EMS, no COVID testing done prior. Pt is DNR. Pt placed on cotton dispatcher, blood and urine sent to lab, IV fluids infusing per order. ERMD at bedside, pt on 15L non-rebreather
--- NOTE | 2019-09-21 00:26 | Emergency Room Report ---
History of Present Illness General Chief Complaint: Dyspnea/Respdistress Source: Medical Record, EMS Present Illness HPI This is an 83-year-old female with history of dementia, diabetes, CVA, hypertension who resides in a senior care. She presents with chief complaint of respiratory stress. Onset for last few days. She has fever and decreased oxygenation. Increase respiratory distress and sputum production. Symptoms worsened tonight and EMS was called. Unable to get any other history from this patient. There was reported low-grade fever. Patient is a DNR/DNI. Allergies: Coded Allergies: ASPIRIN (Verified Allergy, Unknown, 12/30/15) CIPROFLOXACIN (Verified Allergy, Unknown, 12/30/15) PENICILLINS (Verified Allergy, Unknown, 12/30/15) Uncoded Allergies: PCN (Allergy, Unknown, 09/21/19) COVID-19 Screening Contact w/high risk pt: No Recent Travel to affected area: No Experienced COVID-19 symptoms?: Yes COVID-19 symptoms experienced: Shortness of Breath COVID-19 Testing performed [employer]OL COMMISSIONER: No Patient History Past Medical History: see triage record, old chart reviewed, DM, HTN, CHF, CVA/ TIA Past Surgical History: other Pertinent Family History: none Social History: Denies: smoking Now: No Immunizations: UTD Reviewed Nursing Documentation: PMH: Agreed; PSxH: Agreed Nursing Documentation-PMH Past Medical History Deferred: Pt Cognitively Impaired Hx Cardiac Problems: Yes - sepsis, UTI Hx Hypertension: No Hx Pacemaker: No Hx Asthma: No Hx COPD: No Hx Diabetes: No Hx Cancer: No Hx Gastrointestinal Problems: Yes - e. coli Hx Dialysis: No History Of Psychiatric Problem: No Hx Neurological Problems: Yes - vegetative state Hx Cerebrovascular Accident: Yes Hx Alzheimer's Disease: Yes Hx Seizures: No Hx Weakness: Yes Review of Systems Constitutional: Reports: fever, weakness Respiratory: Reports: cough, shortness of breath All Other Systems: limited - Secondary to her condition Physical Exam Vital Signs Date Time Temp Pulse Resp B/P (MAP) Pulse Ox O2 Delivery O2 Flow Rate FiO2 09/21/19 00:14 99.9 104 20 135/68 (90) 65 Non-Rebreather 15.0 Vitals with fever and hypoxia Sp02 EP Interpretation: abnormal General Appearance: severe distress, obese, Stupor Head: normocephalic, atraumatic Eyes: bilateral eye PERRL, bilateral eye EOMI ENT: moist mucus membranes Neck: full range of motion, supple, no meningismus Respiratory: chest non-tender, respiratory distress, decreased breath sounds, crackles Cardiovascular #1: regular rate, rhythm, no murmur, tachycardia Gastrointestinal: normal bowel sounds, non tender, no mass, no organomegaly, no bruit, non-distended Musculoskeletal: back normal Neurologic: no pronator Psychiatric: other Procedures Critical Care Time Critical Care Time Critical care is mandated in this patient who presented with acute respiratory failure probably secondary to COVID ARDS. Patient require my urgent intervention to attenuate the risks of respiratory collapse which may lead to cardiovascular collapse and . Critical care time is 35 minutes excluding any reportable procedure. Critical care time included evaluation, multiple reevaluation, looking at old charts, interpreting laboratory and diagnostic data , discussing case with patient and family and consultants, and charting. Medical Decision Making Diagnostic Impression: Primary Impression: Severe sepsis Additional Impressions: HCAP (healthcare-associated pneumonia) Suspected severe acute respiratory syndrome coronavirus 2 (SARS-CoV-2) infection UTI (urinary tract infection) Qualified Codes: N30.00 - Acute cystitis without hematuria Respiratory failure with hypoxia Qualified Codes: J96.01 - Acute respiratory failure with hypoxia Hyperglycemia due to type 2 diabetes mellitus Qualified Codes: E11.65 - Type 2 diabetes mellitus with hyperglycemia; Z79.4 - senior care (current) use of insulin ER Course This patient presents with respiratory failure and severe hypoxia. She has ARDS probably secondary to COVID. Antibiotics given. Patient is saturating 88 % on nonrebreather. Condition is critical and prognosis poor. Will admit for oxygen and IV antibiotics. I contacted Dr. Jimenes for admission. EKG Diagnostic Results Rate: tachycardiac Rhythm: NSR ST Segments: other - NSST changes Rhythm Strip Diag. Results EP Interpretation: yes Rate: 120 Rhythm: NSR, no PVC's, no ectopy Chest X-Ray Diagnostic Results Chest X-Ray Diagnostic Results : Chest X-Ray Ordered: Yes # of Views/Limited/Complete: 1 View Indication: Shortness of Breath EP Interpretation: Yes Interpretation: no effusion, no pneumothorax, other - multilobar infiltrates Impression: Other - b/l infiltrates Electronically Signed by: Juan José Melissa MD Last Vital Signs Date Time Temp Pulse Resp B/P (MAP) Pulse Ox O2 Delivery O2 Flow Rate FiO2 09/21/19 00:14 99.9 104 20 135/68 (90) 65 Non-Rebreather 15.0 Status: improved Disposition: ADMITTED INPATIENT Condition: Critical Juan José Melissa MD September 21, 2019 00:26
[2019-09-21] MEDS ORDERED: Acetaminophen 650 MG SUPP RECTAL ONE (00:30)
[2019-09-21 00:51] LABS: HEMATOCRIT 49.2 % (37.0-47.0); HEMOGLOBIN 16.1 G/DL (12.0-16.0); MEAN CORPUSCULAR VOLUME 84 FL (80-99); PLATELET COUNT 198 K/UL (150-450); RED BLOOD COUNT 5.85 M/UL (4.20-5.40); RED CELL DISTRIBUTION WIDTH 12.1 % (11.6-14.8); WHITE BLOOD COUNT 12.3 K/UL (4.8-10.8)
[2019-09-21] MEDS ORDERED: Cefepime HCl 1 GM in D5W 55 ML IVPB ONE (01:00)
[2019-09-21] MEDS ORDERED: Azithromycin 500 MG in NS 275 ML IV ONE (01:00)
[2019-09-21 01:02] LABS: APPEARANCE,URINE CLOUDY; BILIRUBIN, URINE 1+ (NEGATIVE); GLUCOSE, URINE (UA) NEGATIVE (NEGATIVE); KETONES,URINE NEGATIVE (NEGATIVE); LEUKOCYTE ESTERASE ,URINE 3+ (NEGATIVE); NITRITE,URINE NEGATIVE (NEGATIVE); PH,URINE 5 (4.5-8.0); PROTEIN,URINE 3+ (NEGATIVE); UROBILINOGEN,URINE 4 MG/DL (0.0-1.0)
[2019-09-21 01:04] LABS: ANION GAP 9 mmol/L (5-15); BLOOD UREA NITROGEN 28 mg/dL (7-18); CALCIUM 7.9 MG/DL (8.5-10.1); CARBON DIOXIDE 30 MMOL/L (21-32); CHLORIDE 101 MMOL/L (98-107); CREATININE 1.2 MG/DL (0.55-1.30); POTASSIUM 3.8 MMOL/L (3.5-5.1); SODIUM 139 MMOL/L (136-145)
[2019-09-21] MEDS ORDERED: Enoxaparin 120 mg inj SUBQ ONE (01:15)
[2019-09-21] MEDS ORDERED: Enoxaparin 60mg Inj SUBQ ONE ×2 (01:15→01:30)
[2019-09-21 01:19] LABS: COLOR,URINE YELLOW
[2019-09-21 01:19] LABS: ALANINE AMINOTRANSFERASE 52 U/L (12-78); ALBUMIN 1.5 G/DL (3.4-5.0); ALBUMIN/GLOBULIN RATIO 0.3 (1.0-2.7); ALKALINE PHOSPHATASE 192 U/L (46-116); ASPARTATE AMINO TRANSFERASE 96 U/L (15-37); BILIRUBIN,TOTAL 0.4 MG/DL (0.2-1.0); CKMB 0.8 NG/ML (0.0-3.6); CREATINE KINASE 28 U/L (26-308); FERRITIN 737 NG/ML (8-388)
--- NOTE | 2019-09-21 01:39 | Emergency Room Report ---
Sepsis Event Note Evaluation Current Stage of Sepsis: Severe Sepsis Possible Source: Pulmonary Focused Exam Allergies: Coded Allergies: ASPIRIN (Verified Allergy, Unknown, 12/30/15) CIPROFLOXACIN (Verified Allergy, Unknown, 12/30/15) PENICILLINS (Verified Allergy, Unknown, 12/30/15) Uncoded Allergies: PCN (Allergy, Unknown, 09/21/19) Date Exam Occurred: September 21, 2019 Time Exam Occurred: 01:39 Laboratory Studies Laboratory Tests Test 09/21/19 00:20 09/21/19 00:37 White Blood Count 12.3 K/UL (4.8-10.8) H Red Blood Count 5.85 M/UL (4.20-5.40) H Hemoglobin 16.1 G/DL (12.0-16.0) H Hematocrit 49.2 % (37.0-47.0) H Mean Corpuscular Volume 84 FL (80-99) Mean Corpuscular Hemoglobin 27.4 PG (27.0-31.0) Mean Corpuscular Hemoglobin Concent 32.6 G/DL (32.0-36.0) Red Cell Distribution Width 12.1 % (11.6-14.8) Platelet Count 198 K/UL (150-450) Mean Platelet Volume 7.9 FL (6.5-10.1) Neutrophils (%) (Auto) % (45.0-75.0) Lymphocytes (%) (Auto) % (20.0-45.0) Monocytes (%) (Auto) % (1.0-10.0) Eosinophils (%) (Auto) % (0.0-3.0) Basophils (%) (Auto) % (0.0-2.0) Erythrocyte Sedimentation Rate Pending D-Dimer 4.53 mg/L FEU (0.00-0.49) H Sodium Level 139 MMOL/L (136-145) Potassium Level 3.8 MMOL/L (3.5-5.1) Chloride Level 101 MMOL/L (98-107) Carbon Dioxide Level 30 MMOL/L (21-32) Anion Gap 9 mmol/L (5-15) Blood Urea Nitrogen 28 mg/dL (7-18) H Creatinine 1.2 MG/DL (0.55-1.30) Estimat Glomerular Filtration Rate 43.0 mL/min (>60) Glucose Level 306 MG/DL (74-106) H Lactic Acid Level 3.70 mmol/L (0.4-2.0) H Calcium Level 7.9 MG/DL (8.5-10.1) L Ferritin 737 NG/ML (8-388) H Total Bilirubin 0.4 MG/DL (0.2-1.0) Aspartate Amino Transf (AST/SGOT) 96 U/L (15-37) H Alanine Aminotransferase (ALT/SGPT) 52 U/L (12-78) Alkaline Phosphatase 192 U/L (46-116) H Total Creatine Kinase 28 U/L (26-308) Creatine Kinase MB 0.8 NG/ML (0.0-3.6) Creatine Kinase MB Relative Index 2.8 Troponin I 0.000 ng/mL (0.000-0.056) C-Reactive Protein, Quantitative 13.9 mg/dL (0.00-0.90) H Total Protein 7.4 G/DL (6.4-8.2) Albumin 1.5 G/DL (3.4-5.0) L Globulin 5.9 g/dL Albumin/Globulin Ratio 0.3 (1.0-2.7) L Urine Color Yellow Urine Appearance Cloudy Urine pH 5 (4.5-8.0) Urine Specific [place] 1.020 (1.005-1.035) Urine Protein 3+ (NEGATIVE) H Urine Glucose (UA) Negative (NEGATIVE) Urine Ketones Negative (NEGATIVE) Urine Blood 4+ (NEGATIVE) H Urine Nitrite Negative (NEGATIVE) Urine Bilirubin 1+ (NEGATIVE) H Urine Ictotest Negative (NEGATIVE) Urine Urobilinogen 4 MG/DL (0.0-1.0) H Urine Leukocyte Esterase 3+ (NEGATIVE) H Urine RBC 20-30 /HPF (0 - 2) H Urine WBC 20-30 /HPF (0 - 2) H Urine Squamous Epithelial Cells Moderate /LPF (NONE/OCC) H Urine Bacteria Many /HPF (NONE) H Urine Coarse Granular Casts 0-2 /LPF (NONE) H Vital Signs Last 24 Hour Vital Signs Date Time Temp Pulse Resp B/P (MAP) Pulse Ox O2 Delivery O2 Flow Rate FiO2 09/21/19 00:20 99.9 130 20 135/68 65 Non-Rebreather 15.0 09/21/19 00:20 104 20 Non-Rebreather 15.0 09/21/19 00:14 99.9 104 20 135/68 (90) 65 Non-Rebreather 15.0 Respiratory Exam: Rhonchi Cardiovascular Exam: RRR, Tachycardia Capillary Refill: Less Than 2 Seconds Peripheral Pulse: Strong Pulse Location: Radial Skin Exam: Normal Turgor Juan José You MD September 21, 2019 01:39
[2019-09-21] MEDS ORDERED: Acetaminophen 650 MG SUPP RECTAL PRN (01:45)
--- NOTE | 2019-09-21 02:30 | NUR ---
ED Nurse Note: Pt resting in bed with eyes closed, labored breathing RR 45, 15L non-rebreather mask. IV fluids infusing per order. Will continue to monitor
--- NOTE | 2019-09-21 05:00 | NUR ---
ED Nurse Note: Pt repositioned for comfort, pt with eyes closed, labored breathed, will continue to monitor
--- NOTE | 2019-09-21 07:10 | NUR ---
HAND-OFF: Report given to SOUMYA Bull.
--- NOTE | 2019-09-21 07:24 | NUR ---
ED Nurse Note: Report received from Jeanne DOOLEY.
--- NOTE | 2019-09-21 07:26 | NUR ---
ED Nurse Note: Received patient on bed awake on 15L NRB at o2 sat 85%. Patient on labored breathing. Patient with IV access on right ac - patent. Patient with fctub-draining.
--- NOTE | 2019-09-21 07:43 | NUR ---
TRANSFER TO FLOOR: REport given to SOUMYA Adams. Patient transferred to 210-1. No Belongings came with pt. Transferred to Tele with portable monitor with oxygen per protocol. Pt remains same condition. NAD noted.
--- NOTE | 2019-09-21 08:20 | NUR ---
NURSE NOTES: Patient was admitted to the telemetry unit, pt saturation is 80% on a non-rebreather with respiration of 30 per minute, [employer] supervisor and Md Montgomery notified
--- NOTE | 2019-09-21 08:30 | NUR ---
NURSE NOTES: Pt arrived in the unit. Received report from Elvis ED RN. Pt non-verbal, unable to follow simple commands. Pt on 15L non-rebreather, O2 sat 79%. Doctor Paige is consulted and per MD, he will come to assess pt. BP 110/60, RR 30, HR 102, temp 97.9. Tele monitor attached to the pt. Sacral DTI and some bruises on hands noted, B hands swollen, no edema on BLE observed. Per RN, pt does not have any belongings. Bed on lowest position, call light within reach. Will continue plan of care.
--- NOTE | 2019-09-21 08:33 | NUR ---
NURSE NOTES: Md Jimenes was called and stated to consult Md Gibson, also stated to continue home meds. Paige was contacted. Addendum: 09/21/19 at 0841 by JIGNA MADISON RN awaiting orders from Paige, he stated to keep the patient here and he will come and assess the pt shortly.
[2019-09-21] MEDS ORDERED: Albuterol/Ipratropium 3ml neb HHN PRN (08:45)
[2019-09-21] MEDS ORDERED: Milk of Magnesia 30ml Ud ORAL PRN (08:45)
[2019-09-21] MEDS ORDERED: Fleet's Mineral Oil Enema RECTAL PRN (08:45)
--- NOTE | 2019-09-21 08:55 | NUR ---
CASE MANAGEMENT:REVIEW 83 YR OLD FEMALE BIBA FROM [facility] CC: SOB. SATS~65% ON RA PMH: DNR/DNI SI: SEPSIS. PNEUMONIA SUSPECTED COVID 19 99.9 104 45 135/68 65% ON 15L NRB WBC+12.3 IS: 1L NS BOLUS TYLENOL NE IV CEFEPIME IV AZITHROMYCIN LOVENOX SQ URINE CX CXR COVID 19 SWAB : TO TELEMETRY UNIT PLAN: ISOLATION
[2019-09-21] MEDS: Docusate 100mg cap ORAL SCH ×2 (09:00→18:00)
--- NOTE | 2019-09-21 09:22 | Diagnostic Imaging Report ---
Procedure: XRAY Chest 1v Reason for study: Reason For Exam: SOB Comparison films: 05/12/2019. FINDINGS: A single one view chest is obtained. Vascularity is normal. There are extensive bilateral alveolar densities with air bronchograms likely diffuse infiltrates. Superimposed edema cannot be excluded. Cardiac silhouette is obscured. CP angles are sharp. The bony thorax appear unremarkable. IMPRESSION: Extensive bilateral alveolar disease likely diffuse infiltrates. Superimposed edema cannot be excluded.
--- NOTE | 2019-09-21 09:55 | NUR ---
NURSE NOTES: Held AM PO meds. Pt unable to follow simple commands, on non-rebreather oxygen, shallow breathing, might aspirate with PO intake at the moment.
--- NOTE | 2019-09-21 10:58 | NUR ---
NURSE NOTES: Dr Gibson came and seen the pt. Per MD, pt will stay in Telemetry. Pt DNR/DNI status.
--- NOTE | 2019-09-21 11:18 | NUR ---
*-* INSURANCE *-* ALL CLINICALS AND REVIEWS HAVE BEEN FAXED TO: SIL Kumar fax# [phone] & Alan
--- NOTE | 2019-09-21 11:18 | NUR ---
*-* NO INSURANCE INFORMATION IN THE BAR UNABLE TO SEND CLINICALS OR REVIEWS *-*
[2019-09-21] MEDS: NovoLOG Insulin Flexpen SUBQ SCH ×3 (11:30→21:00)
--- NOTE | 2019-09-21 17:15 | Consultation ---
DATE OF CONSULTATION: 09/21/2019 PULMONARY CONSULTATION HISTORY OF PRESENT ILLNESS: This is an 83-year-old female with history of dementia, diabetes mellitus, previous CVA, hypertension, half-way resident who presented to the hospital with respiratory distress. She was admitted early this morning. This morning, she was seen to be on a non-rebreather mask. She is tachypneic. Saturations only 78% on non-rebreather mask. The patient is known to be DNR/DNI. The patient unable to provide any further history. PAST MEDICAL HISTORY: Diabetes mellitus, hypertension, CHF, CVA, TIA. PAST SURGICAL HISTORY: Not known. MEDICATIONS: Her current list of medications include Tylenol, Colace, DuoNeb, Lexapro. She has also received azithromycin, cefepime, and Lovenox 120 mg as well as fluids. ALLERGIES: To aspirin, ciprofloxacin, penicillin. SOCIAL HISTORY: longterm resident. REVIEW OF SYSTEMS: Not obtainable. PHYSICAL EXAMINATION: GENERAL: Reveals 83-year-old female. VITAL SIGNS: Blood pressure is 110/70, heart rate is 105, respirations 28, O2 saturation 80% on non-rebreather mask. HEENT: Unremarkable. CHEST: Diminished breath sounds bilaterally with normal heart sounds. ABDOMEN: Soft. EXTREMITIES: There is no edema. LABORATORY DATA: Lab testing shows white count 96164, hemoglobin 16. Lactic acid 3.7, now 2.9. C-reactive protein 13.9. Troponin 0. Alkaline phosphatase 192. . Coags show D-dimer of 4.5. Urinalysis shows pyuria. X-ray of the chest obtained yesterday, which shows bilateral diffuse infiltrates. IMPRESSION: 1. Bilateral pneumonia. 2. longterm acquired pneumonia. 3. Rule out COVID-19 pneumonia. 4. UTI. 5. Dementia. 6. DNR. 7. . 8. CHF. 9. Diabetes. DISCUSSION: Admit to the hospital. We will order oxygen and pulmonary hygiene. We will start broad-spectrum antibiotics. We will follow carefully. Order fluids. May require comfort care. David Gibson M.D. DR: Corbin JOB#: [id number] CC:
--- NOTE | 2019-09-21 18:18 | NUR ---
NURSE NOTES: Informed Dr Jimenes that PO meds and Novolog were held because pt is at aspiration risk and NPO respectively. Updated PMD that O2 sat still 70s to low 80s and that Dr Gibson is also aware. Per Dr Gibson, okay to stay in Telemetry with such O2 sat, and to provide comfort measures. Dr Jimenes aware with pt's current status. No new orders.
--- NOTE | 2019-09-21 19:15 | History and Physical Report ---
DATE OF ADMISSION: 09/21/2019 HISTORY OF PRESENT ILLNESS: This is elderly 83-year-old female who was living [facility] detention with past medical history of hypertension, diabetes, comorbid obesity, depression, history of intracranial bleed came to the emergency room for hypoxia. Patient was also found as COVID positive. Patient is a DNR status. MEDICATIONS: She was taking insulin, Levemir. ALLERGIES: To aspirin, Cipro, penicillin. PHYSICAL EXAMINATION: GENERAL: This is elderly female, nonverbal, lethargic, unresponsive. VITAL SIGNS: Blood pressure is 115/78, pulse 105, respirations 15, temperature is 98.1. HEENT: Eyes are closed. NECK: Supple. CHEST: Bilateral decreased breath sounds. CARDIOVASCULAR: Regular rhythm. Tachycardia. ABDOMEN: Soft. Positive bowel sounds. Nontender. EXTREMITIES: No edema. GENITOURINARY: Deferred. LABORATORY DATA: White counts are 13,000, hemoglobin 16, hematocrit 49, platelets are normal. Chemistry panel, sodium 139, potassium 3.8, BUN 28, creatinine 1.2, glucose 306. Lactic acid is 2.90. Troponins are 00. C-reactive protein 14. Her chest x-ray is showing some extensive bilateral alveolar disease like diffuse infiltrate superimposed edema. ASSESSMENT: 1. Acute hypoxia. 2. COVID pneumonia. 3. Bilateral pneumonia. 4. Diabetes. 5. Hypertension. PLAN: Patient is lethargic. We will keep her NPO. IV fluids, supportive treatment. DNR/DNI. Continue cefepime. Continue Colace. NPO. Discussed with the charge nurse and discussed with also Dr. Gibson, pulmonary consult. Kane Jimenes M.D. DR: SHIVA JOB#: [id number] CC:
--- NOTE | 2019-09-21 19:42 | NUR ---
HAND-OFF: Report given to SOUMYA Vila. Pt O2 sat still on 70s. Endorsed plan of care.
--- NOTE | 2019-09-21 19:45 | NUR ---
NURSE NOTES: Received report from SOUMYA Adams. Patient is alert and oriented x 0. Patient is on non-rebreather mask @ 15Lpm. IV site is on right AC g-20 running fluid of Normal saline @ 75cc/hour that is patent and intact. Patient is on NPO. monitor and storage bin tender is on shows sinus tachycardia. Safety measures are in placed, bed in lowest and lock position, side rails up x 2. Bed alarm is on. Call light and bedside table within reach. Will continue plan of care.
[2019-09-22] VITALS: BP 151/93
--- NOTE | 2019-09-22 01:15 | Consultation ---
DATE OF CONSULTATION: 09/21/2019 CONSULTING PHYSICIAN: Khalif Talley MD. HISTORY OF PRESENT ILLNESS: This is an 83-year-old female who is well known to me from [facility] who has been admitted to the hospital for medical stabilization. The patient has a history of obesity, depression, psychotic disorder, diabetes mellitus, hypertension. The patient is found to be COVID positive. The patient had episodes of agitation. She is now having waxing waning consciousness. Not able to be engaged, confused, disoriented with poor p.o. intake. Her O2 saturation is low. Patient also was agitated earlier. PAST PSYCHIATRY HISTORY: Dementia, psychotic disorder. PAST MEDICAL HISTORY: Hypertension, CHF, CVA, TIA. ALLERGIES: No known drug allergies. SUBSTANCE ABUSE HISTORY: No known illicit drug use or alcohol. MENTAL STATUS EXAMINATION: The patient is having waxing waning consciousness, confused, disoriented. Unable to be engaged. Mood is anxious. Affect is flat. Thought process is concrete. Thought content, no suicidal or homicidal ideation. Cognition is impaired. Insight is impaired. ASSESSMENT: [place] I Acute toxic encephalopathy. Depression. Psychotic disorder. [place] II Deferred. [place] III As above. [place] IV Low. [place] V 20. PLAN: 1. All of her home medications are held. 2. We will reassess and resume medications if needed. Khalif Talley M.D. DR: GAETANO JOB#: [id number] CC:
[2019-09-22 04:00] VITALS: BP 159/91
[2019-09-22] MEDS ORDERED: NovoLOG Insulin Flexpen SUBQ SCH (06:30)
--- NOTE | 2019-09-22 07:47 | NUR ---
HAND-OFF: Report given to SOUMYA Heredia. Patient is saturating 73% in non-rebreather mask, RN made aware that MD's were aware. Plan of care ednorsed.
--- NOTE | 2019-09-22 07:48 | NUR ---
NURSE NOTES: Patient stable, AOx0 with s/sx of respiratory distress. Patient in high fowlers on NRB O2 15L, O2 sat 76% and tachypnic with RR even but labored at 40. Patient DNR/DNI. Side rails upx2, call light within reach, bed low and locked. SOUMYA Vila endorsed SCD. Will place on patient. Will continue to monitor.
[2019-09-22 08:00] VITALS: BP 101/44
[2019-09-22] MEDS: Docusate 100mg cap ORAL SCH (08:30)
--- NOTE | 2019-09-22 08:58 | Pulmonology Progress Note ---
Subjective Interval Events: none new Constitutional: Reports: no symptoms HEENT: Repors: no symptoms Respiratory: Reports: no symptoms Cardiovascular: Reports: no symptoms Gastrointestinal/Abdominal: Reports: no symptoms Allergies: Coded Allergies: ASPIRIN (Verified Allergy, Unknown, 12/30/15) CIPROFLOXACIN (Verified Allergy, Unknown, 12/30/15) PENICILLINS (Verified Allergy, Unknown, 12/30/15) Uncoded Allergies: PCN (Allergy, Unknown, 09/21/19) Objective Last 24 Hour Vital Signs Date Time Temp Pulse Resp B/P (MAP) Pulse Ox O2 Delivery O2 Flow Rate FiO2 09/22/19 08:00 98.4 134 28 101/44 (63) 65 09/22/19 04:00 98.5 122 28 159/91 (113) 80 09/22/19 04:00 130 09/22/19 00:00 98.2 117 25 151/93 (112) 85 09/22/19 00:00 114 09/21/19 21:00 Non-Rebreather 15.0 09/21/19 20:06 89 Non-Rebreather 15.0 100 09/21/19 20:00 98.7 113 25 153/77 (102) 88 09/21/19 20:00 113 09/21/19 16:03 110 09/21/19 16:00 98.6 86 26 111/76 (88) 75 09/21/19 12:00 97.9 90 28 124/73 (90) 75 09/21/19 11:33 114 09/21/19 09:00 Non-Rebreather 15.0 Intake and Output 09/21/19 09/22/19 19:00 07:00 Output Total 300 ml 300 ml Balance -300 ml -300 ml Output Urine Total 300 ml 300 ml General Appearance: no acute distress HEENT: normocephalic Respiratory: chest wall non-tender Cardiovascular: normal peripheral pulses Abdomen: normal bowel sounds Extremities: no cyanosis Microbiology Date/Time Source Procedure Growth Status 09/21/19 00:20 Blood Blood Culture - Preliminary Resulted 09/21/19 00:05 Blood Blood Culture - Preliminary Gram Positive Cocci Resulted 09/21/19 00:37 Urine,Clean Catch Urine Culture - Preliminary Gram Negative Jason Resulted Current Medications Medications (Trade) Dose Ordered Sig/Marah Route PRN Reason Start Time Stop Time Status Last Admin Dose Admin Acetaminophen (Tylenol) 650 mg Q6H PRN ORAL FEVER > 100.4 f 09/21/19 08:45 10/21/19 08:44 Acetaminophen (Tylenol) 650 mg Q6H PRN ORAL MILD PAIN 09/21/19 08:45 10/21/19 08:44 Albuterol/ Ipratropium (Albuterol/ Ipratropium) 3 ml Q6H PRN HHN Shortness of Breath 09/21/19 08:45 09/26/19 08:44 Bisacodyl (Dulcolax) 10 mg DAILY PRN RECTAL Constipation 09/21/19 08:45 12/20/19 08:44 Cefepime HCl 1 gm/ Dextrose 55 ml @ 110 mls/hr Q24H IVPB 09/22/19 09:00 09/29/19 08:59 09/22/19 08:30 Dextrose (Dextrose 50%) 25 ml Q30M PRN IV Hypoglycemia 09/21/19 22:45 12/20/19 22:44 Dextrose (Dextrose 50%) 50 ml Q30M PRN IV Hypoglycemia 09/21/19 22:45 12/20/19 22:44 Docusate Sodium (Colace) 100 mg TWICE A DAY ORAL 09/21/19 09:00 10/21/19 08:59 Escitalopram Oxalate (Lexapro) 10 mg DAILY ORAL 09/21/19 09:00 10/21/19 08:59 Insulin Aspart (NovoLOG) BEFORE MEALS AND HS SUBQ 09/22/19 06:30 12/21/19 06:29 Magnesium Hydroxide (Mom) 30 ml BID PRN ORAL GI UPSET AND/OR HEARTBURN 09/21/19 08:45 10/21/19 08:44 Methylprednisolone Sodium Succinate (Solu-MEDROL) 40 mg EVERY 12 HOURS IVP 09/22/19 09:00 12/21/19 08:59 09/22/19 08:30 Mineral Oil (Fleet's Mineral Oil Enema) 133 ml DAILY PRN RECTAL Constipation 09/21/19 08:45 10/21/19 08:44 Sodium Chloride 1,000 ml @ 75 mls/hr [id number] IV 09/21/19 11:28 10/21/19 11:27 09/22/19 02:16 Vancomycin HCl (Vanco pharmacy to dose) 1 ea DAILY PRN MISC Per rx protocol 09/22/19 08:30 10/22/19 08:29 Vancomycin HCl 1 gm/Dextrose 275 ml @ 183.708 mls/hr Q24H IVPB 09/23/19 10:00 09/28/19 09:59 Vancomycin/Sodium Chloride 275 ml @ 137.5 mls/ hr ONCE IVPB 09/22/19 10:00 09/22/19 11:00 Assessment/Plan Assessment/Plan IMPRESSION: 1. Bilateral pneumonia. 2. group home acquired pneumonia. 3. Rule out COVID-19 pneumonia. 4. UTI. 5. Dementia. 6. DNR. 7. Refractory hypoxemia 8. CHF. 9. Diabetes. DISCUSSION: Continue oxygen and pulmonary hygiene. On broad-spectrum antibiotics. I will follow carefully. IV fluids. May require comfort care. poor prognosis Ruthann Zarate Omar Syed MD September 22, 2019 08:58
[2019-09-22] MEDS ORDERED: Cefepime HCl 1 GM in D5W 55 ML IVPB SCH (09:00)
[2019-09-22] MEDS ORDERED: Solu-MEDROL 40mg Inj IVP SCH (09:00)
--- NOTE | 2019-09-22 09:00 | NUR ---
NURSE NOTES: Spoke with Dr. Jimenes about patient's deteriorating condition and per MD he will speak with family. RR decreased and found to be 15 on NRB 15L.
--- NOTE | 2019-09-22 09:30 | NUR ---
NURSE NOTES: Patient's condition quickly deteriorated. Patient's RR now agonal on NRB 15L. Patient's HR now down to 47. ABGs collected. Will notify
--- NOTE | 2019-09-22 09:50 | NUR ---
NURSE NOTE: Patient asystole. No pulses palpable. No heart or breath sounds. Pupils dilated and fixed. IV discontinued, taken off NRSam and laya lima/kenny. Nursing supervisor seaming Misook at bedside. Patient pronounced. Will perform post mortem care. Addendum: 09/22/19 at 1100 by ELIJAH ROBERT RN Patient asystole at 0945. aware and will speak with AM.
--- NOTE | 2019-09-22 09:56 | NUR ---
PRONOUNCEMENT: No Code. Called to pronounce patient. Absence of spontaneous respirations, no cardiac or breath sounds on auscultation. Pupils fixed and dilated. No carotid pulse or chest movement. Patient at [address] Thomason notified PER Kyle Celaya RN . Family was notified at [address] Jimenes.
[2019-09-22] MEDS ORDERED: Vancomycin 1.5gm/NS Premix q24h IVPB SCH (10:00)
--- NOTE | 2019-09-22 10:30 | NUR ---
NURSE NOTES: Post mortem care performed. Addendum: 09/22/19 at 1253 by ELIJAH ROBERT RN Spoke with sister at this time and no arrangements have been made. Nursing Tin Stacker notified and patient will be taken down to [facility].
--- NOTE | 2019-09-22 12:50 | NUR ---
NURSE NOTES: Patient taken down to morgue.
[2019-09-23] MEDS ORDERED: Vancomycin 1gm in D5W 275ml IVPB SCH (10:00)
--- NOTE | 2019-09-24 11:17 | NUR ---
INSURANCE *-* ALL CLINICALS AND REVIEWS HAVE BEEN FAXED TO: SIL Kumar fax# [phone] & Alan
--- NOTE | 2019-09-24 11:18 | NUR ---
INSURANCE *-* ALL CLINICALS AND REVIEWS HAVE BEEN FAXED TO: SIL Kumar fax# [phone] & Alan
--- NOTE | 2019-09-24 11:23 | NUR ---
*-* NO DISCHARGE SUMMARY IN THE SYSTEM *--*
--- NOTE | 2019-09-24 11:30 | Discharge Summary ---
DATE OF ADMISSION: 09/21/2019 DATE OF DISCHARGE: 09/22/2019 SUMMARY This is an elderly 83-year-old female who came to the emergency room for having acute hypoxia and sepsis. The patient this morning had a fever and hypoxia. She was on maximum oxygen at 15 liters, saturating 60% to 70%. Her ABG was severe metabolic acidosis. Discussed with Dr. Gibson and the patient was DNR/DNI. I also updated the family. The patient with COVID, pneumonia, and ARDS. The patient had a poor prognosis. The patient received oxygen, nonbreathing mask, and she received IV fluid, IV antibiotics, supportive treatment. Kane Jimenes M.D. DR: Graham JOB#: [id number] CC:
--- NOTE | 2019-09-24 11:41 | NUR ---
*-* INSURANCE *-* ALL CLINICALS AND REVIEWS HAVE BEEN FAXED TO: SIL Kumar fax# [phone] & Alan
--- NOTE | 2019-09-24 11:57 | Discharge Summary ---
Discharge Summary Discharge Summary _ DISCHARGE SUMMARY ( please refer to dia rodriguez done by Dr Jimenes) DISCHARGE DIAGNOSES Sepsis Acute hypoxemic respiratory failure Bilateral pneumonia Confirmed COVID-19 infection (SARS COV 2 by PCR 09/20 detected) UTI Acute toxic encephalopathy Dementia CHF Diabetes mellitus type 2 with hyperglycemia Depression Psychotic disorder DNR/DNI status Rhoda Cancino NP Sep 24, 2019 11:57
--- NOTE | 2019-09-25 11:26 | NUR ---
*-* INSURANCE *-* DSICHARGE SUMMARY HAS BEEN FAXED TO: SIL Kumar fax# [phone] & Alan
== END 2019-09-22 12:51 | disposition expired | DRG 177 ==
LOC: EDBD 00:14 → EMR 00:45 → 2E 03:24 → EDBEDREQ 06:32 → 2E 06:49
DX: U07.1 COVID-19 (principal); G92 Toxic encephalopathy; J80 Acute respiratory distress syndrome; J12.89 Other viral pneumonia; N39.0 Urinary tract infection, site not specified; F03.90 Unspecified dementia, unspecified severity, without behavioral disturbance, psychotic disturbance, mood disturbance, and anxiety; I11.0 Hypertensive heart disease with heart failure; Z66 Do not resuscitate; Z88.6 Allergy status to analgesic agent; Z88.1 Allergy status to other antibiotic agents; Z88.0 Allergy status to penicillin; Z79.4 Long term (current) use of insulin; E11.65 Type 2 diabetes mellitus with hyperglycemia; F32.9 Major depressive disorder, single episode, unspecified; F29 Unspecified psychosis not due to a substance or known physiological condition; Z86.73 Personal history of transient ischemic attack (TIA), and cerebral infarction without residual deficits
CPT/HCPCS: 36415; 36600; 71045; 80053; 81003; 82550; 82553; 82728; 82803; 82962; 83605; 84484; 85025; 85379; 85651; 86140; 87040; 87081; 87086; 87181; 87635; 93005; 96361; 96365; 96367; 99291; J1815; J7030